=== PATIENT | male | born 1935 | race Caucasian/White ===

== ENCOUNTER → 2017-01-27 | Outpatient (CLI) | payer OTHER, MEDICARE ==
[~2017-01-27] MED LIST: ACYC1CAP8 PO; ASPEC81 PO; ATOR-54 PO; CYAN10004 PO; CYAN500T PO; FRS/40 PO; HYDR-3419 PO; INSDGI SC; INSULIN ASPART; METO25TA3 PO; MISCCAP80 PO; ONDA4TAB4 PO; POLY335019; SERT50TA PO
[2017-01-27 14:08] LABS: ALT/SGPT 29 U/L (12-78); AST/SGOT 14 U/L (15-37); BLOOD UREA NITROGEN 19 mg/dl (7-18); BUN/CREATININE RATIO 16.1 (10-20); CALCIUM 8.7 mg/dl (8.5-10.1); CARBON DIOXIDE 27 mmol/L (21-32); CHLORIDE 107 mmol/L (98-107); GLUCOSE 191 mg/dl (70-99); POTASSIUM 4.3 mmol/L (3.5-5.1); SODIUM 142 mmol/L (136-145)
[2017-01-27 14:11] LABS: ALB/GLOB RATIO 1.2 (0.9-2); ALKALINE PHOSPHATASE 123 U/L (45-117); CHOLESTEROL 169 mg/dl (0-200); CHOLESTEROL/HDL RATIO 3.9; HDL CHOLESTEROL 43 mg/dl; LDL CHOLESTEROL CALCULATED 97 mg/dl; TRIGLYCERIDES 147 mg/dl (0-150); VERY LOW DENSITY LIPOPROT CALC 29 mg/dl
[2017-01-27 14:37] LABS: ESTIMATED AVERAGE GLUCOSE 174 mg/dl; HA1C FLAG Normal (Normal)
== END | disposition home or self-care (01) ==
LOC: C.LABMFLN 10:07
PROVIDERS: ATTEND Family Medicine
DX: E78.5 Hyperlipidemia, unspecified (principal); N25.81 Secondary hyperparathyroidism of renal origin; E11.9 Type 2 diabetes mellitus without complications; E55.9 Vitamin D deficiency, unspecified; C81.90 Hodgkin lymphoma, unspecified, unspecified site

== ENCOUNTER → 2017-01-28 | Outpatient (CLI) | payer OTHER, MEDICARE ==
[~2017-01-28] MED LIST changes: +OPTIRAY 320 IV PRN
--- NOTE | 2017-01-28 12:51 | DIAGNOSTIC IMAGING REPORT ---
CT SCAN OF THE CHEST, ABDOMEN, AND PELVIS WITH IV CONTRAST CLINICAL HISTORY: Lymphoma. COMPARISON STUDY: CT scan of the chest, abdomen, and pelvis dated 10/19/2016. Chest CT dated 09/15/2011. TECHNIQUE: Following the IV administration of 93 of Optiray 320, CT scan of the chest, abdomen, and pelvis was performed from the thoracic inlet to the proximal femora. Images are reviewed in the axial, sagittal, and coronal planes. IV contrast was administered without complication. Automated dose control exposure was utilized. CT DOSE: 826.51 mGy.cm FINDINGS: CHEST: Thyroid: Imaged portions of the thyroid gland are normal in size and attenuation. Thoracic aorta: There is atherosclerotic calcification of the thoracic aorta, which is normal in caliber and demonstrates standard 3-vessel arch anatomy. No dissection is seen. Pulmonary vasculature: The pulmonary trunk is normal in caliber. There are no filling defects identified in the central pulmonary vessels to indicate pulmonary was. Note that this examination was not protocoled for evaluation of the pulmonary arteries. Heart: A cardiac pacemaker is again noted in the left chest wall. The heart is enlarged and without pericardial effusion. The coronary arteries are densely calcified. Lungs and pleural spaces: Emphysematous change is noted. No airspace consolidation or pleural effusion is seen. There is bibasilar scarring versus atelectasis. Peribronchial thickening is noted in the lower lobes. Fluid/secretions are present within the dependent lower lobe airways, right greater than left. There are numerous calcified granulomas. A 3 mm noncalcified pleural-based nodule in the right middle lobe on image #155 is unchanged from 2011 and of doubtful significance. The trachea is clear. Mediastinum: There are no pathologically enlarged mediastinal lymph nodes. Calcified nodes are identified. Lesley: Clear. Calcified hilar nodes are observed. Axillae: There is no axillary lymphadenopathy. Bony thorax: The skeletal structures are osteopenic. Degenerative change is noted throughout the thoracic spine. No lytic or blastic lesions are identified. ABDOMEN AND PELVIS: Liver: The contrast-enhanced liver is enlarged, measuring 21 cm in length. The liver is otherwise normal in contour and attenuation. There is no intrahepatic or ductal dilatation. The hepatic veins and portal veins are patent. Gallbladder: There are numerous calcified gallstones. Spleen: Normal in size and attenuation, measuring 10.0 cm in length. Pancreas: The pancreas is markedly atrophic. There are numerous glandular calcifications consistent with chronic pancreatitis. Mild prominence of the pancreatic duct is unchanged from previous and likely related to glandular atrophy. A 9 mm sidebranch IPMN is suspected in the uncinate process on image #166. Adrenal glands: Unremarkable. Kidneys: The kidneys are atrophic and without hydronephrosis. There is extensive bilateral perinephric stranding, similar to previous. Bibasilar subcentimeter cortical hypodensities likely reflect cysts but are too small for definitive characterization. Abdominal vasculature: There is ectasia and advanced atherosclerotic calcification of the abdominal aorta. There is likely segmental thrombosis of the right internal iliac artery. Stomach and bowel: There is a small hiatal hernia. The small bowel and colon are normal in course and caliber. There is mild to moderate colonic fecal retention. There is mild colonic diverticulosis without CT evidence of acute diverticulitis. The appendix is well-visualized and normal. Peritoneum: There is no intraperitoneal free air or abdominal ascites. There is a small fat-containing umbilical hernia. Foci of induration within the ventral abdominal pannus are likely related to subcutaneous injections. Lymphadenopathy: There has been no significant change in the appearance of retrocrural, retroperitoneal, and iliac chain lymphadenopathy as compared to 10/19/2016. A retrocrural lesion on image #163 measures 3.2 x 1.9 (previously measured 3.4 x 2.0 cm). Retroaortic lymphadenopathy on image #234 measures 2.0 x 4.7 cm (previously measured 2.0 x 4.4 cm). There is also bulky confluent external iliac chain lymphadenopathy. This measures up to 2.3 cm in thickness as seen on image #360 (previously measured up to 2.0 cm). There is no mesenteric or inguinal lymphadenopathy. Pelvic viscera: The bladder, prostate, and seminal vesicles are normal as visualized. Skeletal structures: The skeletal structures are osteopenic. Advanced degenerative change is seen at the sacroiliac joints bilateral. Insufficiency fracture may be present in the right medial ilium. Degenerative changes are also present involving the hips. There is moderate to advanced lumbosacral spondylosis. Vertebral body height is maintained throughout the lumbosacral spine. IMPRESSION: 1. No lymphadenopathy is identified in the thorax. 2. Cardiomegaly and emphysema. 3. There is no airspace consolidation or pleural effusion. 4. Hepatomegaly and cholelithiasis. 5. No significant change in the appearance of retrocrural, retroperitoneal, and iliac chain lymphadenopathy as compared to 10/19/2016. 6. The spleen is normal in size. 7. Unchanged extensive perinephric stranding/soft tissue. Lymphomatous involvement is not excluded. 8. There is evidence of chronic pancreatitis. 9. Colonic diverticulosis without CT evidence of acute diverticulitis. 10. Additional changes as above. Electronically signed by: Obed Wright M.D. 01/28/2017 12:50 PM Dictated Date/Time: 01/28/2017 12:32 PM
== END | disposition home or self-care (01) ==
LOC: C.CTS 11:20
PROVIDERS: ATTEND Nurse Practitioner Family
DX: C81.90 Hodgkin lymphoma, unspecified, unspecified site (principal); I51.7 Cardiomegaly; J43.9 Emphysema, unspecified; R16.0 Hepatomegaly, not elsewhere classified; K80.20 Calculus of gallbladder without cholecystitis without obstruction; K57.90 Diverticulosis of intestine, part unspecified, without perforation or abscess without bleeding

== ENCOUNTER → 2017-03-31 | Outpatient (CLI) | payer OTHER, MEDICARE ==
[~2017-03-31] MED LIST changes: +ACYC-57 PO; -ACYC1CAP8 PO; -OPTIRAY 320 IV PRN
[2017-03-31 17:53] LABS: BASO % 0.2 %; BASO ABS # 0.02 K/uL (0-0.2); COMPLETE YES; EOS % 0.2 %; HEMATOCRIT 39.8 % (42-52); IG% 0.6 %; LYMPH % 26.9 %; LYMPH ABS # 3.34 K/uL (1.2-3.4); MEAN CELL VOLUME 95.2 fL (80-100); MEAN CORPUSCULAR HEMOGLOBIN 31.3 pg (25-34); MEAN CORPUSCULAR HGB CONC 32.9 g/dl (32-36); MEAN PLATELET VOLUME 10.6 fL (7.4-10.4); MONO % 4.2 %; NEUT % 67.9 %; PLATELET COUNT 198 K/uL (130-400); RED BLOOD COUNT 4.18 M/uL (4.7-6.1); WHITE BLOOD COUNT 12.43 K/uL (4.8-10.8)
[2017-03-31 18:47] LABS: ALT/SGPT 37 U/L (12-78); AST/SGOT 16 U/L (15-37); BLOOD UREA NITROGEN 32 mg/dl (7-18); BUN/CREATININE RATIO 23.1 (10-20); CALCIUM 8.9 mg/dl (8.5-10.1); CARBON DIOXIDE 25 mmol/L (21-32); CHLORIDE 109 mmol/L (98-107); GLUCOSE 186 mg/dl (70-99); POTASSIUM 4.8 mmol/L (3.5-5.1); SODIUM 141 mmol/L (136-145)
[2017-03-31 18:50] LABS: ALB/GLOB RATIO 1.3 (0.9-2); ALKALINE PHOSPHATASE 94 U/L (45-117)
--- NOTE | 2017-04-21 08:51 | CODING QUERY NO DIAGNOSIS ---
TREATMENT RENDERED WITHOUT A DIAGNOSIS To promote full compliance with coding requirements relating to patient care, physician participation is requested in all cases of statistical technician uncertainty. Please assist us with providing a diagnosis/symptom for the test(s) below: A diagnosis/symptom was not documented on your Order. A valid diagnosis/symptom is required to bill all insurances. Please remember that we are unable to code a diagnosis of rule out, probable, possible, questionable, or suspected. Tests that require a diagnosis: * CBC W/ AUTO DIFF DIAGNOSIS: * CMP DIAGNOSIS: * LDH DIAGNOSIS: Provider Signature: Date: Thank you Car[employer] About Us Information Management Once completed, please kindly fax back to [phone] For questions please call [phone]
== END | disposition home or self-care (01) ==
LOC: C.LABMFLN 08:38
PROVIDERS: ATTEND Nurse Practitioner Family
DX: C81.90 Hodgkin lymphoma, unspecified, unspecified site (principal)

== ENCOUNTER → 2017-04-29 | Outpatient (CLI) | payer OTHER, MEDICARE ==
[~2017-04-29] MED LIST changes: +OPTIRAY 320 IV PRN
--- NOTE | 2017-04-29 12:45 | DIAGNOSTIC IMAGING REPORT ---
CHEST CT WITH CONTRAST CT DOSE: 1295.28 mGycm HISTORY: Lymphoma LYMPHOMA TECHNIQUE: Multiaxial CT images of the chest were performed following the intravenous administration of contrast. COMPARISON: 01/28/2017 FINDINGS: The lungs are clear. The mediastinal vascular structures are within normal limits. No mediastinal or hilar lymphadenopathy. No pleural effusion or pneumothorax. Limited views of the upper abdomen demonstrate a normal liver and spleen. No significant adenopathy. No focal infiltrative changes. Several small calcified granulomas stable from the prior study. IMPRESSION: No significant abnormality identified within the chest. No evidence for pathologic adenopathy. Electronically signed by: Paulino Carlton M.D. 04/29/2017 12:44 PM Dictated Date/Time: 04/29/2017 12:40 PM
--- NOTE | 2017-04-29 12:50 | DIAGNOSTIC IMAGING REPORT ---
CT ABD/PELVIS IV AND ORAL CONT CLINICAL HISTORY: LYMPHOMA COMPARISON STUDY: 01/28/2017 TECHNIQUE: Following the IV administration of 94 mL of Optiray-320, CT scan of the abdomen and pelvis was performed from the lung bases to the proximal femurs. Images are reviewed in the axial, sagittal, and coronal planes. IV contrast was administered without complication. CT DOSE: FINDINGS: Lower chest: There are tiny right middle lobe nodules, likely postinflammatory. There are atelectatic changes at the right medial posterior lung base. Liver: There is mild hepatic steatosis. No focal masses are visualized. Portal vein appears patent. Gallbladder: Cholelithiasis Spleen: Normal in size and attenuation. Pancreas: The pancreas is atrophic. There are multiple calcifications. There is ductal dilatation. The findings are likely secondary to chronic pancreatitis. There is a stable 9 mm cystic lesion in the uncinate process, likely representing a sidebranch IPMN Adrenal glands: Unremarkable. Kidneys: There is bilateral perinephric infiltration. There is a 1 cm right renal cyst. There is a 6 mm left renal cyst. No solid cortical masses are visualized.. Bowel: There are no transition zones indicate bowel obstruction. There is no acute diverticulitis. There is no evidence of acute appendicitis Peritoneum: There is no intraperitoneal free air or abdominal ascites. Vasculature: The abdominal aorta is normal in course and caliber. Adenopathy: There is no significant change in the retrocrural crural, aortocaval, and iliac chain adenopathy. Pelvic viscera: The bladder, and pelvic viscera are unremarkable. Skeletal structures: Squatting changes involve the SI joints bilaterally. There is an equivocal cold old healed insufficiency fracture right medial iliac bone IMPRESSION: 1. Cholelithiasis 2. No evidence of bowel obstruction. No evidence of free air 3. Stable "matted" retrocrural, retroperitoneal, and iliac chain lymphadenopathy 4. Stable bilateral perinephric infiltration 5. Evidence of chronic pancreatitis with pancreatic calcifications and ductal dilatation. 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 04/29/2017 12:49 PM Dictated Date/Time: 04/29/2017 12:40 PM
== END | disposition home or self-care (01) ==
LOC: C.CTS 11:18
PROVIDERS: ATTEND Internal Medicine Hematology & Oncology
DX: C81.90 Hodgkin lymphoma, unspecified, unspecified site (principal)

== ENCOUNTER → 2017-06-01 | Outpatient (CLI) | payer OTHER, MEDICARE ==
[~2017-06-01] MED LIST changes: -ACYC-57 PO; +ACYC1CAP8 PO; -OPTIRAY 320 IV PRN
[2017-06-01 13:13] LABS: BASO % 0.3 %; BASO ABS # 0.02 K/uL (0-0.2); COMPLETE YES; EOS % 3.8 %; HEMATOCRIT 39.4 % (42-52); IG% 0.1 %; LYMPH % 31.5 %; LYMPH ABS # 2.42 K/uL (1.2-3.4); MEAN CELL VOLUME 95.4 fL (80-100); MEAN CORPUSCULAR HEMOGLOBIN 32.9 pg (25-34); MEAN CORPUSCULAR HGB CONC 34.5 g/dl (32-36); MEAN PLATELET VOLUME 10.6 fL (7.4-10.4); NEUT % 57.3 %; PLATELET COUNT 164 K/uL (130-400); RED BLOOD COUNT 4.13 M/uL (4.7-6.1); WHITE BLOOD COUNT 7.69 K/uL (4.8-10.8)
[2017-06-01 13:36] LABS: ALB/GLOB RATIO 1.3 (0.9-2); ALKALINE PHOSPHATASE 108 U/L (45-117); ALT/SGPT 26 U/L (12-78); AST/SGOT 17 U/L (15-37); BLOOD UREA NITROGEN 16 mg/dl (7-18); CALCIUM 9.1 mg/dl (8.5-10.1); CARBON DIOXIDE 27 mmol/L (21-32); CHLORIDE 110 mmol/L (98-107); CHOLESTEROL 174 mg/dl (0-200); CHOLESTEROL/HDL RATIO 4.5; CREATININE 0.99 mg/dl (0.60-1.40); GLUCOSE 191 mg/dl (70-99); HDL CHOLESTEROL 39 mg/dl; LDL CHOLESTEROL CALCULATED 106 mg/dl; POTASSIUM 4.6 mmol/L (3.5-5.1); SODIUM 143 mmol/L (136-145); TRIGLYCERIDES 146 mg/dl (0-150); VERY LOW DENSITY LIPOPROT CALC 29 mg/dl
[2017-06-01 13:46] LABS: ESTIMATED AVERAGE GLUCOSE 180 mg/dl; HA1C FLAG Normal (Normal)
== END | disposition home or self-care (01) ==
LOC: C.LABMFLN 08:28
PROVIDERS: ATTEND Family Medicine
DX: E78.5 Hyperlipidemia, unspecified (principal); D64.9 Anemia, unspecified; E11.9 Type 2 diabetes mellitus without complications; E55.9 Vitamin D deficiency, unspecified

== ENCOUNTER → 2017-09-06 | Outpatient (CLI) | payer OTHER, MEDICARE ==
[2017-09-06 18:19] LABS: URINE APPEARANCE CLEAR (CLEAR); URINE BILIRUBIN NEG (NEG); URINE COLOR YELLOW; URINE NITRITE NEG (NEG); URINE SPECIFIC GRAVITY 1.009 (1.000-1.030); UROBILINOGEN NEG (NEG)
[2017-09-06 18:28] LABS: MANUAL MICROSCOPIC REQUIRED? NO; REVIEW REQ? NO
== END | disposition home or self-care (01) ==
LOC: C.LABMFLN 13:56
PROVIDERS: ATTEND Family Medicine
DX: R31.0 Gross hematuria (principal)

== ENCOUNTER → 2017-09-07 | Outpatient (CLI) | payer OTHER, MEDICARE ==
[2017-09-07 13:30] LABS: BLOOD UREA NITROGEN 14 mg/dl (7-18); CREATININE 1.04 mg/dl (0.60-1.40)
== END | disposition home or self-care (01) ==
LOC: C.LABMFLN 08:06
PROVIDERS: ATTEND Family Medicine
DX: R31.0 Gross hematuria (principal)

== ENCOUNTER → 2017-09-12 | Outpatient (CLI) | payer OTHER, MEDICARE ==
[~2017-09-12] MED LIST changes: +ACYC-57 PO; -ACYC1CAP8 PO; +OPTIRAY 320 IV PRN
--- NOTE | 2017-09-12 12:16 | DIAGNOSTIC IMAGING REPORT ---
CT ABD/PELVIS IV AND ORAL CONT CLINICAL HISTORY: R31.0 Gross [id number] LYMPHOMA COMPARISON STUDY: April 29, 2017 TECHNIQUE: Following the IV administration of 120 mL of Optiray-320, CT scan of the abdomen and pelvis was performed from the lung bases to the proximal femurs. Images are reviewed in the axial, sagittal, and coronal planes. IV contrast was administered without complication. A dose lowering technique was utilized adhering to the principles of ALARA. CT DOSE: 641.50 mGy.cm FINDINGS: Lower chest: The heart is normal in size and configuration, without pericardial effusion. The lung bases and pleural spaces are clear. Liver: The contrast-enhanced liver is normal in size, contour, and attenuation. There is no intrahepatic biliary ductal dilatation. The hepatic veins and portal veins are patent. Gallbladder: Cholelithiasis Spleen: Normal in size and attenuation. Pancreas: There is pancreatic ductal dilatation. There are multiple pancreatic calcifications. The findings remain similar to the prior study and are likely sequela of chronic pancreatitis. There is a stable 9 mm cystic lesion the uncinate process likely representing a sidebranch IPMN Adrenal glands: Unremarkable. Kidneys: There are too small to characterize bilateral renal hypodensities, the largest of which measures 11 mm and is located within the upper pole the right kidney. These remain stable, and likely represent renal cysts. There is bilateral perinephric infiltration right greater than left. There is infiltration of the right peripelvic soft tissues. This finding remains similar to the prior study. Bowel: There are no transition zones to indicate bowel obstruction. There is no acute diverticulitis. There are no findings to indicate acute appendicitis. Peritoneum: There is no intraperitoneal free air or abdominal ascites. Vasculature: The abdominal aorta is normal in course and caliber. Adenopathy: There is persistent increased soft tissue in the para-aortic, retroaortic, retrocrural, and iliac regions consistent with adenopathy. Pelvic viscera: The bladder, and pelvic viscera are unremarkable. Skeletal structures: Sclerotic changes involving the SI joints bilaterally. The bones are osteopenic. There are multilevel degenerative changes present. IMPRESSION: 1. Cholelithiasis 2. No evidence of bowel obstruction. No evidence of free air 3. Stable "matted" retrocrural, retroperitoneal and iliac chain lymphadenopathy 4. Stable bilateral perinephric infiltration, slightly more pronounced on the right. 5. Evidence of chronic pancreatitis with pancreatic calcifications and ductal dilatation. There is a suspected 9 mm side branch IPMN within the uncinate process which remain stable Electronically signed by: Zhao Barroso M.D. 09/12/2017 12:14 PM Dictated Date/Time: 09/12/2017 12:07 PM
== END | disposition home or self-care (01) ==
LOC: C.CTS 09:51
PROVIDERS: ATTEND Family Medicine
DX: R31.0 Gross hematuria (principal); K80.20 Calculus of gallbladder without cholecystitis without obstruction

== ENCOUNTER → 2017-10-10 | Outpatient (CLI) | payer OTHER, MEDICARE ==
[~2017-10-10] MED LIST changes: -OPTIRAY 320 IV PRN
[2017-10-10 12:58] LABS: BASO % 0.4 %; BASO ABS # 0.04 K/uL (0-0.2); COMPLETE YES; EOS % 2.5 %; HEMATOCRIT 40.5 % (42-52); IG% 0.3 %; LYMPH % 41.9 %; LYMPH ABS # 4.29 K/uL (1.2-3.4); MEAN CELL VOLUME 93.5 fL (80-100); MEAN CORPUSCULAR HEMOGLOBIN 31.2 pg (25-34); MEAN CORPUSCULAR HGB CONC 33.3 g/dl (32-36); MEAN PLATELET VOLUME 11.3 fL (7.4-10.4); MONO % 8.7 %; NEUT % 46.2 %; PLATELET COUNT 161 K/uL (130-400); RED BLOOD COUNT 4.33 M/uL (4.7-6.1); WHITE BLOOD COUNT 10.25 K/uL (4.8-10.8)
[2017-10-10 13:46] LABS: ALB/GLOB RATIO 1.2 (0.9-2); ALKALINE PHOSPHATASE 121 U/L (45-117); ALT/SGPT 22 U/L (12-78); AST/SGOT 16 U/L (15-37); BLOOD UREA NITROGEN 13 mg/dl (7-18); BUN/CREATININE RATIO 12.6 (10-20); CARBON DIOXIDE 28 mmol/L (21-32); CHLORIDE 106 mmol/L (98-107); CHOLESTEROL 149 mg/dl (0-200); CHOLESTEROL/HDL RATIO 3.5; CREATININE 1.04 mg/dl (0.60-1.40); GLUCOSE 150 mg/dl (70-99); HDL CHOLESTEROL 42 mg/dl; LDL CHOLESTEROL CALCULATED 77 mg/dl; POTASSIUM 4.3 mmol/L (3.5-5.1); SODIUM 139 mmol/L (136-145); TRIGLYCERIDES 148 mg/dl (0-150); VERY LOW DENSITY LIPOPROT CALC 30 mg/dl
[2017-10-10 13:55] LABS: ESTIMATED AVERAGE GLUCOSE 194 mg/dl; HA1C FLAG Normal (Normal)
== END | disposition home or self-care (01) ==
LOC: C.LABMFLN 07:34
PROVIDERS: ATTEND Family Medicine
DX: E78.5 Hyperlipidemia, unspecified (principal); D64.9 Anemia, unspecified; E11.9 Type 2 diabetes mellitus without complications; I50.9 Heart failure, unspecified; E55.9 Vitamin D deficiency, unspecified

== ENCOUNTER → 2017-10-24 | Outpatient (CLI) | payer OTHER, MEDICARE ==
[~2017-10-24] MED LIST changes: +OPTIRAY 320 IV PRN
--- NOTE | 2017-10-24 17:29 | DIAGNOSTIC IMAGING REPORT ---
CT OF THE CHEST WITH IV CONTRAST CLINICAL HISTORY: Lymphoma. COMPARISON STUDY: Chest CT April 29, 2017. TECHNIQUE: Following IV administration of 90 mL of Optiray-320, helical axial images of the chest were obtained. Sagittal and coronal reconstructions were viewed as well as maximal intensity projections on an independent 3-D workstation. A dose lowering technique was utilized adhering to the principles of ALARA. FINDINGS: No enlarged axillary, mediastinal or hilar lymph nodes are present. Cardiomegaly is unchanged. There is no pericardial effusion. A left subclavian pacemaker is in place. Extensive coronary artery calcification is noted. Central airways are patent. Several calcified and noncalcified pulmonary nodules are unchanged from study of February 12, 2014. These are benign given stability. There is mild mucus within several lower lobe segmental bronchi. No pneumothorax or pleural effusion is present. No suspicious osseous lesions are present. The abdomen and pelvis will be reported separately. IMPRESSION: No thoracic lymphadenopathy. No change in appearance of the chest. Electronically signed by: Camron Santos M.D. 10/24/2017 5:28 PM Dictated Date/Time: 10/24/2017 4:29 PM
--- NOTE | 2017-10-24 17:29 | DIAGNOSTIC IMAGING REPORT ---
CT OF THE ABDOMEN AND PELVIS WITH CONTRAST CLINICAL HISTORY: Lymphoma. COMPARISON STUDY: CT of the abdomen and pelvis September 12, 2017 and PET/CT March 22, 2016. TECHNIQUE: Following IV administration of 90 mL of Optiray-320, axial images of the abdomen and pelvis were obtained from the lung bases to the proximal femurs. Images were reviewed in the axial, sagittal, and coronal planes. IV contrast was administered without complication. A dose lowering technique was utilized adhering to the principles of ALARA. Oral contrast was administered. CT DOSE: 961.52 mGy.cm FINDINGS: The chest will be reported separately. The liver, spleen, adrenal glands are unremarkable. Gallstones are noted within the gallbladder. Pancreatic ductal dilatation is again noted. This is either unchanged or slightly improved since prior exam. Pancreatic parenchymal calcifications and glandular atrophy are noted. This is unchanged. This suggest chronic pancreatitis. Bilateral perinephric infiltration as well as infiltration within each renal sinus is unchanged. Ill-defined retrocrural/retroperitoneal and iliac chain soft tissue suggests lymphadenopathy which is unchanged since prior exam of September 12, 2017. Right external iliac lymphadenopathy measures 1.8 cm in short axis diameter. Left para-aortic lymphadenopathy located below the level of the left renal vein measures 1.9 cm in AP extent. No new sites of lymphadenopathy are identified on this examination. There is no evidence for a bowel obstruction. No suspicious osseous lesion is present. IMPRESSION: No change in ill-defined retrocrural, retroperitoneal and iliac chain lymphadenopathy since prior exam. This suggests lymphoma and may reflect treated lymphoma. No change in bilateral perinephric/renal sinus infiltration which suggests lymphomatous involvement which is stable. Electronically signed by: Camron Santos M.D. 10/24/2017 5:28 PM Dictated Date/Time: 10/24/2017 4:18 PM
== END | disposition home or self-care (01) ==
LOC: C.CTS 15:17
PROVIDERS: ATTEND Nurse Practitioner Family
DX: C81.90 Hodgkin lymphoma, unspecified, unspecified site (principal); C91.92 Lymphoid leukemia, unspecified, in relapse

== ENCOUNTER 2017-11-28 05:22 | Day surgery (SDC) | payer OTHER, MEDICARE ==
--- NOTE | 2017-11-18 10:47 | PAT Medication Instructions ---
Service Date Nov 18, 2017. Current Home Medication List Aspirin (Aspirin Ec), 81 MG PO QPM Atorvastatin (Lipitor), 40 MG PO QPM Cholecalciferol (Vitamin D3), 1 TAB PO QPM Cyanocobalamin (Vitamin B-12 1000 Mcg), 1 TAB PO QAM Furosemide (Lasix), 20 MG PO QAM Insulin Glargine (Lantus), 38 UNITS SC HS Metoprolol Succ (Toprol Xl) (Toprol-Xl), 12.5 MG PO QAM Nitroglycerin (Nitrostat), 0.4 MG UT PRN Sertraline (Zoloft), 1 TAB PO HS [Humalog], UNITS SC UD Medication Instructions For Your Scheduled Surgery - Hold the following medications the morning of surgery: Cyanocobalamin (Vitamin B-12 1000 Mcg), 1 TAB PO QAM Furosemide (Lasix), 20 MG PO QAM [Humalog], UNITS SC UD - Take the following medications the morning of surgery with a sip of water: Metoprolol Succ (Toprol Xl) (Toprol-Xl), 12.5 MG PO QAM Nitroglycerin (Nitrostat), 0.4 MG UT PRN (if needed) - Take the following medications as scheduled the night before surgery: Sertraline (Zoloft), 1 TAB PO HS Nitroglycerin (Nitrostat), 0.4 MG UT PRN (if needed) [Humalog], UNITS SC UD Atorvastatin (Lipitor), 40 MG PO QPM Cholecalciferol (Vitamin D3), 1 TAB PO QPM Aspirin (Aspirin Ec), 81 MG PO QPM (to continue per surgeon and supervisor contact lens) - For Insulin Dependent Diabetic patients: Test blood sugar A.M. of surgery. - If Blood sugar greater than 150, take half of your regular dose of: Insulin Glargine (Lantus), take 19 units - If Blood sugar less than 150, do not take any: Insulin Glargine (Lantus ) If you have any questions please call us at [phone] or [phone] or [phone]
[2017-11-18 11:57] LABS: BASO % 0.5 %; BASO ABS # 0.05 K/uL (0-0.2); EOS % 2.5 %; EOS ABS # 0.23 K/uL (0-0.5); HEMATOCRIT 39.2 % (42-52); HEMOGLOBIN 13.5 g/dL (14.0-18.0); IG# 0.02 K/uL (0.00-0.02); LYMPH % 42.1 %; LYMPH ABS # 3.93 K/uL (1.2-3.4); MEAN CELL VOLUME 92.7 fL (80-100); MEAN CORPUSCULAR HEMOGLOBIN 31.9 pg (25-34); MEAN CORPUSCULAR HGB CONC 34.4 g/dl (32-36); MEAN PLATELET VOLUME 11.5 fL (7.4-10.4); MONO % 8.9 %; MONO ABS # 0.83 K/uL (0.11-0.59); NEUT % 45.8 %; NEUT ABS # 4.27 K/uL (1.4-6.5); PLATELET COUNT 140 K/uL (130-400); RED CELL DISTRIBUTION WIDTH CV 14.4 % (11.5-14.5); RED CELL DISTRIBUTION WIDTH SD 48.6 fL (36.4-46.3); WHITE BLOOD COUNT 9.33 K/uL (4.8-10.8)
[2017-11-18 12:24] LABS: CALCIUM 9.2 mg/dl (8.5-10.1); CREATININE 1.09 mg/dl (0.60-1.40); POTASSIUM 4.5 mmol/L (3.5-5.1)
[~2017-11-28] VITALS: Ht 170.2 cm; Wt 87.7 kg
[~2017-11-28 05:22] MED LIST changes: -ACYC-57 PO; -ASPEC81 PO; +ASPI81TA28 PO; +CHOL20007 PO; -CYAN500T PO; +HUMALOG SC; -HYDR-3419 PO; -INSULIN ASPART; -MISCCAP80 PO; +NTRGSL/4 UT; -ONDA4TAB4 PO; -OPTIRAY 320 IV PRN; -POLY335019
[2017-11-28 05:50] VITALS: BP_SYST 57; PULSE 61; TEMP 36.8; O2SAT 95; Ht 170.2 cm; Wt 87.7 kg
[2017-11-28] MEDS ORDERED: LACTATED RINGER'S 1000ML 1,000 ML IV SCH (06:00)
[2017-11-28] MEDS ORDERED: CIPROFLOXACIN / D5W 400 MG IV SCH (06:00)
--- NOTE | 2017-11-28 06:55 | History & Physical Bridge Note ---
H&P Re-Evaluation Bridge Note: I have examined the patient, reviewed the History & Physical and in the interval since the performance of the History & Physical I have noted the following changes of clinical significance: No changes noted
[2017-11-28] MEDS ORDERED: PROPOFOL IV EMULSION 10 MG/ML 20 ML VIAL IV ONE (06:57)
[2017-11-28] MEDS ORDERED: LIDOCAINE HCL 2% 2 ML VIAL (20MG/ML) ONE (06:57)
[2017-11-28] MEDS ORDERED: DEXAMETHASONE SOD INJ 4 MG/ML VIAL ONE (06:57)
[2017-11-28] MEDS ORDERED: ONDANSETRON INJ 2 MG/ML 2 ML VIAL ONE (06:57)
[2017-11-28] MEDS ORDERED: FENTANYL CITRATE INJ 50 MCG/1 ML 2 ML VIAL ONE (06:58)
[2017-11-28] MEDS ORDERED: GENTAMICIN INJ 80 MG in DEXTROSE 5% 100ML 100 ML IV ONE (07:15)
[2017-11-28] MEDS ORDERED: PHENYLEPHRINE 100MCG/ML 5ML SYR ONE (07:45)
[2017-11-28] MEDS ORDERED: ETOMIDATE 2 MG/ML 20 ML VIAL IV ONE (07:45)
--- NOTE | 2017-11-28 07:50 | [facility] Post Operative Brief Note ---
Immediate Operative Summary Operative Date Nov 28, 2017. Pre-Operative Diagnosis Bladder Tumor Post-Operative Diagnosis Bladder Tumor Procedure(s) Performed Transurethral Resection Bladder Tumor Surgeon Dr. Dowell Instrument Specialist Surgeon(s) none Estimated Blood Loss 0mL Findings papillary bladder tumor Specimens A: Bladder Tumor Drains none Anesthesia feneral Complication(s) None Disposition Recovery Room / PACU
[2017-11-28] MEDS ORDERED: PHEN-876 PO (08:00)
[2017-11-28] MEDS ORDERED: OXYC-57 PO (08:00)
--- NOTE | 2017-11-28 08:03 | Discharge Instructions ---
Discharge Instructions Date of Service Nov 28, 2017. Visit Reason for Visit: Bladder Tumor Discharge Discharge Diagnosis / Problem: Bladder Tumor Discharge Goals Goal(s): Therapeutic intervention Activity Recommendations Activity Limitations: resume your previous activity (take it easy today) Exercise/Sports Limitations: gradually increase as tolerated May Resume Sexual Activity: when tolerated Shower/Bathe: no limitations Driving or Machine Use: resume 1 day after discharge Anesthesia . Post Anesthesia Instructions: If you have had General Anesthesia or IV Sedation: * Do not drive today. * Resume driving when surgeon permits. * Do not make important decisions or sign legal documents today. * Call surgeon for: 1. Temperature elevations greater than 101 degrees F. 2. Uncontrollable pain. 3. Excessive bleeding. 4. Persistent nausea and vomiting. 5. Medication intolerance (nausea, vomiting or rash). * For nausea and vomiting use only clear liquids such as: tea, soda, bouillon until nausea subsides, then gradually increase diet as tolerated. * If you have any concerns or questions, call your surgeon's office. If physician is unavailable and it is an emergency, call 911 or go to the nearest emergency room. . Diet Recommendations Recommended Home Diet: resume previous diet Procedures Procedures Performed: Transurethral Resection Bladder Tumor Pending Studies Studies pending at discharge: no Medical Emergencies . Who to Call and When: Medical Emergencies: If at any time you feel your situation is an emergency, please call 911 immediately. . Non-Emergent Contact Non-Emergency issues call your: Urologist Call Non-Emergent contact if: temperature is above 101.5, your pain is not controlled . . "Provider Documentation" section prepared by Yariel Dowell. . [place] Drug Monitoring Program Search Results: patient reviewed within database
[2017-11-28] MEDS ORDERED: OXYCODONE/ACETAMINOPHEN 5-325 TAB PO PRN (08:15)
[2017-11-28] MEDS ORDERED: PHENAZOPYRIDINE HCL 200 MG TAB PO PRN (08:15)
--- NOTE | 2017-11-28 08:25 | [facility] Operative Report ---
Operative Report Operative Date Nov 28, 2017. Pre-Operative Diagnosis Bladder Tumor Post-Operative Diagnosis Bladder Tumor Procedure(s) Performed Transurethral Resection Bladder Tumor Surgeon Dr. Dowell Director Product Safety Surgeon(s) none Estimated Blood Loss 0mL Findings Cystoscopy showed a normal anterior urethra. Prostatic fossa was moderately obstructing with kissing lateral lobes. Bladder showed one plus trabeculation. 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 Complication(s) None Disposition Recovery Room / PACU Indications Patient's immediate 8-year-old white male who on evaluation for gross hematuria was found to have several papillary bladder tumors being brought in for resection Description of Procedure After the induction of an adequate general anesthetic and appropriate timeout patient was placed in the dorsal lithotomy position. Lower abdomen and genitalia were prepped with Hibiclens and draped in sterile fashion. Next using a 22 Greek cystoscope routine cystoscopic exam was performed with the above-noted findings with the 30 and 70 lenses. Next using the bipolar cautery and resection loop the tumors were resected in their entirety. The area was then fulgurated for hemostasis. Care was taken to avoid any injury to either ureteral orifice. After resecting all of the visible tumor Parth syringe was used to evacuate tumor from the bladder which was handed off the table as a specimen. Bladder was reinspected there was no bleeding from the resection site. Patient's bladder was then drained resection scope and sheath removed. All needle sponges and instrument counts are correct at the end of the case. Pt tolerated the procedure well and was taken recovery room in stable condition I attest to the content of the Intraoperative Record and any orders documented therein. Any exceptions are noted below.
--- NOTE | 2017-11-28 08:37 | Anesthesiology Progress Note ---
Anesthesia Post Op Note Date & Time Nov 28, 2017 at 08:37 Vital Signs Pain Intensity: 1 Vital Signs Past 12 Hours Date Time Temp Pulse Resp B/P (MAP) Pulse Ox O2 Delivery O2 Flow Rate FiO2 11/28/17 08:32 36.5 60 14 11/28/17 08:32 60 14 98 11/28/17 08:31 113/54 11/28/17 08:27 67 19 96 11/28/17 08:27 60 19 11/28/17 08:25 116/58 11/28/17 08:22 61 14 11/28/17 08:22 66 14 98 11/28/17 08:21 112/64 11/28/17 08:17 60 24 11/28/17 08:17 60 24 100 11/28/17 08:15 128/61 11/28/17 08:12 61 20 100 11/28/17 08:12 61 20 11/28/17 08:11 116/64 11/28/17 08:07 60 17 100 11/28/17 08:07 60 17 11/28/17 08:06 128/64 11/28/17 08:03 120/62 11/28/17 08:02 60 19 11/28/17 08:02 63 19 100 11/28/17 07:57 36.7 60 12 126/61 100 Oxymask 7 11/28/17 05:50 36.8 61 18 57/ (19) 95 Room Air Notes Mental Status: alert / awake / arousable, participated in evaluation Pt Amnestic to Procedure: Yes Nausea / Vomiting: adequately controlled Pain: adequately controlled Airway Patency, RR, SpO2: stable & adequate BP & HR: stable & adequate Hydration State: stable & adequate Anesthetic Complications: no major complications apparent
[2017-11-28 08:40] VITALS: BP 106/62; PULSE 60; TEMP 36.9; O2SAT 95
[2017-11-28] MEDS ORDERED: EpHEDrine SULFATE INJ 50 MG/ML AMP IV PRN (08:45)
[2017-11-28] MEDS ORDERED: ATROPINE SULFATE 0.1 MG/ML 5ML SYR IV PRN (08:45)
[2017-11-28 09:15] VITALS: BP 129/58; PULSE 60; TEMP 36.6; O2SAT 97
[2017-11-28 09:32] VITALS: BP 138/64; PULSE 62; TEMP 36.5; O2SAT 96
== END 2017-11-28 09:36 | disposition home or self-care (01) ==
LOC: C.ACU 05:22
PROVIDERS: ATTEND Urology
DX: C67.9 Malignant neoplasm of bladder, unspecified (principal); E11.9 Type 2 diabetes mellitus without complications; I11.0 Hypertensive heart disease with heart failure; I25.2 Old myocardial infarction; I25.10 Atherosclerotic heart disease of native coronary artery without angina pectoris; N18.2 Chronic kidney disease, stage 2 (mild); E78.5 Hyperlipidemia, unspecified; I50.20 Unspecified systolic (congestive) heart failure; E66.9 Obesity, unspecified; Z68.30 Body mass index [BMI] 30.0-30.9, adult; Z79.82 Long term (current) use of aspirin; Z79.4 Long term (current) use of insulin; Z82.49 Family history of ischemic heart disease and other diseases of the circulatory system; Z83.3 Family history of diabetes mellitus; Z80.9 Family history of malignant neoplasm, unspecified

== ENCOUNTER → 2018-01-18 | Outpatient (CLI) | payer OTHER, MEDICARE ==
[~2018-01-18] MED LIST changes: +OXYC-57 PO; +PHEN-876 PO
[2018-01-18 12:22] LABS: HEMATOCRIT 39.3 % (42-52); HEMOGLOBIN 13.2 g/dL (14.0-18.0); MEAN CELL VOLUME 91.2 fL (80-100); MEAN CORPUSCULAR HEMOGLOBIN 30.6 pg (25-34); MEAN CORPUSCULAR HGB CONC 33.6 g/dl (32-36); MEAN PLATELET VOLUME 10.7 fL (7.4-10.4); PLATELET COUNT 137 K/uL (130-400); RED CELL DISTRIBUTION WIDTH CV 14.7 % (11.5-14.5); RED CELL DISTRIBUTION WIDTH SD 49.4 fL (36.4-46.3); WHITE BLOOD COUNT 8.95 K/uL (4.8-10.8)
[2018-01-18 13:07] LABS: ALBUMIN 3.3 gm/dl (3.4-5.0); ALT/SGPT 22 U/L (12-78); AST/SGOT 10 U/L (15-37); BLOOD UREA NITROGEN 17 mg/dl (7-18); CALCIUM 8.8 mg/dl (8.5-10.1); CARBON DIOXIDE 28 mmol/L (21-32); CREATININE 1.12 mg/dl (0.60-1.40); GLUCOSE 279 mg/dl (70-99); POTASSIUM 4.4 mmol/L (3.5-5.1); SODIUM 139 mmol/L (136-145)
[2018-01-18 13:09] LABS: ALKALINE PHOSPHATASE 112 U/L (45-117); TOTAL PROTEIN 6.3 gm/dl (6.4-8.2)
[2018-01-18 13:28] LABS: BASO % 0.3 %; BASO ABS # 0.03 K/uL (0-0.2); EOS ABS # 0.18 K/uL (0-0.5); IG# 0.02 K/uL (0.00-0.02); LYMPH % 40.9 %; LYMPH ABS # 3.66 K/uL (1.2-3.4); MONO % 7.6 %; MONO ABS # 0.68 K/uL (0.11-0.59); NEUT ABS # 4.38 K/uL (1.4-6.5)
== END | disposition home or self-care (01) ==
LOC: C.LABMFLN 09:31
PROVIDERS: ATTEND Internal Medicine Hematology & Oncology
DX: C81.90 Hodgkin lymphoma, unspecified, unspecified site (principal)

== ENCOUNTER → 2018-02-02 | Outpatient (CLI) | payer OTHER, MEDICARE ==
[2018-02-02 13:06] LABS: HEMATOCRIT 41.6 % (42-52); HEMOGLOBIN 13.7 g/dL (14.0-18.0); MEAN CELL VOLUME 91.8 fL (80-100); MEAN CORPUSCULAR HEMOGLOBIN 30.2 pg (25-34); MEAN CORPUSCULAR HGB CONC 32.9 g/dl (32-36); MEAN PLATELET VOLUME 11.6 fL (7.4-10.4); PLATELET COUNT 162 K/uL (130-400); RED CELL DISTRIBUTION WIDTH CV 14.6 % (11.5-14.5); RED CELL DISTRIBUTION WIDTH SD 49.5 fL (36.4-46.3); WHITE BLOOD COUNT 9.58 K/uL (4.8-10.8)
[2018-02-02 13:47] LABS: HEMOGLOBIN A1C 8.3 % (4.5-5.6)
[2018-02-02 14:20] LABS: ALBUMIN 3.5 gm/dl (3.4-5.0); ALT/SGPT 22 U/L (12-78); AST/SGOT 16 U/L (15-37); BLOOD UREA NITROGEN 17 mg/dl (7-18); CALCIUM 8.9 mg/dl (8.5-10.1); CARBON DIOXIDE 28 mmol/L (21-32); CREATININE 1.05 mg/dl (0.60-1.40); GLUCOSE 114 mg/dl (70-99); POTASSIUM 4.4 mmol/L (3.5-5.1); SODIUM 141 mmol/L (136-145)
[2018-02-02 14:23] LABS: ALKALINE PHOSPHATASE 118 U/L (45-117); CHOLESTEROL 153 mg/dl (0-200); LDL CHOLESTEROL CALCULATED 82 mg/dl; TOTAL PROTEIN 6.6 gm/dl (6.4-8.2)
[2018-02-02 14:39] LABS: BASO % 0.3 %; BASO ABS # 0.03 K/uL (0-0.2); EOS % 3.3 %; EOS ABS # 0.32 K/uL (0-0.5); IG# 0.02 K/uL (0.00-0.02); LYMPH % 50.5 %; LYMPH ABS # 4.84 K/uL (1.2-3.4); MONO % 4.3 %; MONO ABS # 0.41 K/uL (0.11-0.59); NEUT % 41.4 %; NEUT ABS # 3.96 K/uL (1.4-6.5)
== END | disposition home or self-care (01) ==
LOC: C.LABMFLN 07:41
PROVIDERS: ATTEND Family Medicine
DX: E78.5 Hyperlipidemia, unspecified (principal); I25.10 Atherosclerotic heart disease of native coronary artery without angina pectoris; E11.9 Type 2 diabetes mellitus without complications; E55.9 Vitamin D deficiency, unspecified; C81.90 Hodgkin lymphoma, unspecified, unspecified site

== ENCOUNTER → 2018-03-02 | Outpatient (CLI) | payer OTHER, MEDICARE | END | disposition home or self-care (01) | LOC: C.PATHSPEC 10:25 | PROVIDERS: ATTEND Urology | DX: D49.4 Neoplasm of unspecified behavior of bladder (principal) ==

== ENCOUNTER → 2018-06-01 | Outpatient (CLI) | payer OTHER, MEDICARE ==
[~2018-06-01] MED LIST changes: -OXYC-57 PO; -PHEN-876 PO
== END | disposition home or self-care (01) ==
LOC: C.LABSPEC 17:00
PROVIDERS: ATTEND Urology
DX: D49.4 Neoplasm of unspecified behavior of bladder (principal)

== ENCOUNTER → 2018-06-06 | Outpatient (CLI) | payer OTHER, MEDICARE ==
[2018-06-06 13:15] LABS: HEMATOCRIT 41.1 % (42-52); HEMOGLOBIN 13.5 g/dL (14.0-18.0); MEAN CELL VOLUME 92.8 fL (80-100); MEAN CORPUSCULAR HEMOGLOBIN 30.5 pg (25-34); MEAN CORPUSCULAR HGB CONC 32.8 g/dl (32-36); MEAN PLATELET VOLUME 11.7 fL (7.4-10.4); PLATELET COUNT 144 K/uL (130-400); RED CELL DISTRIBUTION WIDTH CV 15.4 % (11.5-14.5); RED CELL DISTRIBUTION WIDTH SD 52.3 fL (36.4-46.3); WHITE BLOOD COUNT 8.86 K/uL (4.8-10.8)
[2018-06-06 13:35] LABS: ALBUMIN 3.3 gm/dl (3.4-5.0); ALKALINE PHOSPHATASE 120 U/L (45-117); ALT/SGPT 27 U/L (12-78); AST/SGOT 17 U/L (15-37); BLOOD UREA NITROGEN 15 mg/dl (7-18); CALCIUM 8.5 mg/dl (8.5-10.1); CARBON DIOXIDE 28 mmol/L (21-32); CHOLESTEROL 148 mg/dl (0-200); CREATININE 1.02 mg/dl (0.60-1.40); GLUCOSE 118 mg/dl (70-99); LDL CHOLESTEROL CALCULATED 80 mg/dl; POTASSIUM 4.3 mmol/L (3.5-5.1); SODIUM 143 mmol/L (136-145); TOTAL PROTEIN 6.3 gm/dl (6.4-8.2)
[2018-06-06 14:22] LABS: HEMOGLOBIN A1C 8.3 % (4.5-5.6)
[2018-06-06 15:07] LABS: BASO % 0.2 %; BASO ABS # 0.02 K/uL (0-0.2); EOS % 1.9 %; EOS ABS # 0.17 K/uL (0-0.5); IG# 0.01 K/uL (0.00-0.02); LYMPH % 51.7 %; LYMPH ABS # 4.58 K/uL (1.2-3.4); MONO ABS # 0.44 K/uL (0.11-0.59); NEUT % 41.1 %; NEUT ABS # 3.64 K/uL (1.4-6.5)
== END | disposition home or self-care (01) ==
LOC: C.LABMFLN 08:01
PROVIDERS: ATTEND Family Medicine
DX: E78.5 Hyperlipidemia, unspecified (principal); I25.10 Atherosclerotic heart disease of native coronary artery without angina pectoris; E11.9 Type 2 diabetes mellitus without complications; E55.9 Vitamin D deficiency, unspecified

== ENCOUNTER 2021-02-23 21:08 | Inpatient (IN) ==
[2021-02-23] MEDS ORDERED: AZITHROMYCIN 500 MG in DEXTROSE 5% 250 ML IV ONE (22:22)
[2021-02-23] MEDS ORDERED: cefTRIAXone SODIUM 1,000 MG/50 ML BAG IV STA (22:22)
[2021-02-23] MEDS ORDERED: ALBUT/IPRATROP 3MG/0.5MG NEB 3 ML VIAL NEB STA (22:23)
--- NOTE | 2021-02-23 22:27 | Emergency Department Note ---
History of Present Illness General Chief complaint: Illness Stated complaint: SOB, WEAKNESS Time Seen by Provider: 02/23/21 22:07 Source: patient Mode of arrival: ambulatory Limitations: no limitations History of Present Illness Provider complaint: Shortness of breath and weakness This is a 85-year-old male who presents to the ED with a chief complaint of shortness of breath and weakness. The patient states that he was admitted to [facility] last week for several days and signed out AGAINST MEDICAL ADVICE on Tuesday. He was therefore right-sided pneumonia and elevated troponin as well as some abnormal kidney function. The patient reports that he was not happy with care and he was a little confused based on some meds that they were giving him and he signed out AGAINST MEDICAL ADVICE and appropriately. He is not feeling any better and is getting worse since he has been discharge from the hospital. He was sent here by Dr. Gómez, his PCP for admission. Home Medications Medication Instructions Recorded Confirmed Type nitroglycerin 0.4 mg sublingual 0.4 mg SL .COMPLEX 06/12/19 02/23/21 History tablet cholecalciferol (vitamin D3) 50 2,000 units PO DAILY #90 cap 06/27/19 02/23/21 Rx mcg (2,000 unit) capsule cyanocobalamin (vitamin B-12) 1,000 mcg PO DAILY #90 tab 06/27/19 02/23/21 Rx 1,000 mcg tablet metoprolol succinate 25 mg 12.5 mg PO BID #90 tab 06/27/19 02/23/21 Rx tablet,extended release 24 hr ranolazine 500 mg tablet,extended 500 mg PO BID #180 tab 06/27/19 02/23/21 Rx release,12 hr fluticasone furoate 100 1 puffs INH DAILY 08/21/19 02/23/21 History mcg/actuation blister powder for inhalation levothyroxine 50 mcg capsule 50 mcg PO DAILY #30 cap 02/26/20 02/23/21 Rx insulin glargine 100 unit/mL (3 44 unit SQ HS #15 ml 07/16/20 02/23/21 Rx mL) subcutaneous pen ketoconazole 2 % shampoo 1 applic TOPICAL .2 x weekly #120 09/25/20 02/23/21 Rx ml furosemide 20 mg tablet 20 mg PO DAILY #90 tab 12/18/20 02/23/21 Rx albuterol sulfate 90 mcg/actuation 2 puff INH Q4H PRN #8 g 12/25/20 02/23/21 Rx aerosol inhaler atorvastatin 40 mg tablet 40 mg PO DAILY #90 tab 02/17/21 02/23/21 Rx Portable Oxygen See Rx Instructions .ROUTE 02/23/21 02/23/21 Rx .COMPLEX #1 ea aspirin [Aspirin Low Dose] 81 mg PO DAILY 02/23/21 02/23/21 History azithromycin 250 mg tablet 250 mg PO .COMPLEX 5 Days #6 tab 02/23/21 02/23/21 Rx MDD 2 cefuroxime axetil 500 mg tablet 500 mg PO BID 10 Days #20 tab 02/23/21 02/23/21 Rx gabapentin 600 mg tablet 600 mg PO .QHS #90 tab 02/23/21 02/23/21 Rx insulin lispro 100 unit/mL See Rx Instructions SQ TID #15 ml 02/23/21 02/23/21 Rx subcutaneous pen levofloxacin 750 mg PO UD 02/23/21 02/23/21 History prednisone 10 mg tablet 10 mg PO .COMPLEX 10 Days #30 tab 02/23/21 02/23/21 Rx sacubitril 24 mg-valsartan 26 mg 1 tab PO BID #60 tab 02/23/21 02/23/21 Rx tablet Allergies Allergy/AdvReac Type Severity Reaction Status Date / Time levofloxacin Allergy Unknown UNKNOWN Verified 02/23/21 23:02 REACTION Past Med/Surg History Medical History Acute renal failure CLL (chronic lymphocytic leukemia) Dyspnea on exertion Elevated troponin Hodgkin lymphoma Ischemic cardiomyopathy Lumbar spinal stenosis severe at L4-5 Lymphoma Memory loss Myocardial infarction Neuropathy Pacemaker Postherpetic neuralgia Surgical History History of carpal tunnel surgery of left wrist History of cataract surgery History of colonoscopy Hx of detached retina repair Status post placement of cardiac pacemaker Family History Sister Colon cancer Cancer Unknown No problems noted. Brother Cardiac disorder Cancer Father Cancer Mother Cardiac disorder Diabetes Hypertension Social History Smoking Status: Never smoker Hx Alcohol Use: No Hx Substance Use: No Preferred Language: [place] Communication Ability: Effective Visual Impairment: Limited Hearing Ability: Normal Beliefs That Will Affect Care: None marital status: Current Living Situation: Spouse current occupational status: retired Feels Safe at Home: Yes Childhood Exposure to Second-Hand Smoke: No Dental Care, Regularly: Yes Physical Activity Frequency: Daily Seatbelt Use: always Sunscreen Use: No Review of Systems A total of 10 systems reviewed and were otherwise negative Physical Exam Vital Signs Vital Signs - 24 hr 02/23/21 21:13 02/23/21 23:28 Temperature 36.0 C L Temperature Source Temporal Artery Scan Pulse Rate 65 Pulse Rate [Right Finger] 63 Respiratory Rate 22 18 Respiratory Effort / Characteristics Short of Breath Non-Labored Spontaneous Respiratory Depth Normal Respiratory Pattern Regular Blood Pressure 98/59 L Blood Pressure Mean 72 Blood Pressure Position Sitting Pulse Oximetry 93 96 Oxygen Delivery Method Room Air Nasal Cannula Oxygen Flow Rate 2 Sepsis Recent Fever Within 48 Hours No Sepsis New/Unexplained Change in Mental Status No Sepsis Action Taken by Nursing Physician Notified CONSTITUTIONAL/VITAL SIGNS: Reviewed / noted above. GENERAL: Non-toxic in appearance. INTEGUMENTARY: Warm, dry, and [place]. HEAD: Normocephalic. EYES: without scleral icterus or trauma. ENT/OROPHARYNX: clear and moist. LYMPHADENOPATHY/NECK: Is supple without lymphadenopathy or meningismus. RESPIRATORY: Lungs clear and equal. CARDIOVASCULAR: Regular rate and rhythm. GI/ABDOMEN: Soft and nontender. No organomegaly or pulsatile mass. No rebound or guarding. Normal bowel sounds. EXTREMITIES: Warm and well perfused. BACK: No CVA tenderness. NEUROLOGICAL: Intact without focal deficits. PSYCHIATRIC: normal affect. MUSCULOSKELETAL: Normally developed with good muscle tone. TRIAGE NURSING DOCUMENTATION REVIEWED. Course Administered Medications Discontinued Medications Albuterol (Albut/Ipratrop 3mg/0.5mg Neb 3 Ml Vial) 3 ml NEB NOW STA Stop: 02/23/21 22:24 Last Admin: 02/23/21 23:28 Dose: 3 ml Documented by: [id number] Azithromycin 500 mg/ Dextrose 255 mls @ 125 mls/hr IV ONE ONE Stop: 02/24/21 00:24 Last Infusion: 02/24/21 00:30 Dose: 0 mls/hr Documented by: [id number] Admin: 02/23/21 23:16 Dose: 125 mls/hr Documented by: [id number] Ceftriaxone Sodium (Rocephin) 1,000 mg in 50 mls @ 100 mls/hr IV NOW STA Stop: 02/23/21 22:51 Last Infusion: 02/24/21 00:11 Dose: 0 mls/hr Documented by: [id number] Admin: 02/23/21 23:17 Dose: 100 mls/hr Documented by: [id number] Medical Decision Making Differential Diagnosis Differential includes acute coronary syndrome, myocardial infarction, CVA, TIA, anemia, infection, pneumonia, UTI, pyelonephritis, poor nutrition, dehydration, electrolyte disturbance,hypoglycemia. Medical Records Attestation: I reviewed the patient's medical records. Home Medications Current Medication List: was personally reviewed by me Laboratory Data Attestation: I reviewed the patient's lab results. Result diagrams: 02/23/21 23:07 02/23/21 23:07 Lab Results 02/23/21 02/23/21 02/23/21 Range/Units 23:07 23:07 23:07 WBC 25.52 H (4.8-10.8) K/uL RBC 3.99 L (4.7-6.1) M/uL Hgb 12.4 L (14.0-18.0) g/dL Hct 34.7 L (42-52) % MCV 87.0 (80-100) fL MCH 31.1 (25-34) pg MCHC 35.7 (32-36) g/dL RDW Std Deviation 54.3 H (36.4-46.3) fL RDW Coeff of Real 17.0 H (11.5-14.5) % Plt Count 225 (130-400) K/uL MPV 11.0 H (7.4-10.4) fL Immature Gran % (Auto) 0.4 % Neut % (Auto) 36.6 % Lymph % (Auto) 61.5 % [place] % (Auto) 1.4 % Eos % (Auto) 0.1 % Baso % (Auto) 0.0 % Neut # (Auto) 9.32 H (1.4-6.5) K/uL Lymph # (Auto) 15.70 H (1.2-3.4) K/uL [place] # (Auto) 0.37 (0.11-0.59) K/uL Eos # (Auto) 0.02 (0-0.5) K/uL Baso # (Auto) 0.01 (0-0.2) K/uL Immature Gran # (Auto) 0.10 H (0.00-0.02) K/uL Smudge Cells Present Toxic Granulation 1+ Toxic Vacuolation 1+ Ovalocytes 1+ Echinocytes 1+ PT Cancelled INR Cancelled APTT Cancelled PTT Ratio Cancelled Sodium 143 (136-145) mmol/L Chloride 110 H (98-107) mmol/L Carbon Dioxide 27 (21-32) mmol/L Anion Gap 6.0 (3-11) BUN 56 H (7-18) mg/dl Creatinine 1.26 (0.6-1.4) mg/dl Est Cr Clr Drug Dosing Not Reportable Est GFR ( Amer) 59.9 Est GFR (Non-Af Amer) 51.7 BUN/Creatinine Ratio 44.4 H (10-20) Glucose 48 L* (70-99) mg/dl POC Glucose (70-99) mg/dl Calcium 8.9 (8.5-10.1) mg/dl Magnesium 2.7 H (1.8-2.4) mg/dl Total Bilirubin 0.7 (0.2-1) mg/dl AST 42 H (15-37) U/L ALT 47 (12-78) U/L Alkaline Phosphatase 88 (45-117) U/L Troponin I 0.147 H* (0-0.045) ng/ml NT-Pro-B Natriuret Pep 7739 H (0-1800) pg/ml Total Protein 6.1 L (6.4-8.2) gm/dl Albumin 2.2 L (3.4-5.0) gm/dl Globulin 3.9 (2.5-4.0) gm/dl Albumin/Globulin Ratio 0.6 L (0.9-2) Specimen Hemolysis COVID-19 Eval Order SARS-CoV-2 (PCR) (Negative) Influenza Type A (PCR) (Neg) Influenza Type B (PCR) (Neg) RSV (RT-PCR) (Neg) 02/23/21 02/23/21 02/24/21 Range/Units 23:10 23:10 00:16 WBC (4.8-10.8) K/uL RBC (4.7-6.1) M/uL Hgb (14.0-18.0) g/dL Hct (42-52) % MCV (80-100) fL MCH (25-34) pg MCHC (32-36) g/dL RDW Std Deviation (36.4-46.3) fL RDW Coeff of Real (11.5-14.5) % Plt Count (130-400) K/uL MPV (7.4-10.4) fL Immature Gran % (Auto) % Neut % (Auto) % Lymph % (Auto) % [place] % (Auto) % Eos % (Auto) % Baso % (Auto) % Neut # (Auto) (1.4-6.5) K/uL Lymph # (Auto) (1.2-3.4) K/uL [place] # (Auto) (0.11-0.59) K/uL Eos # (Auto) (0-0.5) K/uL Baso # (Auto) (0-0.2) K/uL Immature Gran # (Auto) (0.00-0.02) K/uL Smudge Cells Toxic Granulation Toxic Vacuolation Ovalocytes Echinocytes PT 10.8 INR 1.1 APTT 22.4 PTT Ratio 0.9 Sodium (136-145) mmol/L Chloride (98-107) mmol/L Carbon Dioxide (21-32) mmol/L Anion Gap (3-11) BUN (7-18) mg/dl Creatinine (0.6-1.4) mg/dl Est Cr Clr Drug Dosing Est GFR ( Amer) Est GFR (Non-Af Amer) BUN/Creatinine Ratio (10-20) Glucose (70-99) mg/dl POC Glucose (70-99) mg/dl Calcium (8.5-10.1) mg/dl Magnesium (1.8-2.4) mg/dl Total Bilirubin (0.2-1) mg/dl AST (15-37) U/L ALT (12-78) U/L Alkaline Phosphatase (45-117) U/L Troponin I (0-0.045) ng/ml NT-Pro-B Natriuret Pep (0-1800) pg/ml Total Protein (6.4-8.2) gm/dl Albumin (3.4-5.0) gm/dl Globulin (2.5-4.0) gm/dl Albumin/Globulin Ratio (0.9-2) Specimen Hemolysis COVID-19 Eval Order CovFluRsv at [facility] SARS-CoV-2 (PCR) NEGATIVE (Negative) Influenza Type A (PCR) Negative (Neg) Influenza Type B (PCR) Negative (Neg) RSV (RT-PCR) Negative (Neg) 02/24/21 Range/Units 00:33 WBC (4.8-10.8) K/uL RBC (4.7-6.1) M/uL Hgb (14.0-18.0) g/dL Hct (42-52) % MCV (80-100) fL MCH (25-34) pg MCHC (32-36) g/dL RDW Std Deviation (36.4-46.3) fL RDW Coeff of Real (11.5-14.5) % Plt Count (130-400) K/uL MPV (7.4-10.4) fL Immature Gran % (Auto) % Neut % (Auto) % Lymph % (Auto) % [place] % (Auto) % Eos % (Auto) % Baso % (Auto) % Neut # (Auto) (1.4-6.5) K/uL Lymph # (Auto) (1.2-3.4) K/uL [place] # (Auto) (0.11-0.59) K/uL Eos # (Auto) (0-0.5) K/uL Baso # (Auto) (0-0.2) K/uL Immature Gran # (Auto) (0.00-0.02) K/uL Smudge Cells Toxic Granulation Toxic Vacuolation Ovalocytes Echinocytes PT INR APTT PTT Ratio Sodium (136-145) mmol/L Chloride (98-107) mmol/L Carbon Dioxide (21-32) mmol/L Anion Gap (3-11) BUN (7-18) mg/dl Creatinine (0.6-1.4) mg/dl Est Cr Clr Drug Dosing Est GFR ( Amer) Est GFR (Non-Af Amer) BUN/Creatinine Ratio (10-20) Glucose (70-99) mg/dl POC Glucose 69 L* (70-99) mg/dl Calcium (8.5-10.1) mg/dl Magnesium (1.8-2.4) mg/dl Total Bilirubin (0.2-1) mg/dl AST (15-37) U/L ALT (12-78) U/L Alkaline Phosphatase (45-117) U/L Troponin I (0-0.045) ng/ml NT-Pro-B Natriuret Pep (0-1800) pg/ml Total Protein (6.4-8.2) gm/dl Albumin (3.4-5.0) gm/dl Globulin (2.5-4.0) gm/dl Albumin/Globulin Ratio (0.9-2) Specimen Hemolysis COVID-19 Eval Order SARS-CoV-2 (PCR) (Negative) Influenza Type A (PCR) (Neg) Influenza Type B (PCR) (Neg) RSV (RT-PCR) (Neg) Imaging Data Attestation: I personally reviewed and interpreted this imaging study as follows: My Impression: Right middle lobe pneumonia on chest x-ray per my interpretation ECG Data Attestation: I personally reviewed and interpreted this ECG as follows: MDM Narrative Patient presents with shortness of breath and weakness and light of being recently admitted to [facility] and then signing out AGAINST MEDICAL ADVICE on Tuesday for pneumonia, elevated troponin and abnormal kidney function test. He was advised to come here by his PCP for admission. His exam reveals that he is in no distress. Lung sounds reveal crackles on the right. Chest x- ray shows a wedge-shaped pneumonia in the right middle lobe. The patient's blood pressures a little on the low side on admission. His saturations are 93% on room air. He is currently afebrile. The patient's white blood cell count is 25,000. Hemoglobin is 12.4. BUN is 56. Glucose was 48. He was given some orange juice as well as a meal and his blood sugar improved. Troponin is 0.147. Twelve-lead EKG shows a ventricular paced rhythm at a rate of 68. The patient will require further inpatient evaluation and admission. He was treated with an albuterol treatment as well as IV Zithromax and Rocephin. Covid and flu are negative. Impression & Plan Community acquired pneumonia of right middle lobe of lung, Elevated troponin, Hypoglycemia Discharge Plan Visit Data Chief Complaint: Illness Stated Complaint: SOB, WEAKNESS ED Provider: Ward Downs Discharge Problem: Community acquired pneumonia of right middle lobe of lung, Elevated troponin, Hypoglycemia Patient Disposition: Being Evaluated by Hospitalist Forms Stand Alone Forms: My [facility] Prescriptions Prescriptions: No Action Lantus Solostar U-100 Insulin 100 unit/mL (3 mL) insulin pen 44 unit SQ HS Qty: 15 RF: 11 furosemide 20 mg tablet 20 mg PO DAILY Qty: 90 RF: 3 atorvastatin 40 mg tablet 40 mg PO DAILY Qty: 90 RF: 3 nitroglycerin 0.4 mg tablet, sublingual 0.4 mg SL .COMPLEX RF: 0 cholecalciferol (vitamin D3) 2,000 unit capsule 2,000 units PO DAILY Qty: 90 RF: 0 cyanocobalamin (vitamin B-12) 1,000 mcg tablet 1,000 mcg PO DAILY Qty: 90 RF: 0 metoprolol succinate 25 mg tablet extended release 24 hr 12.5 mg PO BID Qty: 90 RF: 0 ranolazine 500 mg tablet extended release 12 hr 500 mg PO BID Qty: 180 RF: 0 Arnuity Ellipta 100 mcg/actuation blister with device 1 puffs INH DAILY RF: 0 gabapentin 600 mg tablet 600 mg PO .QHS Qty: 90 RF: 3 Entresto 24-26 mg tablet 1 tab PO BID Qty: 60 RF: 2 insulin lispro [Humalog KwikPen Insulin] 100 unit/mL insulin pen See Rx Instructions SQ TID Qty: 15 RF: 11 azithromycin 250 mg tablet 250 mg PO .COMPLEX MDD 2 5 Days Qty: 6 RF: 0 cefuroxime axetil 500 mg tablet 500 mg PO BID 10 Days Qty: 20 RF: 0 prednisone 10 mg tablet 10 mg PO .COMPLEX 10 Days Qty: 30 RF: 0 Portable Oxygen Misc See Rx Instructions .ROUTE .COMPLEX Qty: 1 RF: 0 levothyroxine 50 mcg capsule 50 mcg PO DAILY Qty: 30 RF: 11 ketoconazole 2 % shampoo 1 applic topical .2 x weekly Qty: 120 RF: 2 albuterol sulfate [ProAir HFA] 90 mcg/actuation HFA aerosol inhaler 2 puff INH Q4H PRN (Reason: shortness of breath or wheezing) Qty: 8 RF: 5 levofloxacin 750 mg tablet 750 mg PO UD RF: 0 aspirin [Aspirin Low Dose] 81 mg Tablet,Delayed Release (Dr/Ec) 81 mg PO DAILY RF: 0 Referrals Referrals: Obed Gómez MD [Primary Care Provider] -
[2021-02-23 23:33] LABS: Hematocrit (blood only) 34.7 % (42-52); Hemoglobin 12.4 g/dL (14.0-18.0); Mean Corpuscular Hemoglobin 31.1 pg (25-34); Mean Corpuscular Hgb Conc 35.7 g/dL (32-36); Platelet Count 225 K/uL (130-400); RDW Standard Deviation 54.3 fL (36.4-46.3); Red Blood Count 3.99 M/uL (4.7-6.1); White Blood Count 25.52 K/uL (4.8-10.8)
[2021-02-24 00:13] LABS: Alanine Aminotransferase 47 U/L (12-78); Albumin Globulin Ratio 0.6 (0.9-2); Albumin Level 2.2 gm/dl (3.4-5.0); Alkaline Phosphatase 88 U/L (45-117); Aspartate Aminotransferase 42 U/L (15-37); BUN Creatinine Ratio 44.4 (10-20); Bilirubin,Total 0.7 mg/dl (0.2-1); Blood Urea Nitrogen 56 mg/dl (7-18); Calcium 8.9 mg/dl (8.5-10.1); Carbon Dioxide 27 mmol/L (21-32); Chloride 110 mmol/L (98-107); Est GFR (African American) 59.9; Est GFR (Non-African American) 51.7; Globulin 3.9 gm/dl (2.5-4.0); Glucose 48 mg/dl (70-99); Magnesium 2.7 mg/dl (1.8-2.4); NT Pro B Type Natriuretic Pept 7739 pg/ml (0-1800); Sodium 143 mmol/L (136-145); Total Protein 6.1 gm/dl (6.4-8.2); Troponin I 0.147 ng/ml (0-0.045)
[2021-02-24 00:13] LABS: Influenza A virus by PCR Negative (Neg); Influenza B virus by PCR Negative (Neg); RSV by PCR Negative (Neg); SARS CoV2 RNA(COVID-19) InHosp NEGATIVE (Negative)
[2021-02-24 00:29] LABS: Basophils # (auto) 0.01 K/uL (0-0.2); Echinocytes 1+; Eosinophils # (auto) 0.02 K/uL (0-0.5); Eosinophils % (auto) 0.1 %; Immature Granulocytes % (auto) 0.4 %; Lymphocytes % (auto) 61.5 %; Monocytes # (auto) 0.37 K/uL (0.11-0.59); Monocytes % (auto) 1.4 %; Neutrophils # (auto) 9.32 K/uL (1.4-6.5); Neutrophils % (auto) 36.6 %; Ovalocytes 1+; Smudge Cells Present; Toxic Granulation 1+; Toxic Vacuolation 1+
[2021-02-24 00:45] LABS: INR 1.1 (0.9-1.1); Partial Thromboplastin Ratio 0.9; Partial Thromboplastin Time 22.4 Seconds (21.0-31.0); Prothrombin Time 10.8 Seconds (9.0-12.0)
[2021-02-24 00:59] LABS: Appearance Urine Clear (Clear); Bilirubin Urine Negative (Negative); Blood Urine Negative (Negative); Color Urine Yellow; Glucose Urine UA Negative (Negative); Ketones Urine Negative (Negative); Leukocyte Esterase Urine Negative (Negative); Nitrite Urine Negative (Negative); Protein Urine Negative (Negative); Specific Gravity Urine 1.011 (1.000-1.030); Urobilinogen Urine Negative (Negative)
[2021-02-24 01:06] LABS: Potassium 4.3 mmol/L (3.5-5.1)
[2021-02-24] MEDS ORDERED: ONDANSETRON INJ 2 MG/ML 2 ML VIAL IV PRN (04:21)
[2021-02-24] MEDS ORDERED: NITROGLYCERIN SL 0.4 MG/TAB TAB SL PRN (04:21)
[2021-02-24] MEDS ORDERED: ACETAMINOPHEN 325 MG TAB PO PRN (04:21)
[2021-02-24] MEDS ORDERED: PIPERACILL/TAZOBAC CONSULT ACTIVE PRN (04:21)
[2021-02-24] MEDS ORDERED: PATIENT'S HEIGHT AND/OR WEIGHT NEEDED SCH (04:45)
[2021-02-24] MEDS ORDERED: CARBOHYDRATES FOR HYPOGLYCEMIA PO PRN (05:30)
[2021-02-24] MEDS ORDERED: GLUCOSE 40% GEL 15 GM TUBE PO PRN (05:30)
[2021-02-24] MEDS ORDERED: GLUCAGON FOR INJ 1 MG VIAL SQ PRN (05:30)
[2021-02-24] MEDS ORDERED: DEXTROSE 50% 50 ML SYRINGE IV PRN (05:30)
[2021-02-24] MEDS ORDERED: GLUCOSE 10 TABS/TUBE PO PRN (05:30)
[2021-02-24] MEDS: methylPREDNISolone 40 MG in SYRINGE 0 ML IV SCH ×3 (05:48→20:58)
[2021-02-24] MEDS: LEVOTHYROXINE SODIUM 50 MCG TABLET PO SCH (05:50)
[2021-02-24] MEDS ORDERED: PIPERACILLIN/TAZOBACTAM 3.375 GM in DEXTROSE 5% 100 ML IV ONE (06:00)
--- NOTE | 2021-02-24 06:05 | History & Physical Report ---
Date of Service February 24, 2021 Assessment & Plan (1) Community acquired pneumonia of right middle lobe of lung: Multifocal pneumonia/prominent right upper lobe pneumonia/hypoxia- Recent hospitalization at [facility]. Treated hospital associated nail Zosyn 3.375 mg IV every 8 hours Azithromycin 5 mg IV daily Methylprednisolone 40 mg IV every 8 hours Hold oral azithromycin, cefuroxime axitil and levofloxacin. Duonebs every 4 hours while awake and every 2 hours when necessary. Present on Admission?: Yes (2) Multifocal pneumonia: See above Present on Admission?: Yes (3) Elevated troponin: Elevated troponin/ischemic cardiomyopathy/CAD/hypertension- Continue aspirin, furosemide, metoprolol succinate, ranolazine and Entresto. Present on Admission?: Yes (4) Ischemic cardiomyopathy: See above Present on Admission?: Yes (5) Atherosclerosis of coronary artery: See above Present on Admission?: Yes (6) Diabetic peripheral neuropathy associated with type 2 diabetes mellitus: Continue insulin glargine Placed in Accu-Cheks before meals and at bedtime with NovoLog coverage per scale Present on Admission?: Yes (7) Hyperlipidemia: Continue atorvastatin Present on Admission?: Yes (8) Chronic lymphocytic leukemia: Admission and Anticipated Discharge Date Admission Date: February 24, 2021 History of Present Illness Chief Complaint: The patient presents to the emergency department with worsening shortness of breath, dyspnea on exertion and generalized weakness. Primary Care Provider: Obed Gómez MD The patient is a 85-year-old male with a past medical history including Hodgkin lymphoma, postherpetic neuralgia, memory loss, hypertension, diabetes mellitus with long-term insulin use, CKD, myocardial infarction, lumbar spinal stenosis, CLL, cardiac pacemaker presents, CAD, cardiomyopathy, CHF, diabetic peripheral neuropathy, restless leg syndrome and secondary hyperparathyroidism. He will reportedly was admitted to [facility] last week for several days, but left AGAINST MEDICAL ADVICE 2 days ago. Patient presents to the emergency department at [facility] today with complaint of worsening shortness of breath, dyspnea exertion and weakness, with audible wheezing and rattling with his breathing. He was referred to the emergency department today by Dr. Gómez his PCP. Allergies Allergy/AdvReac Type Severity Reaction Status Date / Time levofloxacin Allergy Unknown UNKNOWN Verified 02/23/21 23:02 REACTION Home Medications Medication Instructions Recorded Confirmed Type nitroglycerin 0.4 mg sublingual 0.4 mg SL .COMPLEX 06/12/19 02/23/21 History tablet cholecalciferol (vitamin D3) 50 2,000 units PO DAILY #90 cap 06/27/19 02/23/21 Rx mcg (2,000 unit) capsule cyanocobalamin (vitamin B-12) 1,000 mcg PO DAILY #90 tab 06/27/19 02/23/21 Rx 1,000 mcg tablet metoprolol succinate 25 mg 12.5 mg PO BID #90 tab 06/27/19 02/23/21 Rx tablet,extended release 24 hr ranolazine 500 mg tablet,extended 500 mg PO BID #180 tab 06/27/19 02/23/21 Rx release,12 hr fluticasone furoate 100 1 puffs INH DAILY 08/21/19 02/23/21 History mcg/actuation blister powder for inhalation levothyroxine 50 mcg capsule 50 mcg PO DAILY #30 cap 02/26/20 02/23/21 Rx insulin glargine 100 unit/mL (3 44 unit SQ HS #15 ml 07/16/20 02/23/21 Rx mL) subcutaneous pen ketoconazole 2 % shampoo 1 applic TOPICAL .2 x weekly #120 09/25/20 02/23/21 Rx ml furosemide 20 mg tablet 20 mg PO DAILY #90 tab 12/18/20 02/23/21 Rx albuterol sulfate 90 mcg/actuation 2 puff INH Q4H PRN #8 g 12/25/20 02/23/21 Rx aerosol inhaler atorvastatin 40 mg tablet 40 mg PO DAILY #90 tab 02/17/21 02/23/21 Rx Portable Oxygen See Rx Instructions .ROUTE 02/23/21 02/23/21 Rx .COMPLEX #1 ea aspirin [Aspirin Low Dose] 81 mg PO DAILY 02/23/21 02/23/21 History azithromycin 250 mg tablet 250 mg PO .COMPLEX 5 Days #6 tab 02/23/21 02/23/21 Rx MDD 2 cefuroxime axetil 500 mg tablet 500 mg PO BID 10 Days #20 tab 02/23/21 02/23/21 Rx gabapentin 600 mg tablet 600 mg PO .QHS #90 tab 02/23/21 02/23/21 Rx insulin lispro 100 unit/mL See Rx Instructions SQ TID #15 ml 02/23/21 02/23/21 Rx subcutaneous pen levofloxacin 750 mg PO UD 02/23/21 02/23/21 History prednisone 10 mg tablet 10 mg PO .COMPLEX 10 Days #30 tab 02/23/21 02/23/21 Rx sacubitril 24 mg-valsartan 26 mg 1 tab PO BID #60 tab 02/23/21 02/23/21 Rx tablet Past Med/Surg History Medical History Acute renal failure CLL (chronic lymphocytic leukemia) Dyspnea on exertion Elevated troponin Hodgkin lymphoma Ischemic cardiomyopathy Lumbar spinal stenosis severe at L4-5 Lymphoma Memory loss Myocardial infarction Neuropathy Pacemaker Postherpetic neuralgia Surgical History History of carpal tunnel surgery of left wrist History of cataract surgery History of colonoscopy Hx of detached retina repair Status post placement of cardiac pacemaker Family History Sister Colon cancer Cancer Unknown No problems noted. Brother Cardiac disorder Cancer Father Cancer Mother Cardiac disorder Diabetes Hypertension Social History Smoking Status: Never smoker Hx Alcohol Use: No Hx Substance Use: No Preferred Language: Maltese Communication Ability: Effective Visual Impairment: Limited Hearing Ability: Normal Core Maker Helper Required: No Beliefs That Will Affect Care: None marital status: Current Living Situation: Spouse current occupational status: retired Other Information That Helps Us Care for You: No Feels Safe at Home: Yes Safety Concerns: Feels Safe At This Time Childhood Exposure to Second-Hand Smoke: No Dental Care, Regularly: Yes Physical Activity Frequency: Daily Seatbelt Use: always Sunscreen Use: No Assistive Devices: Cane and Glasses Review of Systems Review of Systems: The patient denies chest pain, palpitations, lower extremity swelling, sore throat, fevers, chills, sweats, nausea, vomiting, diarrhea , constipation, abdominal pain, pelvic pain, blood in urine or stool, dysuria, urinary frequency or urgency, loss of consciousness, rash, abnormal bruising or bleeding, focal weakness, numbness or tingling in arms or legs, generalized arthralgias or myalgias, back or neck pain, or night sweats. The review of systems is otherwise negative other than for that already noted above, and at least 10 systems have been reviewed. Physical Exam Physical Exam: The patient is awake, alert and oriented 3, normocephalic and atraumatic, lying in bed and in no acute distress. HEENT--PERRL, EOMI, mucous membranes and oropharynx dry. Neck--supple. No JVD. No bruits. Thyroid normal, trachea midline, no adenopathy. Heart--normal S1 and S2. No murmurs, rubs or gallops. Lungs--coarse breath sounds and wheezes throughout. Mild respiratory distress, no accessory muscle use. Abdomen--normal bowel sounds and soft. Nontender. Nondistended. Extremities--no cyanosis or clubbing. No edema. There are good distal pulses b/l. Dermatologic--normal skin turgor, normal color, no abnormal lymph nodes, no ra sh. Neurologic--cranial nerves II through XII grossly intact. Rheumatologic--limited exam due to breathing state Psychiatric--normal affect. Results & Data Results & Data ([facility]) Vital Signs (Past 12 Hours) Vital Signs Temp Pulse Pulse Resp BP BP Pulse Ox 02/24/21 04:21 97.7 F 67 18 136/74 98 02/24/21 04:20 68 02/24/21 04:17 97.7 F 67 18 136/74 98 02/23/21 23:28 63 18 96 02/23/21 21:13 96.8 F L 65 22 98/59 L 93 Laboratory Results Laboratory Results WBC 25.52 K/uL (4.8-10.8) H 02/23/21 23:07 RBC 3.99 M/uL (4.7-6.1) L 02/23/21 23:07 Hgb 12.4 g/dL (14.0-18.0) L 02/23/21 23:07 Hct 34.7 % (42-52) L 02/23/21 23:07 MCV 87.0 fL (80-100) 02/23/21 23:07 MCH 31.1 pg (25-34) 02/23/21 23:07 MCHC 35.7 g/dL (32-36) 02/23/21 23:07 RDW Std Deviation 54.3 fL (36.4-46.3) H 02/23/21 23:07 RDW Coeff of Real 17.0 % (11.5-14.5) H 02/23/21 23:07 Plt Count 225 K/uL (130-400) 02/23/21 23:07 MPV 11.0 fL (7.4-10.4) H 02/23/21 23:07 Immature Gran % (Auto) 0.4 % 02/23/21 23:07 Neut % (Auto) 36.6 % 02/23/21 23:07 Lymph % (Auto) 61.5 % 02/23/21 23:07 [place] % (Auto) 1.4 % 02/23/21 23:07 Eos % (Auto) 0.1 % 02/23/21 23:07 Baso % (Auto) 0.0 % 02/23/21 23:07 Neut # (Auto) 9.32 K/uL (1.4-6.5) H 02/23/21 23:07 Lymph # (Auto) 15.70 K/uL (1.2-3.4) H 02/23/21 23:07 [place] # (Auto) 0.37 K/uL (0.11-0.59) 02/23/21 23:07 Eos # (Auto) 0.02 K/uL (0-0.5) 02/23/21 23:07 Baso # (Auto) 0.01 K/uL (0-0.2) 02/23/21 23:07 Immature Gran # (Auto) 0.10 K/uL (0.00-0.02) H 02/23/21 23:07 Smudge Cells Present 02/23/21 23:07 Toxic Granulation 1+ 02/23/21 23:07 Toxic Vacuolation 1+ 02/23/21 23:07 Ovalocytes 1+ 02/23/21 23:07 Echinocytes 1+ 02/23/21 23:07 PT 10.8 Seconds (9.0-12.0) 02/24/21 00:16 INR 1.1 (0.9-1.1) 02/24/21 00:16 APTT 22.4 Seconds (21.0-31.0) 02/24/21 00:16 PTT Ratio 0.9 02/24/21 00:16 Sodium 143 mmol/L (136-145) 02/23/21 23:07 Potassium 4.3 mmol/L (3.5-5.1) D 02/23/21 23:07 Chloride 110 mmol/L (98-107) H 02/23/21 23:07 Carbon Dioxide 27 mmol/L (21-32) 02/23/21 23:07 Anion Gap 6.0 (3-11) 02/23/21 23:07 BUN 56 mg/dl (7-18) H 02/23/21 23:07 Creatinine 1.26 mg/dl (0.6-1.4) 02/23/21 23:07 Est Cr Clr Drug Dosing Not Reportable 02/23/21 23:07 Est GFR ( Amer) 59.9 02/23/21 23:07 Est GFR (Non-Af Amer) 51.7 02/23/21 23:07 BUN/Creatinine Ratio 44.4 (10-20) H 02/23/21 23:07 Glucose 48 mg/dl (70-99) L* 02/23/21 23:07 POC Glucose 158 mg/dl (70-99) H 02/24/21 04:18 Lactate 2.0 mmol/L (0.4-2.0) 02/24/21 01:07 Calcium 8.9 mg/dl (8.5-10.1) 02/23/21 23:07 Magnesium 2.7 mg/dl (1.8-2.4) H 02/23/21 23:07 Total Bilirubin 0.7 mg/dl (0.2-1) 02/23/21 23:07 AST 42 U/L (15-37) H 02/23/21 23:07 ALT 47 U/L (12-78) 02/23/21 23:07 Alkaline Phosphatase 88 U/L (45-117) 02/23/21 23:07 Troponin I 0.147 ng/ml (0-0.045) H* 02/23/21 23:07 NT-Pro-B Natriuret Pep 7739 pg/ml (0-1800) H 02/23/21 23:07 Total Protein 6.1 gm/dl (6.4-8.2) L 02/23/21 23:07 Albumin 2.2 gm/dl (3.4-5.0) L 02/23/21 23:07 Globulin 3.9 gm/dl (2.5-4.0) 02/23/21 23:07 Albumin/Globulin Ratio 0.6 (0.9-2) L 02/23/21 23:07 Specimen Hemolysis 02/23/21 23:07 Urine Color Yellow 02/23/21 23:00 Urine Appearance Clear (Clear) 02/23/21 23:00 Urine pH 6.0 (4.5-7.5) 02/23/21 23:00 Ur Specific [place] 1.011 (1.000-1.030) 02/23/21 23:00 Urine Protein Negative (Negative) 02/23/21 23:00 Urine Glucose (UA) Negative (Negative) 02/23/21 23:00 Urine Ketones Negative (Negative) 02/23/21 23:00 Urine Blood Negative (Negative) 02/23/21 23:00 Urine Nitrite Negative (Negative) 02/23/21 23:00 Urine Bilirubin Negative (Negative) 02/23/21 23:00 Urine Urobilinogen Negative (Negative) 02/23/21 23:00 Ur Leukocyte Esterase Negative (Negative) 02/23/21 23:00 COVID-19 Eval Order [facility]FluRsv at [facility] 02/23/21 23:10 SARS-CoV-2 (PCR) NEGATIVE (Negative) 02/23/21 23:10 Influenza Type A (PCR) Negative (Neg) 02/23/21 23:10 Influenza Type B (PCR) Negative (Neg) 02/23/21 23:10 RSV (RT-PCR) Negative (Neg) 02/23/21 23:10 Diagnostic Findings [facility] Patient: AMIRA SANCHEZ (Male) : 35 Status: Date: 02/24/21 04:11 Room #: 240 History: RUL INFILTRATE Slices: 530 Priors: Tech: Lavon Anderson @ [phone] Exams: CT CHEST Without Contrast Contrast: Accession Numbers: [id number] Preliminary Findings Only See Final Report For Complete Findings CT CHEST Without Contrast: Comparison 08/29/2019. Moderate patchy right upper lobe consolidation which may be pneumonia. Mild right pleural effusion with underlying basilar consolidation which may be compressive atelectasis. Mild left basilar atelectasis or infiltrate. Small scattered bilateral pulmonary nodules. Pacemaker electrodes and extensive coronary artery atherosclerosis, as before. Mild mediastinal lymphadenopathy which may be reactive. Calcified mediastinal and hilar lymph nodes indicating remote granulomatous infection. Cholelithiasis. Chronic pancreatitis. No acute osseous abnormality. Radiologist: Ronnie Ramirez M.D. Study ready at 04:21 and initial results transmitted at 04:33 Results also transmitted to [address] [place] [address] ([id number]) @ [phone] (Fax) *This report constitutes a preliminary interpretation only. Non-acute findings felt to be unrelated to the clinical presentation may not be discussed in this report. The study will be interpreted and a final report will be generated by the local Radiologist the following shift. To reach the hospital radiology department call [phone]. If a discrepancy is found between the preliminary and final interpretations of this study, please notify us via our Client Portal at [email or web address].You can also fax this report with a description of the discrepancy, or include the final report, to our daytime fax number [phone].If faxing, please indicate the severity of discrepancy using one of the following categories: [ ] 1 - Agree/Informational [ ] 2 - Unlikely to Affect Management [ ] 3 - Possible Eventual Change of Management [ ] 4 - Probable Immediate Change of Management For all other patient related information, please fax us at [phone]. [id number] Code Status & VTE Plan Code Status Full code VTE Prophylaxis Plan VTE Prophylaxis will be ordered: Yes PG Care Time/CCT Total # of Minutes Spent Total Time Spent with Patient: Total time spent is greater than 50% in coordination of care (as documented) at patient's floor/unit and/or counseling patient: Coding Level of Care Code 32460 Initial Inpt Care Lvl 3 Diagnoses Community acquired pneumonia of right middle lobe of lung J18.9 Multifocal pneumonia J18.9 Elevated troponin R77.8 Ischemic cardiomyopathy I25.5 Atherosclerosis of coronary artery I25.10 Diabetic peripheral neuropathy associated with type 2 diabetes mellitus E11.42 Hyperlipidemia E78.5 Chronic lymphocytic leukemia C91.90
[2021-02-24 06:15] LABS: INR 1.1 (0.9-1.1)
[2021-02-24] MEDS: ALBUT/IPRATROP 3MG/0.5MG NEB 3 ML VIAL NEB SCH ×4 (07:11→19:31)
--- NOTE | 2021-02-24 07:54 | XRay Report ---
XR chest 1V portable CLINICAL HISTORY: Dyspnea COMPARISON STUDY: Chest CT August 29, 2019. FINDINGS: A left subclavian ventricular pacer/AICD is in place. Cardiomegaly is unchanged. There is n o pneumothorax. Small right pleural effusion is noted. Moderate right upper lobe consolidation is pre sent. IMPRESSION: 1. Moderate upper lobe consolidation suggestive of pneumonia. Radiographic follow up to ensure resolu tion is recommended. 2. Small right pleural effusion. 3. Cardiomegaly without evidence for pulmonary edema. ACT 112: Negative or not required by law. Electronically signed by: Camron Santos M.D. 02/24/2021 7:53 AM
[2021-02-24] MEDS: METOPROLOL SUCC 25MG EXT REL TAB PO SCH ×2 (08:01→20:58)
[2021-02-24] MEDS: SACUBITRIL-VALSARTAN 24-26 MG TAB PO SCH ×2 (08:02→20:59)
[2021-02-24] MEDS: RANOLAZINE 500 MG ER TAB PO SCH ×2 (08:02→20:58)
[2021-02-24] MEDS: ASPIRIN 81 MG ECTAB PO SCH (08:02)
[2021-02-24] MEDS: CHOLECALCIFEROL 1,000 UNITS 25 MCG TAB PO SCH (08:03)
[2021-02-24] MEDS: FUROSEMIDE 20 MG TAB PO SCH (08:03)
[2021-02-24] MEDS: CYANOCOBALAMIN 500 MCG TABLET (VITAMIN B-12) PO SCH (08:03)
[2021-02-24] MEDS: ATORVASTATIN 40 MG TAB PO SCH (08:04)
--- NOTE | 2021-02-24 08:06 | CT Scan Report ---
CT chest diagnostic wo con CT DOSE: 414.75 mGy.cm CLINICAL HISTORY: 85 years-old Male with RUL infiltrate. Acute shortness of breath with right upper lobe consolidation TECHNIQUE: Multiaxial CT images of the chest were performed without contrast. A dose lowering techni que was utilized adhering to the principles of ALARA. COMPARISON: Chest radiograph 02/23/2021, chest CT 08/29/2019 FINDINGS: Unremarkable thyroid. Left subclavian pacer with battery pack of the left chest. Extensive coronary a rtery calcifications. Mural fibrofatty changes and calcifications of the left ventricular apex and se ptal wall compatible with prior infarct. Heart is upper limits of normal in size. No pericardial effu mirian or thoracic aortic aneurysm. Enlarged mediastinal lymph nodes include paratracheal lymph nodes m easuring up to 1.4 cm and subcarinal lymph nodes measuring up to 1.2 cm. The paratracheal adenopathy has mildly increased in size from comparison where it measured up to 11 mm. Calcified subcarinal and hilar lymph nodes compatible with prior granulomatous disease. Small layering right pleural effusion. Scattered calcified pulmonary granulomata. No pneumothorax. Marsh btle patchy groundglass opacities are noted throughout the left upper lobe and lingula. Groundglass a nd consolidative opacities of the right upper lobe, probably within the posterior segment. Bibasilar atelectasis with mucous plugging. Mild bronchial dilation of the basal lower lobes. Layering secretio ns within the trachea. No pneumoperitoneum. Cholelithiasis. Calcifications of the pancreas compatible with chronic pancreati tis. Unremarkable soft tissues. No acute fracture. IMPRESSION: 1. Groundglass and consolidative right upper lobe opacities with subtle left upper lobe and lingular groundglass densities compatible with multifocal pneumonia. 2. Tracheobronchial secretions with bibasilar mucous plugging and atelectasis. 3. Small right pleural effusion. 4. Likely reactive mediastinal adenopathy. 5. Prior granulomatous disease. 6. Additional findings as above. ACT 112: Negative or not required by law. Electronically signed by: Juan Recinos M.D. 02/24/2021 8:05 AM
[2021-02-24] MEDS ORDERED: AZITHROMYCIN 500 MG in DEXTROSE 5% 250 ML IV SCH (09:00)
[2021-02-24] MEDS: PIPERACILLIN/TAZOBACTAM 3.375 GM in DEXTROSE 5% 100 ML IV SCH ×2 (09:48→17:15)
[2021-02-24] MEDS: INSULIN ASPART 100 UNITS/ML 3 ML PEN SC SCH ×3 (12:04→21:01)
--- NOTE | 2021-02-24 16:18 | Hospitalist Progress Note ---
Date of Service February 24, 2021 Assessment & Plan (1) Community acquired pneumonia of right middle lobe of lung: Patient previously at [facility] for similar complaints Left AMA as he did not feel that the care was adequate for him Patient then presented to PCP (Dr. Gómez) and it was mutually decided that he should be readmitted. Patient chose to present to [facility] Currently patient is on Zosyn 3.375 mg IV every 8 hours and azithromycin 5 mg IV daily Patient was also started on methylprednisolone 40 mg IV every 8 hours Anticipating rapid taper of Solu-Medrol Continue IV antibiotics and obtain procalcitonin with a.m. 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 and has been exposed to agricultural pesticides, dust, agricultural pathogens Continue to monitor on telemetry Repeat chest x-ray in the morning Out of bed to chair as tolerated (2) Elevated troponin: No chest pain or tightness or ST changes on EKG Patient with known CAD with prior PA and PCI with stenting Continue beta-juana, aspirin, and atorvastatin, furosemide Follow on telemetry (3) Hodgkin lymphoma: Patient with CLL in 2001 Patient then developed Hodgkin's lymphoma in 2016 No urgent needs at this time Will review [facility] records and update chart as appropriate (4) Ischemic cardiomyopathy: History of acute PA with stenting in the past No chest pain or tightness Slight elevation of troponin which is probably ischemic demand from pneumonia Continue to monitor on telemetry (5) Dyspnea on exertion: No prior supplemental oxygen use No prior tobacco abuse No prior diagnosed pulmonary disease Most likely secondary to multifocal pneumonia Continue to treat for community-acquired pneumonia Incentive spirometer Out of bed to chair Increase ambulation as tolerated (6) Diabetes mellitus with insulin therapy: Hemoglobin A1c 7.8% on 12/23/2020 Home medications include Lantus 44 units SQ HS, insulin lispro 100 units 3 times daily Continue Lantus and sliding scale insulin at this time Diabetic diet with carb count each meal (7) Chronic kidney disease: BUN 56, creatinine 1.26 Continue gentle hydration orally and follow serial labs Patient reports good urinary output No indication for Villareal catheter at this time (8) Atherosclerosis of coronary artery: Prior history of PA with PCI and stenting Slight elevation in troponin at this time No chest pain or tightness Patient does have hypoxia but this is most likely secondary to multifocal community-acquired pneumonia Continue on telemetry (9) Status post placement of cardiac pacemaker: We will investigate model and serial number in the event the patient needs MRI in the future No indication for interrogation at this time We will review [employer] system (10) Congestive heart failure (CHF): No clinical appreciation of severe CHF at this time Continue with furosemide for diuretics Follow serial labs for electrolyte management Daily standing weights Supportive care (11) Hyperlipidemia: Continue atorvastatin Outpatient management (12) Lumbar spinal stenosis: Stenosis at L4-L5 Chronic prednisone use at home No complaints of back pain at this time Patient able to sit up in bed without difficulty for physical examination (13) CAD (coronary artery disease), [place] coronary artery: History of prior PA with stent placement Continue metoprolol, aspirin, atorvastatin Monitor on telemetry (14) DVT prophylaxis: We will start heparin 5000 units SQ Q12h Ambulate as tolerated No asymmetrical lower extremity edema noted Please refer to history and physical earlier today by Dr. Celeste Admission and Anticipated Discharge Date Admission Date: February 24, 2021 Subjective Attending: Dr. White Patient admitted earlier today. Please refer to Dr. 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 He has no significant cough or sputum production. He has no headache. He denies any chest pain or tightness at this time. He is doing well with the oxygen. He denies any current fever, chills, sweats, rigors. Review of Systems Review of Systems: All systems reviewed & are unremarkable except as noted in Subjective Physical Exam Physical Exam: GENERAL : No acute distress EYES: No icterus, gaze conjugate NOSE: No evidence of epistaxis MOUTH: No lesions or candidiasis NECK: Supple LUNGS: Bibasilar crackles. Diminished breath sounds globally. No appreciation of bronchospasm or rhonchi HEART: Regular, rate controlled ABDOMEN: Soft, NT, ND, BS Present EXTREMITIES: No LE edema, pedal pulses intact NEURO: A&OX3 Results & Data Results & Data ([facility]) Vital Signs (Past 12 Hours) Vital Signs Temp Pulse Pulse Resp BP Pulse Ox 02/24/21 14:54 65 18 96 02/24/21 12:08 37.1 C 88 20 134/70 96 02/24/21 11:16 69 16 97 02/24/21 08:00 36.8 C 69 72 16 133/65 95 02/24/21 07:11 64 18 97 02/24/21 04:21 36.5 C 67 18 136/74 98 02/24/21 04:20 68 Laboratory Results 02/23/21 23:07 02/23/21 23:[address] chest diagnostic wo con CT DOSE: 414.75 mGy.cm CLINICAL HISTORY: 85 years-old Male with RUL infiltrate. Acute shortness of breath with right upper lobe consolidation TECHNIQUE: Multiaxial CT images of the chest were performed without contrast. A dose lowering technique was utilized adhering to the principles of ALARA. COMPARISON: Chest radiograph 02/23/2021, chest CT 08/29/2019 FINDINGS: Unremarkable thyroid. Left subclavian pacer with battery pack of the left chest. Extensive coronary artery calcifications. Mural fibrofatty changes and calcifications of the left ventricular apex and septal wall compatible with prior infarct. Heart is upper limits of normal in size. No pericardial effusion or thoracic aortic aneurysm. Enlarged mediastinal lymph nodes include paratracheal lymph nodes measuring up to 1.4 cm and subcarinal lymph nodes measuring up to 1.2 cm. The paratracheal adenopathy has mildly increased in size from comparison where it measured up to 11 mm. Calcified subcarinal and hilar lymph nodes compatible with prior granulomatous disease. Small layering right pleural effusion. Scattered calcified pulmonary granulomata. No pneumothorax. Subtle patchy groundglass opacities are noted throughout the left upper lobe and lingula. Groundglass and consolidative opacities of the right upper lobe, probably within the posterior segment. Biba silar atelectasis with mucous plugging. Mild bronchial dilation of the basal lower lobes. Layering secretions within the trachea. No pneumoperitoneum. Cholelithiasis. Calcifications of the pancreas compatible with chronic pancreatitis. Unremarkable soft tissues. No acute fracture. IMPRESSION: 1. Groundglass and consolidative right upper lobe opacities with subtle left upper lobe and lingular groundglass densities compatible with multifocal pneumonia. 2. Tracheobronchial secretions with bibasilar mucous plugging and atelectasis. 3. Small right pleural effusion. 4. Likely reactive mediastinal adenopathy. 5. Prior granulomatous disease. 6. Additional findings as above. ACT 112: Negative or not required by law. Electronically signed by: Juan Recinos M.D. 02/24/2021 8:05 AM PG Care Time/CCT Total # of Minutes Spent Total Time Spent with Patient: Total time spent is greater than 50% in coordination of care (as documented) at patient's floor/unit and/or counseling patient: Coding Level of Care Code None Diagnoses Community acquired pneumonia of right middle lobe of lung J18.9 Elevated troponin R77.8 Hodgkin lymphoma C81.90 Ischemic cardiomyopathy I25.5 Dyspnea on exertion R06.00 Diabetes mellitus with insulin therapy E11.9; Z79.4 Chronic kidney disease N18.9 Atherosclerosis of coronary artery I25.10 Status post placement of cardiac pacemaker Z95.0 Congestive heart failure (CHF) I50.9 Hyperlipidemia E78.5 Lumbar spinal stenosis M48.061 CAD (coronary artery disease), [place] coronary artery I25.10 DVT prophylaxis Z29.9 Time Spent (min) 30 Comment Including discussion with [id number] for update
[2021-02-24] MEDS ORDERED: PHARMACY GLYCEMIC MGMT CONSULT PRN (17:04)
[2021-02-24] MEDS ORDERED: INSULIN GLARGINE SOLOSTAR 100 UNITS/ML 3 ML PEN SQ STA (17:06)
[2021-02-24] MEDS ORDERED: INSULIN HUMAN REGULAR PER UNIT 10 UNITS in SYRINGE 9.9 ML IV STA (17:08)
--- NOTE | 2021-02-24 17:24 | Pharmacy Report ---
Pharmacy Glycemic Short Note 2 - Date of Service February 24, 2021 - Glycemic Short BSG Results (Last 24 hours): 02/23/21 02/24/21 02/24/21 23:07 00:33 01:53 Glucose 48 L* POC Glucose 69 L* 148 H 02/24/21 02/24/21 02/24/21 04:18 07:23 11:14 Glucose POC Glucose 158 H 201 H 332 H* 02/24/21 02/24/21 02/24/21 11:15 11:18 16:19 Glucose POC Glucose 397 H* 346 H* 435 H* 02/24/21 16:20 Glucose POC Glucose 398 H* OUTPATIENT ANTIDIABETIC REGIMEN: * Lantus 44 units SC HS * Humalog SC 13 units with breakfast, 11 units with lunch, 21 units with dinner * HbA1c = 7.8% (12/23/2020) ASSESSMENT: * 85 yo M admitted last evening secondary to community acquired pneumonia. Pharmacy was consulted for assistance with inpatient glycemic management. * Patient did not receive basal insulin yesterday prior to admission. * BSGs was low upon admission last evening at 69 mg/dL. * Fasting BSG was elevated at 201 mg/dL this morning. Then, patient was started on SoluMedrol 40 mg IV every 8 hours. * Postprandial hyperglycemia was noted at lunch today secondary to steroids (BSG 346 mg/dL). * He was started on Novolog based on weight/stress of 2 by provider. He received 12 units with lunch. * Pharmacy was consulted this evening when patient's dinner BSG returned at 435 mg/dL with a recheck of 398 mg/dL. * Will tighten Novolog parameters to reflect a weight/stress of 3. Goal range was also tightened to 110-140 mg/dL. * Will give Lantus 50 units x 1 dose now. This is stressed from patient's home dose secondary to steroids. * Will give a IV insulin bolus of 10 units (~0.1 units/kg) for severe hyperglycemia. * Insulin dosing is aggressive at this time and may need reduced in the coming days once basal deficiency is made up for and if steroids would be decreased/discontinued. PLAN FOR INPATIENT GLYCEMIC CONTROL: * Basal insulin * Lantus 50 units SC x 1 * Bolus insulin * NovoLog per scale ACHS or Q6hrs while NPO * Goal Range: Low 110 mg/dL - High 140 mg/dL * Correction Factor: 15 mg/dL/unit * Nutritional / Prandial insulin per carb ratio of 1 unit per 6 grams CHO consumed PLAN FOR DISCHARGE: * To be determined
[2021-02-24] MEDS: GABAPENTIN 600 MG TAB PO SCH (20:59)
[2021-02-24] MEDS ORDERED: INSULIN GLARGINE SOLOSTAR 100 UNITS/ML 3 ML PEN SQ SCH (21:00)
[2021-02-24] MEDS: AZITHROMYCIN 500 MG in DEXTROSE 5% 250 ML IV SCH (21:39)
[2021-02-25] MEDS: PIPERACILLIN/TAZOBACTAM 3.375 GM in DEXTROSE 5% 100 ML IV SCH ×3 (01:58→17:13)
[2021-02-25] MEDS: methylPREDNISolone 40 MG in SYRINGE 0 ML IV SCH ×3 (06:04→20:11)
[2021-02-25] MEDS: LEVOTHYROXINE SODIUM 50 MCG TABLET PO SCH (06:05)
--- NOTE | 2021-02-25 06:17 | Electrocardiogram Report ---
Test Reason : Blood Pressure : / mmHG Vent. Rate : 068 BPM Atrial Rate : 066 BPM P-R Int : 000 ms QRS Dur : 158 ms QT Int : 490 ms P-R-T Axes : 015 206 -08 degrees QTc Int : 521 ms Ventricular-paced rhythm Biventricular pacemaker detected Abnormal ECG When compared with ECG of 13-SEP-2011 18:32, Ventricular pacing is now present Confirmed by Tom Gleason ([id number]) on 02/25/2021 6:17:29 AM Referred By: REFERRED SELF Confirmed By:Tom Gleason
--- NOTE | 2021-02-25 06:23 | Electrocardiogram Report ---
Test Reason : Blood Pressure : / mmHG Vent. Rate : 063 BPM Atrial Rate : 063 BPM P-R Int : 164 ms QRS Dur : 162 ms QT Int : 498 ms P-R-T Axes : 015 201 -05 degrees QTc Int : 509 ms Atrial-sensed ventricular-paced rhythm Biventricular pacemaker detected Abnormal ECG When compared with ECG of 24-FEB-2021 00:52, Vent. rate has decreased BY 5 BPM Confirmed by Tom Gleason ([id number]) on 02/25/2021 6:23:00 AM Referred By: REFERRED SELF Confirmed By:Tom Gleason
[2021-02-25] MEDS: ALBUT/IPRATROP 3MG/0.5MG NEB 3 ML VIAL NEB SCH (07:03)
[2021-02-25 07:10] LABS: Hematocrit (blood only) 31.9 % (42-52); Mean Corpuscular Hemoglobin 30.4 pg (25-34); Mean Corpuscular Hgb Conc 34.5 g/dL (32-36); Mean Corpuscular Volume 88.1 fL (80-100); Mean Platelet Volume 10.7 fL (7.4-10.4); Platelet Count 227 K/uL (130-400); RDW Coefficient of Variation 17.1 % (11.5-14.5); RDW Standard Deviation 55.6 fL (36.4-46.3); Red Blood Count 3.62 M/uL (4.7-6.1); White Blood Count 29.42 K/uL (4.8-10.8)
[2021-02-25] MEDS ORDERED: ALBUT/IPRATROP 3MG/0.5MG NEB 3 ML VIAL NEB PRN (07:13)
[2021-02-25 07:28] LABS: INR 1.1 (0.9-1.1); Partial Thromboplastin Ratio 0.9; Partial Thromboplastin Time 23.1 Seconds (21.0-31.0)
[2021-02-25 07:45] LABS: Albumin Level 1.9 gm/dl (3.4-5.0); Calcium 8.5 mg/dl (8.5-10.1); Creatinine Clr Calc Pharmacy 47.6 ml/min; Est GFR (African American) 61.1; Est GFR (Non-African American) 52.7; Magnesium 2.3 mg/dl (1.8-2.4); Potassium 4.5 mmol/L (3.5-5.1)
[2021-02-25 07:48] LABS: Albumin Globulin Ratio 0.5 (0.9-2); Bilirubin,Total 0.7 mg/dl (0.2-1); Globulin 3.5 gm/dl (2.5-4.0); Total Protein 5.4 gm/dl (6.4-8.2)
[2021-02-25] MEDS: INSULIN ASPART 100 UNITS/ML 3 ML PEN SC SCH ×4 (08:15→20:12)
[2021-02-25] MEDS: ASPIRIN 81 MG ECTAB PO SCH (08:16)
[2021-02-25 08:17] LABS: Basophils # (auto) 0.02 K/uL (0-0.2); Basophils % (auto) 0.1 %; Immature Granulocytes # (auto) 0.13 K/uL (0.00-0.02); Immature Granulocytes % (auto) 0.4 %; Lymphocytes # (auto) 15.42 K/uL (1.2-3.4); Lymphocytes % (auto) 52.4 %; Monocytes # (auto) 0.44 K/uL (0.11-0.59); Monocytes % (auto) 1.5 %; Neutrophils # (auto) 13.41 K/uL (1.4-6.5); Neutrophils % (auto) 45.6 %; Smudge Cells Present; Toxic Granulation 1+
[2021-02-25] MEDS: METOPROLOL SUCC 25MG EXT REL TAB PO SCH ×2 (08:17→20:13)
[2021-02-25] MEDS: FUROSEMIDE 20 MG TAB PO SCH (08:17)
[2021-02-25] MEDS: ATORVASTATIN 40 MG TAB PO SCH (08:17)
[2021-02-25] MEDS: SACUBITRIL-VALSARTAN 24-26 MG TAB PO SCH ×2 (08:17→20:12)
[2021-02-25] MEDS: CYANOCOBALAMIN 500 MCG TABLET (VITAMIN B-12) PO SCH (08:18)
[2021-02-25] MEDS: RANOLAZINE 500 MG ER TAB PO SCH ×2 (08:18→20:13)
[2021-02-25] MEDS: CHOLECALCIFEROL 1,000 UNITS 25 MCG TAB PO SCH (08:19)
--- NOTE | 2021-02-25 08:22 | XRay Report ---
XR chest 1V portable HISTORY: 85 years-old Male Pneumonia acute shortness of breath with pneumonia COMPARISON: Chest CT 02/24/2021, chest radiograph 02/23/2021 TECHNIQUE: Portable AP view of the chest FINDINGS: Cardiac silhouette is enlarged. Left subclavian pacer/AICD. No pneumothorax or overt pulmonary edema. Small right pleural effusion. Airspace opacities of the right upper lobe are unchanged. Degenerative changes of the shoulders and spine. IMPRESSION: 1. Unchanged right upper lobe airspace opacities suggestive of pneumonia. 2. Small right pleural effusion. ACT 112: Negative or not required by law. The above report was generated using voice recognition software. It may contain grammatical, syntax o r spelling errors. Electronically signed by: Juan Recinos M.D. 02/25/2021 8:20 AM
--- NOTE | 2021-02-25 08:42 | XCELERA ---
[id number]
[2021-02-25] MEDS ORDERED: INSULIN GLARGINE SOLOSTAR 100 UNITS/ML 3 ML PEN SQ SCH ×2 (09:00→18:00)
[2021-02-25] MEDS: GABAPENTIN 600 MG TAB PO SCH (20:13)
[2021-02-25] MEDS: AZITHROMYCIN 500 MG in DEXTROSE 5% 250 ML IV SCH (21:25)
[2021-02-25] MEDS ORDERED: MELATONIN 3 MG TAB PO PRN (21:42)
--- NOTE | 2021-02-25 22:32 | Hospitalist Progress Note ---
Date of Service February 25, 2021 Assessment & Plan (1) Community acquired pneumonia of right middle lobe of lung: Patient previously at [facility] for similar complaints Left AMA as he did not feel that the care was adequate for him Patient then presented to PCP (Dr. Gómez) and it was mutually decided that he should be readmitted. Patient chose to present to [facility] Currently patient is on day #2 Zosyn 3.375 mg IV every 8 hours and azithromycin 5 mg IV daily Patient was also started on methylprednisolone 40 mg IV every 8 hours Change Solu-Medrol to prednisone Procalcitonin elevated Continue supplemental oxygen to maintain SaO2 greater than 90%. 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, agricultural pathogens Continue to monitor on telemetry Out of bed to chair as tolerated Ambulate in hallways as tolerated (2) Elevated troponin: No chest pain or tightness or ST changes on EKG Patient with known CAD with prior PR and PCI with stenting Continue beta-juana, aspirin, and atorvastatin, furosemide Follow on telemetry (3) Hodgkin lymphoma: Patient with CLL in 2001 Patient then developed Hodgkin's lymphoma in 2016 No urgent needs at this time Will review [facility] records and update chart as appropriate (4) Ischemic cardiomyopathy: History of acute PR with stenting in the past No chest pain or tightness Slight elevation of troponin which is probably ischemic demand from pneumonia Continue to monitor on telemetry (5) Dyspnea on exertion: No prior supplemental oxygen use No prior tobacco abuse No prior diagnosed pulmonary disease Most likely secondary to multifocal pneumonia Continue to treat for community-acquired pneumonia Incentive spirometer Out of bed to chair Increase ambulation as tolerated (6) Diabetes mellitus with insulin therapy: Hemoglobin A1c 7.8% on 12/23/2020 Home medications include Lantus 44 units SQ HS, insulin lispro 100 units 3 times daily Continue Lantus and sliding scale insulin at this time Diabetic diet with carb count each meal (7) Chronic kidney disease: BUN 56, creatinine 1.26 on admission and virtually unchanged today Continue gentle hydration orally and follow serial labs Patient reports good urinary output No indication for Villareal catheter at this time (8) Atherosclerosis of coronary artery: Prior history of PR with PCI and stenting Slight elevation in troponin at this time No chest pain or tightness Hypoxia is improving. This is most likely secondary to multifocal community- acquired pneumonia Continue on telemetry (9) Status post placement of cardiac pacemaker: We will investigate model and serial number in the event the patient needs MRI in the future No indication for interrogation at this time We will review [employer] system (10) Congestive heart failure (CHF): No clinical appreciation of severe CHF at this time Continue with furosemide for diuretics Follow serial labs for electrolyte management Daily standing weights Supportive care (11) Hyperlipidemia: Continue atorvastatin Outpatient management (12) Lumbar spinal stenosis: Stenosis at L4-L5 Chronic prednisone use at home No complaints of back pain at this time Patient able to sit up in bed without difficulty for physical examination (13) CAD (coronary artery disease), [place] coronary artery: History of prior PR with stent placement Continue metoprolol, aspirin, atorvastatin Monitor on telemetry (14) DVT prophylaxis: We will start heparin 5000 units SQ Q12h Ambulate as tolerated No asymmetrical lower extremity edema noted Please refer to history and physical earlier today by Dr. Celeste Admission and Anticipated Discharge Date Admission Date: February 24, 2021 Subjective Attending: Dr. White Patient states that he is feeling better today. He is doing well without any oxygen. He has no fever or chills. His cough is improved. He has no chest pain or tightness. He denies nausea or vomiting. Review of Systems Review of Systems: All systems reviewed & are unremarkable except as noted in Subjective Physical Exam Physical Exam: GENERAL : No acute distress EYES: No icterus, gaze conjugate NOSE: No evidence of epistaxis MOUTH: No lesions or candidiasis NECK: Supple LUNGS: Bibasilar crackles. There are a few scattered wheezes in the anterior upper heredia. No rhonchi. No cough with deep inspiration. HEART: Regular, rate controlled ABDOMEN: Soft, NT, ND, BS Present EXTREMITIES: No LE edema, pedal pulses intact NEURO: A&OX3 Results & Data Results & Data ([facility]) Vital Signs (Past 12 Hours) Vital Signs Temp Pulse Pulse Resp BP Pulse Ox 02/25/21 19:25 36.5 C 64 18 112/69 94 02/25/21 15:56 66 02/25/21 15:33 36.4 C L 68 20 111/65 94 02/25/21 11:35 36.4 C L 64 17 98/63 L 93 Laboratory Results 02/25/21 06:28 02/25/21 06:28 Diagnostic Findings XR chest 1V portable HISTORY: 85 years-old Male Pneumonia acute shortness of breath with pneumonia COMPARISON: Chest CT 02/24/2021, chest radiograph 02/23/2021 TECHNIQUE: Portable AP view of the chest FINDINGS: Cardiac silhouette is enlarged. Left subclavian pacer/AICD. No pneumothorax or overt pulmonary edema. Small right pleural effusion. Airspace opacities of the right upper lobe are unchanged. Degenerative changes of the shoulders and spine. IMPRESSION: 1. Unchanged right upper lobe airspace opacities suggestive of pneumonia. 2. Small right pleural effusion. ACT 112: Negative or not required by law. The above report was generated using voice recognition software. It may contain grammatical, syntax or spelling errors. Electronically signed by: Juan Recinos M.D. 02/25/2021 8:20 AM PG Care Time/CCT Total # of Minutes Spent Total Time Spent with Patient: Total time spent is greater than 50% in coordination of care (as documented) at patient's floor/unit and/or counseling patient: Coding Level of Care Code 72537 Subseq Hosp Care Lvl 2 Diagnoses Community acquired pneumonia of right middle lobe of lung J18.9 Elevated troponin R77.8 Hodgkin lymphoma C81.90 Ischemic cardiomyopathy I25.5 Dyspnea on exertion R06.00 Diabetes mellitus with insulin therapy E11.9; Z79.4 Chronic kidney disease N18.9 Atherosclerosis of coronary artery I25.10 Status post placement of cardiac pacemaker Z95.0 Congestive heart failure (CHF) I50.9 Hyperlipidemia E78.5 Lumbar spinal stenosis M48.061 CAD (coronary artery disease), [place] coronary artery I25.10 DVT prophylaxis Z29.9
[2021-02-26] MEDS: PIPERACILLIN/TAZOBACTAM 3.375 GM in DEXTROSE 5% 100 ML IV SCH ×2 (02:15→10:47)
[2021-02-26] MEDS: LEVOTHYROXINE SODIUM 50 MCG TABLET PO SCH (05:25)
[2021-02-26] MEDS: methylPREDNISolone 40 MG in SYRINGE 0 ML IV SCH (05:26)
--- NOTE | 2021-02-26 05:59 | Electrocardiogram Report ---
Test Reason : Blood Pressure : / mmHG Vent. Rate : 064 BPM Atrial Rate : 064 BPM P-R Int : 184 ms QRS Dur : 164 ms QT Int : 512 ms P-R-T Axes : 008 215 -15 degrees QTc Int : 528 ms AV dual-paced rhythm Biventricular pacemaker detected Abnormal ECG When compared with ECG of 24-FEB-2021 05:10, No significant change was found Confirmed by Tom Gleason ([id number]) on 02/26/2021 5:59:10 AM Referred By: REFERRED SELF Confirmed By:Tom Gleason
[2021-02-26 06:53] LABS: Hematocrit (blood only) 32.1 % (42-52); Hemoglobin 11.1 g/dL (14.0-18.0); Mean Corpuscular Hemoglobin 30.6 pg (25-34); Mean Corpuscular Hgb Conc 34.6 g/dL (32-36); Mean Corpuscular Volume 88.4 fL (80-100); Mean Platelet Volume 10.9 fL (7.4-10.4); Platelet Count 238 K/uL (130-400); RDW Standard Deviation 54.7 fL (36.4-46.3); Red Blood Count 3.63 M/uL (4.7-6.1); White Blood Count 32.85 K/uL (4.8-10.8)
[2021-02-26 07:08] LABS: Albumin Level 1.9 gm/dl (3.4-5.0); BUN Creatinine Ratio 36.7 (10-20); Calcium 8.2 mg/dl (8.5-10.1); Est GFR (African American) 56.6; Est GFR (Non-African American) 48.8; Magnesium 2.3 mg/dl (1.8-2.4); Potassium 4.1 mmol/L (3.5-5.1)
[2021-02-26 07:11] LABS: Albumin Globulin Ratio 0.6 (0.9-2); Bilirubin,Total 0.7 mg/dl (0.2-1); Globulin 2.9 gm/dl (2.5-4.0); Total Protein 4.8 gm/dl (6.4-8.2)
[2021-02-26 07:22] LABS: INR 1.1 (0.9-1.1); Partial Thromboplastin Ratio 0.9; Prothrombin Time 11.5 Seconds (9.0-12.0)
[2021-02-26] MEDS: INSULIN ASPART 100 UNITS/ML 3 ML PEN SC SCH ×3 (08:24→17:19)
[2021-02-26] MEDS: CHOLECALCIFEROL 1,000 UNITS 25 MCG TAB PO SCH (08:26)
[2021-02-26] MEDS: RANOLAZINE 500 MG ER TAB PO SCH (08:26)
[2021-02-26] MEDS: ATORVASTATIN 40 MG TAB PO SCH (08:26)
[2021-02-26] MEDS: CYANOCOBALAMIN 500 MCG TABLET (VITAMIN B-12) PO SCH (08:26)
[2021-02-26] MEDS: SACUBITRIL-VALSARTAN 24-26 MG TAB PO SCH (08:27)
[2021-02-26] MEDS: METOPROLOL SUCC 25MG EXT REL TAB PO SCH (08:27)
[2021-02-26] MEDS: ASPIRIN 81 MG ECTAB PO SCH (08:27)
[2021-02-26] MEDS: FUROSEMIDE 20 MG TAB PO SCH (08:27)
[2021-02-26 09:00] LABS: ALC (manual) 19.71 K/uL (1.2-3.4); ANC (manual) 11.17 K/uL (1.4-6.5); Lymphocytes # (manual) 19.71 K/uL (1.2-3.4); Monocytes # (manual) 1.97 K/uL (0.11-0.59); Neutrophils # (manual) 11.17 K/uL (1.4-6.5); Smudge Cells Present
--- NOTE | 2021-02-26 15:11 | Pharmacy Report ---
Pharmacy Glycemic Short Note 2 - Date of Service February 26, 2021 - Glycemic Short BSG Results (Last 24 hours): 02/25/21 02/25/21 02/26/21 16:15 20:06 06:14 Glucose 94 POC Glucose 125 H 120 H 02/26/21 02/26/21 07:09 11:08 Glucose POC Glucose 91 128 H OUTPATIENT ANTIDIABETIC REGIMEN: * Lantus 44 units SC HS * Humalog SC 13 units with breakfast, 11 units with lunch, 21 units with dinner * HbA1c = 7.8% (12/23/2020) ASSESSMENT: 02/26: * Patient received total of 104 units of insulin yesterday, of which 60 units were basal insulin * Fasting BSG 91 mg/dL - received one dose of solm and then dc'ed, changed to prednisone to start tomorrow * Plan to resume home Lantus dose for tonight, may loosen CF/CR PLAN FOR INPATIENT GLYCEMIC CONTROL: * Basal insulin * Lantus 45 units HS * Bolus insulin * NovoLog per scale ACHS or Q6hrs while NPO * Goal Range: Low 110 mg/dL - High 140 mg/dL * Correction Factor: 15 mg/dL/unit * Nutritional / Prandial insulin per carb ratio of 1 unit per 5 grams CHO consumed PLAN FOR DISCHARGE: * To be determined
--- NOTE | 2021-02-26 17:07 | Discharge Summary ---
Date of Service February 26, 2021 Admission HPI Per Admitting Provider The patient is a 85-year-old male with a past medical history including Hodgkin lymphoma, postherpetic neuralgia, memory loss, hypertension, diabetes mellitus with long-term insulin use, CKD, myocardial infarction, lumbar spinal stenosis, CLL, cardiac pacemaker presents, CAD, cardiomyopathy, CHF, diabetic peripheral neuropathy, restless leg syndrome and secondary hyperparathyroidism. He will reportedly was admitted to [facility] last week for several days, but left AGAINST MEDICAL ADVICE 2 days ago. Patient presents to the emergency department at [facility] today with complaint of worsening shortness of breath, dyspnea exertion and weakness, with audible wheezing and rattling with his breathing. He was referred to the emergency department today by Dr. Gómez his PCP. Admission Exam Per Admitting Provider The patient is awake, alert and oriented 3, normocephalic and atraumatic, lying in bed and in no acute distress. HEENT--PERRL, EOMI, mucous membranes and oropharynx dry. Neck--supple. No JVD. No bruits. Thyroid normal, trachea midline, no adenopathy. Heart--normal S1 and S2. No murmurs, rubs or gallops. Lungs--coarse breath sounds and wheezes throughout. Mild respiratory distress, no accessory muscle use. Abdomen--normal bowel sounds and soft. Nontender. Nondistended. Extremities--no cyanosis or clubbing. No edema. There are good distal pulses b/l. Dermatologic--normal skin turgor, normal color, no abnormal lymph nodes, no rash. Neurologic--cranial nerves II through XII grossly intact. Rheumatologic--limited exam due to breathing state Psychiatric--normal affect. Principal Diagnosis Community-acquired pneumonia Discharge Exam GENERAL : No acute distress EYES: No icterus, gaze conjugate NOSE: No evidence of epistaxis MOUTH: No lesions or candidiasis NECK: Supple LUNGS: CTA B/L, no wheezes, rales or rhonchi HEART: Regular, rate controlled ABDOMEN: Soft, NT, ND, BS Present EXTREMITIES: No LE edema, pedal pulses intact NEURO: A&OX3 Discharge Data Allergies Allergy/AdvReac Type Severity Reaction Status Date / Time levofloxacin Allergy Unknown UNKNOWN Verified 03/02/21 09:41 REACTION Consultations 02/24/21 00:57 ED Decision to Admit Stat Ordered Studies 02/24/21 01:47 CT chest diagnostic wo con Urgent Hospital Course (1) Community acquired pneumonia of right middle lobe of lung: Patient previously at [facility] for similar complaints Left AMA as he did not feel that the care was adequate for him Patient then presented to PCP (Dr. Gómez) and it was mutually decided that he should be readmitted. Patient chose to present to [facility] Currently patient is on day #3 Zosyn 3.375 mg IV every 8 hours and azithromycin 5 mg IV daily Patient was also started on methylprednisolone 40 mg IV every 8 hours Change Solu-Medrol to prednisone and titrate on discharge Procalcitonin elevated at 1.31 ng/mL Patient successfully titrated to room air Discharge home. Drug of choice for discharge will be levofloxacin. However, patient had adverse reaction in the past Patient was just prescribed cefuroxime and azithromycin by Dr. Gómez prior to admission. Advised patient to take this as directed until completed If any further shortness of breath or recurrent symptoms, advised patient to see Dr. Gómez or go to the nearest emergency department (2) Elevated troponin: No chest pain or tightness or ST changes on EKG Patient with known CAD with prior MN and PCI with stenting Continue beta-junaa, aspirin, and atorvastatin, furosemide Followed on telemetry while inpatient with no arrhythmias noted (3) Hodgkin lymphoma: Patient with CLL in 2000 Patient then developed Hodgkin's lymphoma in 2016 No urgent needs at this time Outpatient management (4) Ischemic cardiomyopathy: History of acute MN with stenting in the past No chest pain or tightness Slight elevation of troponin which is probably ischemic demand from pneumonia (5) Dyspnea on exertion: No prior supplemental oxygen use No prior tobacco abuse No prior diagnosed pulmonary disease Most likely secondary to multifocal pneumonia Continue to treat for community-acquired pneumonia Incentive spirometer on discharge Increase ambulation as tolerated at home (6) Diabetes mellitus with insulin therapy: Hemoglobin A1c 7.8% on 12/23/2020 Home medications include Lantus 44 units SQ HS, insulin lispro 100 units 3 times daily Continue Lantus and sliding scale insulin on discharge Diabetic diet with carb count each meal (7) Chronic kidney disease: Continue gentle hydration orally and follow serial labs as an outpatient Patient reports good urinary output (8) Atherosclerosis of coronary artery: Prior history of MN with PCI and stenting Slight elevation in troponin at this time No chest pain or tightness Hypoxia is resolved. This is most likely secondary to multifocal community- acquired pneumonia (9) Status post placement of cardiac pacemaker: We will investigate model and serial number in the event the patient needs MRI in the future No indication for interrogation at this time We will review [employer] system (10) Congestive heart failure (CHF): No clinical appreciation of severe CHF at this time Continue with furosemide for diuretics Follow serial labs for electrolyte management Daily standing weights Supportive care (11) Hyperlipidemia: Continue atorvastatin Outpatient management (12) Lumbar spinal stenosis: Stenosis at L4-L5 Chronic prednisone use at home No complaints of back pain at this time Patient able to sit up in bed without difficulty for physical examination (13) CAD (coronary artery disease), [place] coronary artery: History of prior MN with stent placement Continue metoprolol, aspirin, atorvastatin Monitor on telemetry Total Time Total Time Spent Total Time Spent (In Minutes): 35 Total Time Includes: Examination of the Patient, Discharge Planning, Medication Reconciliation, Communication With Other Providers and Other (Updated family) Discharge Plan Discharge Items Patient Disposition: Home - Self-Care Reason For Visit: PNEUMONIA, ELEVATED TROPONIN Discharge Diagnosis: Community Acquired Bacterial Pneumonia Activity: Resume your previous activity Lifting: Gradually increase as tolerated Bathing: No limitations Sexual Activity: When tolerated Exercise/Sports: Gradually increase as tolerated Driving/Machine Use: Resume 3 days after discharge Non-emergency contact: Primary Care Provider Call non-emergency contact if: you have any medication questions, your symptoms worsen and you have a fever Follow-up/Referrals: Obed Gómez MD [Primary Care Provider] - Diet: Heart Healthy and Low Sodium (2gm) Addtl Attending Provider Instructions: You were admitted with shortness of breath and found to have pneumonia by x-ray and clinical examination. You also had an elevated procalcitonin which is an indicator that bacteria was present. You received 3 days of IV Zosyn as well as IV steroids. You are being discharged on another 7 days of Levofloxacin (antibiotic), and a steroid taper. If you have further shortness of breath, you should go to Dr. Gómez's office or go to the nearest emergency department. You have not had fever for 48 hours. You do have a high white cell count but this could be from the high dose of steroids that you have been given. For pneumonia continue cefuroxime 500 mg 2 times daily for 10 days plus azithromycin 250 mg, 2 pills today and 1 pill daily for 4 more days as prescribed by Dr. Gómez. Take these medications with food. For the prednisone take 5 pills tomorrow, 4 pills the next day, 3 pills the next day, 2 pills the next day, 1 pill the next day then stop. You should take this in the morning with food as well. Pending Studies at Discharge: No Stand-Alone Forms: My [facility] Medications and DC Order Prescriptions: Continued Lantus Solostar U-100 Insulin 100 unit/mL (3 mL) insulin pen 44 unit SQ HS Qty: 15 RF: 11 furosemide 20 mg tablet 20 mg PO DAILY Qty: 90 RF: 3 atorvastatin 40 mg tablet 40 mg PO DAILY Qty: 90 RF: 3 nitroglycerin 0.4 mg tablet, sublingual 0.4 mg SL .COMPLEX RF: 0 cholecalciferol (vitamin D3) 2,000 unit capsule 2,000 units PO DAILY Qty: 90 RF: 0 cyanocobalamin (vitamin B-12) 1,000 mcg tablet 1,000 mcg PO DAILY Qty: 90 RF: 0 metoprolol succinate 25 mg tablet extended release 24 hr 12.5 mg PO BID Qty: 90 RF: 0 ranolazine 500 mg tablet extended release 12 hr 500 mg PO BID Qty: 180 RF: 0 Arnuity Ellipta 100 mcg/actuation blister with device 1 puffs INH DAILY RF: 0 gabapentin 600 mg tablet 600 mg PO .QHS Qty: 90 RF: 3 Entresto 24-26 mg tablet 1 tab PO BID Qty: 60 RF: 2 insulin lispro [Humalog KwikPen Insulin] 100 unit/mL insulin pen See Rx Instructions SQ TID Qty: 15 RF: 11 azithromycin 250 mg tablet 250 mg PO .COMPLEX MDD 2 5 Days Qty: 6 RF: 0 cefuroxime axetil 500 mg tablet 500 mg PO BID 10 Days Qty: 20 RF: 0 prednisone 10 mg tablet 10 mg PO .COMPLEX 10 Days Qty: 30 RF: 0 Portable Oxygen Misc See Rx Instructions .ROUTE .COMPLEX Qty: 1 RF: 0 levothyroxine 50 mcg capsule 50 mcg PO DAILY Qty: 30 RF: 11 ketoconazole 2 % shampoo 1 applic topical .2 x weekly Qty: 120 RF: 2 albuterol sulfate [ProAir HFA] 90 mcg/actuation HFA aerosol inhaler 2 puff INH Q4H PRN (Reason: shortness of breath or wheezing) Qty: 8 RF: 5 aspirin [Aspirin Low Dose] 81 mg Tablet,Delayed Release (Dr/Ec) 81 mg PO DAILY RF: 0 Discontinued levofloxacin 750 mg tablet 750 mg PO UD RF: 0 Discharge Orders: Discharge Order (Routine); Ordered 02/26/21 Ordered By: Obed Toure Admission Data Admit Date/Time: 02/24/21 01:46 Attending Provider: Nish White Admit Provider: Genaro Hernandez Primary Care Provider: Obed Gómez Other Providers: Genaro Hernandez Other Interventions: Discharge Summary Assessment (RN) Last Done: 02/26/21 17:24 Supervising Physician Co-Signing Physician Notes Patient seen and examined on the day of discharge. I agree with the discharge summary by Obed VU. I have reviewed the chart including labs, imaging and plans for discharge. patient breathing much better, coughing up far less sputum than initially, no fever, vitals stable, eating and drinking well he feels ready for discharge to home - Community acquired pneumonia: responded well to three days of Zosyn and Zithromax WBC normal, no fever, breathing well on room air discharge home on Cefuroxime and Zithromax follow up closely with Dr. Gómez Coding Level of Care Code D/C Day Management >30 mins Diagnoses Community acquired pneumonia of right middle lobe of lung J18.9 Elevated troponin R77.8 Hodgkin lymphoma C81.90 Ischemic cardiomyopathy I25.5 Dyspnea on exertion R06.00 Diabetes mellitus with insulin therapy E11.9; Z79.4 Chronic kidney disease N18.9 Atherosclerosis of coronary artery I25.10 Status post placement of cardiac pacemaker Z95.0 Congestive heart failure (CHF) I50.9 Hyperlipidemia E78.5 Lumbar spinal stenosis M48.061 CAD (coronary artery disease), [place] coronary artery I25.10 Time Spent (min) 35
[2021-02-26] MEDS ORDERED: INSULIN GLARGINE SOLOSTAR 100 UNITS/ML 3 ML PEN SQ SCH (21:00)
--- NOTE | 2021-02-27 06:20 | Electrocardiogram Report ---
Test Reason : Blood Pressure : / mmHG Vent. Rate : 064 BPM Atrial Rate : 064 BPM P-R Int : 184 ms QRS Dur : 156 ms QT Int : 514 ms P-R-T Axes : 017 212 -08 degrees QTc Int : 530 ms AV dual-paced rhythm Biventricular pacemaker detected Abnormal ECG When compared with ECG of 25-FEB-2021 03:43, No significant change was found Confirmed by Tom Gleason ([id number]) on 02/27/2021 6:19:44 AM Referred By: REFERRED SELF Confirmed By:Tom Gleason
[2021-02-27] MEDS ORDERED: predniSONE 10 MG TABLET PO SCH (09:00)
== END 2021-02-26 17:41 | disposition home or self-care (01) | DRG 194 ==
LOC: ED 21:08 → SUATTDRO 02-24 01:46 → 2S 02-24 01:46

== ENCOUNTER 2022-06-13 09:10 | Observation (INO) ==
[2022-06-13] MEDS ORDERED: CEFEPIME 2,000 MG/20 ML VIAL IV STA (09:38)
[2022-06-13] MEDS ORDERED: ALBUT/IPRATROP 3MG/0.5MG NEB 3 ML VIAL NEB STA (09:40)
--- NOTE | 2022-06-13 09:42 | Emergency Department Note ---
History of Present Illness General Chief complaint: Shortness of Breath/Dyspnea Stated complaint: SOB Time Seen by Provider: 06/13/22 09:27 History of Present Illness 87-year-old male presents to the ED with a chief complaint of shortness of breath and a cough that is productive for yellow sputum. The patient states that he also has generalized weakness. His symptoms are worse with exertion. He had a COVID test last Tuesday that was negative. The patient states that he was started on Zithromax and steroids and finished them yesterday. His symptoms progressively worsened since that time. Home Medications Medication Instructions Recorded Confirmed Type cholecalciferol (vitamin D3) 50 2,000 units PO DAILY #90 caps 06/27/19 06/07/22 Rx mcg (2,000 unit) capsule cyanocobalamin (vitamin B-12) 1,000 mcg PO DAILY #90 tabs 06/27/19 06/07/22 Rx 1,000 mcg tablet ranolazine 500 mg tablet,extended 500 mg PO BID #180 tabs 06/27/19 06/07/22 Rx release,12 hr aspirin 81 mg tablet,delayed 81 mg PO DAILY 02/23/21 06/07/22 History release (Juan Low Dose Aspirin) albuterol sulfate 90 mcg/actuation 2 puff inhalation Q4H PRN 03/19/21 06/07/22 Rx aerosol inhaler shortness of breath or wheezing #6.7 grams nitroglycerin 0.4 mg sublingual 0.4 mg sublingual .COMPLEX #25 tabs 03/23/21 06/07/22 Rx tablet ascorbic acid (vitamin C) 1,000 mg 1 g PO DAILY 04/30/21 06/07/22 History tablet metoprolol succinate 25 mg 25 mg PO DAILY 06/17/21 06/07/22 History tablet,extended release 24 hr pen needle, diabetic 31 gauge x #200 ea 09/25/21 06/07/22 Rx 1/4" (1st Tier Unifine Pentips) levothyroxine 75 mcg capsule 75 mcg PO DAILY #90 caps 11/11/21 06/07/22 Rx insulin lispro 100 unit/mL See Rx Instructions subcut TID #15 12/14/21 06/07/22 Rx subcutaneous pen (Humalog KwikPen mL (U-100) Insulin) magnesium oxide 300 mg PO DAILY #30 tabs 12/14/21 06/07/22 Rx mometasone-formoterol HFA 200 2 puff inhalation BID #13 grams 12/14/21 06/07/22 Rx mcg-5 mcg/actuation aerosol inhaler (Dulera) sacubitril 24 mg-valsartan 26 mg 1 tab PO DAILY #30 tabs 12/14/21 06/07/22 Rx tablet (Entresto) furosemide 20 mg tablet 20 mg PO DAILY #90 tabs 12/22/21 06/07/22 Rx insulin glargine 100 unit/mL (3 28 unit (0.28 mL) subcut HS #15 mL 01/11/22 06/07/22 Rx mL) subcutaneous pen (Lantus Solostar U-100 Insulin) atorvastatin 40 mg tablet 40 mg PO DAILY #90 tabs 03/10/22 06/07/22 Rx gabapentin 300 mg capsule 300 mg PO DAILY #30 caps 03/15/22 06/07/22 Rx azithromycin 250 mg tablet 250 mg PO .COMPLEX cough 5 days #6 06/07/22 06/07/22 Rx tabs prednisone 10 mg tablet 10 mg PO .COMPLEX 8 days #20 tabs 06/07/22 06/07/22 Rx Allergies Allergy/AdvReac Type Severity Reaction Status Date / Time levofloxacin Allergy Unknown UNKNOWN Verified 03/10/22 09:19 REACTION Past Med/Surg History Medical History Acute renal failure KAYLI (acute kidney injury) CAD (coronary artery disease), wiyot coronary artery CLL (chronic lymphocytic leukemia) Close exposure to 2018- 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 Brother Cardiac disorder Cancer Father Cancer Mother Cardiac disorder Diabetes Hypertension Social History Smoking Status: Never smoker Hx Alcohol Use: No Hx Substance Use: No Preferred Language: Japanese Communication Ability: Effective Visual Impairment: Limited Hearing Ability: Normal Tax Advisor Required: No Beliefs That Will Affect Care: None marital status: Current Living Situation: Spouse current occupational status: retired Feels Safe at Home: Yes Childhood Exposure to Second-Hand Smoke: No Dental Care, Regularly: Yes Physical Activity Frequency: Daily Seatbelt Use: always Sunscreen Use: No Assistive Devices: Cane and Glasses Review of Systems A total of 10 systems reviewed and were otherwise negative Physical Exam Vital Signs Vital Signs - 24 hr 06/13/22 09:17 06/13/22 09:35 06/13/22 09:35 Temperature 36.8 C Temperature Source Skin Pulse Rate 62 Pulse Rate [Left] Pulse Rate from SpO2 Sensor Pulse Rhythm [Left] Pulse Strength [Left] Respiratory Rate 24 Respiratory Effort / Characteristics Non-Labored Spontaneous Respiratory Depth Normal Normal Respiratory Pattern Regular Regular Blood Pressure 110/64 Blood Pressure [Left Arm] Blood Pressure Mean 79 Blood Pressure Mean [Left Arm] Pulse Oximetry 98 95 Oxygen Delivery Method Room Air Room Air Sepsis Recent Fever Within 48 Hours No Sepsis New/Unexplained Change in Mental Status N/A Sepsis Action Taken by Nursing No Action Required 06/13/22 09:37 06/13/22 09:46 06/13/22 09:46 Temperature Temperature Source Pulse Rate Pulse Rate [Left] 66 Pulse Rate from SpO2 Sensor Pulse Rhythm [Left] Regular Pulse Strength [Left] Normal Respiratory Rate 24 Respiratory Effort / Characteristics Non-Labored Non-Labored Respiratory Depth Normal Respiratory Pattern Regular Blood Pressure Blood Pressure [Left Arm] 118/65 Blood Pressure Mean Blood Pressure Mean [Left Arm] 82 Pulse Oximetry 95 96 96 Oxygen Delivery Method Room Air Room Air Room Air Sepsis Recent Fever Within 48 Hours Sepsis New/Unexplained Change in Mental Status Sepsis Action Taken by Nursing 06/13/22 09:26 06/13/22 09:30 06/13/22 09:36 Temperature Temperature Source Pulse Rate 60 60 67 Pulse Rate [Left] Pulse Rate from SpO2 Sensor 62 Pulse Rhythm [Left] Pulse Strength [Left] Respiratory Rate 24 20 Respiratory Effort / Characteristics Respiratory Depth Respiratory Pattern Blood Pressure 118/65 Blood Pressure [Left Arm] Blood Pressure Mean 82 Blood Pressure Mean [Left Arm] Pulse Oximetry 95 Oxygen Delivery Method Room Air Sepsis Recent Fever Within 48 Hours Sepsis New/Unexplained Change in Mental Status Sepsis Action Taken by Nursing 06/13/22 10:00 06/13/22 10:30 06/13/22 11:00 Temperature Temperature Source Pulse Rate 60 68 60 Pulse Rate [Left] Pulse Rate from SpO2 Sensor 60 68 60 Pulse Rhythm [Left] Pulse Strength [Left] Respiratory Rate 27 H 26 H 28 H Respiratory Effort / Characteristics Respiratory Depth Respiratory Pattern Blood Pressure 110/58 L 110/58 L 104/62 Blood Pressure [Left Arm] Blood Pressure Mean 75 75 76 Blood Pressure Mean [Left Arm] Pulse Oximetry 98 93 94 Oxygen Delivery Method Room Air Room Air Sepsis Recent Fever Within 48 Hours Sepsis New/Unexplained Change in Mental Status Sepsis Action Taken by Nursing 06/13/22 11:23 06/13/22 11:30 06/13/22 12:00 Temperature Temperature Source Pulse Rate 61 60 68 Pulse Rate [Left] Pulse Rate from SpO2 Sensor 62 60 68 Pulse Rhythm [Left] Pulse Strength [Left] Respiratory Rate 22 26 H 27 H Respiratory Effort / Characteristics Respiratory Depth Respiratory Pattern Blood Pressure 106/58 L 115/62 115/65 Blood Pressure [Left Arm] Blood Pressure Mean 74 79 81 Blood Pressure Mean [Left Arm] Pulse Oximetry 96 93 95 Oxygen Delivery Method Room Air Room Air Room Air Sepsis Recent Fever Within 48 Hours Sepsis New/Unexplained Change in Mental Status Sepsis Action Taken by Nursing CONSTITUTIONAL/VITAL SIGNS: Reviewed / noted above. GENERAL: Non-toxic in appearance. INTEGUMENTARY: Warm, dry, and [place]. HEAD: Normocephalic. EYES: without scleral icterus or trauma. ENT/OROPHARYNX: clear and moist. LYMPHADENOPATHY/NECK: Is supple without lymphadenopathy or meningismus. RESPIRATORY: Coarse breath sounds bilaterally with wheezing. Mild increased work of breathing. CARDIOVASCULAR: Regular rate and rhythm. GI/ABDOMEN: Soft and nontender. No organomegaly or pulsatile mass. EXTREMITIES: Warm and well perfused. BACK: No CVA tenderness. NEUROLOGICAL: Intact without focal deficits. PSYCHIATRIC: normal affect. MUSCULOSKELETAL: Normally developed with good muscle tone. TRIAGE NURSING DOCUMENTATION REVIEWED. Course Administered Medications Discontinued Medications Albuterol (Albut/Ipratrop 3mg/0.5mg Neb 3 Ml Vial) 3 ml NEB NOW STA; Protocol Stop: 06/13/22 09:41 Last Admin: 06/13/22 10:11 Dose: 3 ml Documented By: BARBI Cefepime HCl (Maxipime) 2,000 mg in 20 mls @ 5 mls/min IV NOW STA; Protocol Stop: 06/13/22 09:41 Last Admin: 06/13/22 10:07 Dose: 5 mls/min Documented By: BARBI Medical Decision Making Differential Diagnosis The differential was considered includes acute myocardial infarction, acute coronary syndrome, myocarditis, pericarditis, pericardial effusions /tamponad, esophageal perforation, pulmonary embolism, pneumonia, pneumothorax, cardiomyo zaheer, congestive heart, anemia , COPD/asthma exacerbation. Medical Records Attestation: I reviewed the patient's medical records. Home Medications Current Medication List: was personally reviewed by me Laboratory Data Attestation: I reviewed the patient's lab results. Result diagrams: 06/13/22 09:33 06/13/22 09:33 Lab Results 06/13/22 06/13/22 06/13/22 Range/Units 09:33 09:33 09:33 WBC 23.54 H (4.8-10.8) K/ul RBC 3.57 L (4.63-6.08) M/uL Hgb 11.2 L (14.0-18.0) g/dl Hct 35.1 L (40.1-51.0) % MCV 98.3 (80.0-100.0) fL MCH 31.4 (25.0-34.0) pg MCHC 31.9 L (32.0-36.0) g/dL RDW Std Deviation 54.9 H (36.4-46.3) fL RDW Coeff of Real 15.2 H (11.5-14.5) % Plt Count 147 (130-400) K/uL MPV 11.0 (9.4-12.4) fL Immature Gran % (Auto) 0.3 % Neut % (Auto) 42.2 % Lymph % (Auto) 49.7 % [place] % (Auto) 7.1 % Eos % (Auto) 0.4 % Baso % (Auto) 0.3 % Neut # (Auto) 9.95 H (1.4-6.5) K/uL Lymph # (Auto) 11.71 H (1.2-3.4) K/uL [place] # (Auto) 1.66 H (0.24-0.82) K/uL Eos # (Auto) 0.09 (0-0.50) K/uL Baso # (Auto) 0.06 (0-0.2) K/uL Immature Gran # (Auto) 0.07 H (0.00-0.02) K/uL Smudge Cells Present Ovalocytes 1+ PT 10.9 (9.0-12.0) Seconds INR 1.0 (0.9-1.1) APTT 23.3 (21.0-31.0) Seconds PTT Ratio 0.8 Sodium 145 (136-145) mmol/L Potassium 3.7 (3.5-5.1) mmol/L Chloride 109 H (98-107) mmol/L Carbon Dioxide 28 (21-32) mmol/L Anion Gap 8 (3-11) BUN 24 H (6-23) mg/dl Creatinine 1.40 (0.6-1.4) mg/dl Est Cr Clr Drug Dosing 36.0 ml/min Est GFR ( Amer) 52.0 ml/min Est GFR (Non-Af Amer) 44.9 ml/min BUN/Creatinine Ratio 17.1 (10-20) Glucose 182 H (70-99(Fasting)) mg/dl Lactate (0.4-2.0) mmol/L Calcium 8.4 L (8.5-10.1) mg/dl Magnesium 2.1 (1.7-2.4) mg/dl Total Bilirubin 0.5 (0.2-1.0) mg/dl AST 26 (13-39) U/L ALT 47 (7-52) U/L Alkaline Phosphatase 84 (34-104) U/L Troponin I High Sens 41.8 H (0-20) pg/ml Total Protein 5.6 L (6.0-8.3) gm/dl Albumin 3.5 (3.4-5.0) gm/dl Globulin 2.1 L (2.5-4.0) gm/dl Albumin/Globulin Ratio 1.7 (0.9-2) Procalcitonin (0-0.5) ng/ml Adenovirus (PCR) (NotDetected) B. pertussis DNA (PCR) (NotDetected) B.parapertussis DNA PCR (NotDetected) C. pneumoniae DNA (PCR) (NotDetected) Coronavirus OC43 (PCR) (NotDetected) Coronavirus HKU1 (PCR) (NotDetected) Coronavirus 229E (PCR) (NotDetected) SARS-CoV-2 (PCR) (NotDetected) Coronavirus NL63 (PCR) (NotDetected) Human Metapneumovir PCR (NotDetected) Influenza Type A (PCR) (NotDetected) Influenza Type B (PCR) (NotDetected) M. pneumoniae (PCR) (NotDetected) Parainfluenza 1 (PCR) (NotDetected) Parainfluenza 2 (PCR) (NotDetected) Parainfluenza 3 (PCR) (NotDetected) Parainfluenza 4 (PCR) (NotDetected) RSV (PCR) (NotDetected) Entero/Rhino (PCR) (NotDetected) 06/13/22 06/13/22 06/13/22 Range/Units 09:33 09:55 09:55 WBC (4.8-10.8) K/ul RBC (4.63-6.08) M/uL Hgb (14.0-18.0) g/dl Hct (40.1-51.0) % MCV (80.0-100.0) fL MCH (25.0-34.0) pg MCHC (32.0-36.0) g/dL RDW Std Deviation (36.4-46.3) fL RDW Coeff of Real (11.5-14.5) % Plt Count (130-400) K/uL MPV (9.4-12.4) fL Immature Gran % (Auto) % Neut % (Auto) % Lymph % (Auto) % [place] % (Auto) % Eos % (Auto) % Baso % (Auto) % Neut # (Auto) (1.4-6.5) K/uL Lymph # (Auto) (1.2-3.4) K/uL [place] # (Auto) (0.24-0.82) K/uL Eos # (Auto) (0-0.50) K/uL Baso # (Auto) (0-0.2) K/uL Immature Gran # (Auto) (0.00-0.02) K/uL Smudge Cells Ovalocytes PT (9.0-12.0) Seconds INR (0.9-1.1) APTT (21.0-31.0) Seconds PTT Ratio Sodium (136-145) mmol/L Potassium (3.5-5.1) mmol/L Chloride (98-107) mmol/L Carbon Dioxide (21-32) mmol/L Anion Gap (3-11) BUN (6-23) mg/dl Creatinine (0.6-1.4) mg/dl Est Cr Clr Drug Dosing ml/min Est GFR ( Amer) ml/min Est GFR (Non-Af Amer) ml/min BUN/Creatinine Ratio (10-20) Glucose (70-99(Fasting)) mg/dl Lactate 1.5 (0.4-2.0) mmol/L Calcium (8.5-10.1) mg/dl Magnesium (1.7-2.4) mg/dl Total Bilirubin (0.2-1.0) mg/dl AST (13-39) U/L ALT (7-52) U/L Alkaline Phosphatase (34-104) U/L Troponin I High Sens (0-20) pg/ml Total Protein (6.0-8.3) gm/dl Albumin (3.4-5.0) gm/dl Globulin (2.5-4.0) gm/dl Albumin/Globulin Ratio (0.9-2) Procalcitonin < 0.05 (0-0.5) ng/ml Adenovirus (PCR) Not Detected (NotDetected) B. pertussis DNA (PCR) Not Detected (NotDetected) B.parapertussis DNA PCR Not Detected (NotDetected) C. pneumoniae DNA (PCR) Not Detected (NotDetected) Coronavirus OC43 (PCR) Not Detected (NotDetected) Coronavirus HKU1 (PCR) Not Detected (NotDetected) Coronavirus 229E (PCR) Not Detected (NotDetected) SARS-CoV-2 (PCR) Not Detected (NotDetected) Coronavirus NL63 (PCR) Not Detected (NotDetected) Human Metapneumovir PCR Not Detected (NotDetected) Influenza Type A (PCR) Not Detected (NotDetected) Influenza Type B (PCR) Not Detected (NotDetected) M. pneumoniae (PCR) Not Detected (NotDetected) Parainfluenza 1 (PCR) Not Detected (NotDetected) Parainfluenza 2 (PCR) Not Detected (NotDetected) Parainfluenza 3 (PCR) Not Detected (NotDetected) Parainfluenza 4 (PCR) Not Detected (NotDetected) RSV (PCR) Not Detected (NotDetected) Entero/Rhino (PCR) DETECTED A* (NotDetected) Imaging Data Radiologist's Impression: Chest X-Ray 06/13/22 09:38 XR chest 1V portable CLINICAL HISTORY: SEPSIS COMPARISON STUDY: Chest CT February 24, 2021. Chest radiograph February 25, 2021 FINDINGS: Left subclavian biventricular pacer/AICD is in place. Cardiomegaly is unchanged. No evidence for pulmonary edema. No consolidation to suggest pneumonia. Right upper lobe airspace opacity on prior chest radiograph has resolved. No pneumothorax or pleural effusion. IMPRESSION: No acute cardiopulmonary findings. ACT 112: Negative or not required by law. Electronically signed by: Camron Santos M.D. 06/13/2022 9:[address] 06/13/22 09:53 CT OF THE CHEST WITHOUT IV CONTRAST CLINICAL HISTORY: Shortness of breath. Cough. COMPARISON STUDY: Chest CT February 24, 2021. Chest radiograph performed earlier today. CT DOSE: 350.57 mGy.cm TECHNIQUE: Axial images of the chest were obtained without IV contrast. Images were reviewed in the axial, sagittal, and coronal planes. IV contrast was not administered for this examination. Automated exposure control was utilized for the study. A dose lowering technique was utilized adhering to the principles of ALARA. FINDINGS: Left subclavian biventricular pacer/AICD is in place. Extensive coronary calcification is present. 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 Mild cardiomegaly is noted. No pericardial effusion. No pneumothorax or pleural effusion. Bilateral l ower lobe nodular thickening with mild mucus plugging is noted. Bilateral lower lobe airspace opacities are noted, including tree-in-bud nodules. No lobar consolidation is present. No central obstructing mass is present. No pneumothorax or pleural effusion. Calcified granulomas are incidentally noted. Mediastinal lymphadenopathy is similar to CT of February 24, 2021. Index right paratracheal lymph node measures 1.3 cm. Calcified mediastinal and right hilar lymph nodes are present. Gallstones within the gallbladder noted. Pancreatic calcifications are present. Pancreatic ductal dilatation is unchanged or minimally increased since abdominal CT of August 29, 2019. No acute fracture or suspicious lesion within visualized skeletal structures. IMPRESSION: 1. Bilateral lower lobe bronchial wall thickening, mucus plugging and airspace opacities with tree-in-bud nodules. The findings favor an infectious process such as bronchiolitis or developing bronchopneumonia. Although less likely, sequela of aspiration is also within the differential. 2. No significant change in mild thoracic lymphadenopathy. 3. Cholelithiasis. 4. Evidence for chronic pancreatitis. Stable to slight increase in pancreatic ductal dilatation. ACT 112: Negative or not required by law. Electronically signed by: Camron Santos M.D. 06/13/2022 11:31 AM ECG Data Attestation: I personally reviewed and interpreted this ECG as follows: Additional Comments: Twelve-lead EKG: Per my interpretation shows a paced ventricular rhythm at a rate of 62. No ST elevation. No PVCs. Normal QTC. MDM Narrative 87-year-old male presents to the ED with a chief complaint of shortness of breath for the past week or more. Finished a 5-day course of Zithromax and steroids and has progressively worsened since that time. He is reporting a productive cough for yellow sputum as well as increased weakness and shortness of breath that is worse with exertion. His vital signs are stable. Afebrile. Oxygen saturations are in the mid 90s on room air. Lung sounds are coarse wheezing bilaterally. The scan of the chest shows bilateral lower lobe airspace disease concerning for pneumonia. Blood cell count was 23,000. Did patient does have a history of CLL. Chemistry panel was unremarkable. BUN was 24. Bio fire testing was positive for the rhinovirus. EKG shows a paced ventricular rhythm. The patient was treated with IV cefepime empirically as well as given a DuoNeb treatment. He will be seen by the hospitalist for further evaluation and care. Impression & Plan Bilateral pneumonia, Generalized weakness Discharge Plan Visit Data Chief Complaint: Shortness of Breath/Dyspnea Stated Complaint: SOB ED Provider: Ward Downs Discharge Problem: Bilateral pneumonia, Generalized weakness Patient Disposition: Being Evaluated by Hospitalist Forms Stand Alone Forms: My [facility] Prescriptions Prescriptions: No Action nitroglycerin 0.4 mg tablet, sublingual 0.4 mg SL .COMPLEX Qty: 25 3RF Rx Instructions: 0.4 mg SL EVERY 5 MINUTES FOR UP TO 2 DOSES PRN FOR CHEST PAIN. CALL 911 IF PAIN PERSISTS; (DME) pen needle, diabetic [1st Tier Unifine Pentips] 31 gauge x 1/4" needle See Rx Instructions .Route Qty: 200 5RF Rx Instructions: qid As directed furosemide 20 mg tablet 20 mg PO DAILY Qty: 90 3RF gabapentin 300 mg capsule 300 mg PO DAILY Qty: 30 2RF cholecalciferol (vitamin D3) 2,000 unit capsule 2,000 units PO DAILY Qty: 90 0RF cyanocobalamin (vitamin B-12) 1,000 mcg tablet 1,000 mcg PO DAILY Qty: 90 0RF ranolazine 500 mg tablet extended release 12 hr 500 mg PO BID Qty: 180 0RF ascorbic acid (vitamin C) 1,000 mg tablet 1 g PO DAILY albuterol sulfate 90 mcg/actuation HFA aerosol inhaler 2 puff INH Q4H PRN (Reason: shortness of breath or wheezing) Qty: 6.7 5RF Lantus Solostar U-100 Insulin 100 unit/mL (3 mL) insulin pen 28 unit SQ HS Qty: 15 11RF azithromycin 250 mg tablet 250 mg PO .COMPLEX MDD 2 5 Days Qty: 6 0RF Rx Instructions: 250 mg PO Two pills today pill daily for 4 more days.; prednisone 10 mg tablet 10 mg PO .COMPLEX 8 Days Qty: 20 0RF Rx Instructions: 4 for 2 days, 3 for 2 days, 2 for 2 days, 1 for 2 days then off.; metoprolol succinate 25 mg tablet extended release 24 hr 25 mg PO DAILY levothyroxine 75 mcg capsule 75 mcg PO DAILY Qty: 90 3RF atorvastatin 40 mg tablet 40 mg PO DAILY Qty: 90 3RF Dulera 200-5 mcg/actuation HFA aerosol inhaler 2 puff inhalation BID Qty: 13 2RF magnesium oxide 400 mg magnesium tablet 300 mg PO DAILY Qty: 30 0RF Entresto 24-26 mg tablet 1 tab PO DAILY Qty: 30 2RF insulin lispro [Humalog KwikPen Insulin] 100 unit/mL insulin pen See Rx Instructions SQ TID Qty: 15 11RF Rx Instructions: 13U AM, 11U lunch, 20 U supper plus SS, max 50 units daily subcut three times a day; aspirin [Juan Low Dose Aspirin] 81 mg Tablet,Delayed Release (Dr/Ec) 81 mg PO DAILY Referrals Referrals: Obed Gómez MD [Primary Care Provider] -
--- NOTE | 2022-06-13 10:00 | XRay Report ---
XR chest 1V portable CLINICAL HISTORY: SEPSIS COMPARISON STUDY: Chest CT February 24, 2021. Chest radiograph February 25, 2021 FINDINGS: Left subclavian biventricular pacer/AICD is in place. Cardiomegaly is unchanged. No evidenc e for pulmonary edema. No consolidation to suggest pneumonia. Right upper lobe airspace opacity on pr ior chest radiograph has resolved. No pneumothorax or pleural effusion. IMPRESSION: No acute cardiopulmonary findings. ACT 112: Negative or not required by law. Electronically signed by: Camron Santos M.D. 06/13/2022 9:59 AM
[2022-06-13 10:09] LABS: Partial Thromboplastin Ratio 0.8; Partial Thromboplastin Time 23.3 Seconds (21.0-31.0); Prothrombin Time 10.9 Seconds (9.0-12.0)
[2022-06-13 10:22] LABS: Troponin I High Sensitivity 41.8 pg/ml (0-20)
[2022-06-13 10:24] LABS: Hematocrit (blood only) 35.1 % (40.1-51.0); Hemoglobin 11.2 g/dl (14.0-18.0); Mean Corpuscular Hemoglobin 31.4 pg (25.0-34.0); Mean Corpuscular Hgb Conc 31.9 g/dL (32.0-36.0); Mean Corpuscular Volume 98.3 fL (80.0-100.0); Platelet Count 147 K/uL (130-400); RDW Coefficient of Variation 15.2 % (11.5-14.5); RDW Standard Deviation 54.9 fL (36.4-46.3); Red Blood Count 3.57 M/uL (4.63-6.08); White Blood Count 23.54 K/ul (4.8-10.8)
[2022-06-13 10:44] LABS: BUN Creatinine Ratio 17.1 (10-20); Calcium 8.4 mg/dl (8.5-10.1); Est GFR (Non-African American) 44.9 ml/min; Potassium 3.7 mmol/L (3.5-5.1)
[2022-06-13 10:46] LABS: Albumin Globulin Ratio 1.7 (0.9-2); Albumin Level 3.5 gm/dl (3.4-5.0); Bilirubin,Total 0.5 mg/dl (0.2-1.0); Globulin 2.1 gm/dl (2.5-4.0); Magnesium 2.1 mg/dl (1.7-2.4); Total Protein 5.6 gm/dl (6.0-8.3)
[2022-06-13 10:49] LABS: Basophils # (auto) 0.06 K/uL (0-0.2); Basophils % (auto) 0.3 %; Eosinophils # (auto) 0.09 K/uL (0-0.50); Eosinophils % (auto) 0.4 %; Immature Granulocytes # (auto) 0.07 K/uL (0.00-0.02); Immature Granulocytes % (auto) 0.3 %; Lymphocytes # (auto) 11.71 K/uL (1.2-3.4); Lymphocytes % (auto) 49.7 %; Monocytes # (auto) 1.66 K/uL (0.24-0.82); Monocytes % (auto) 7.1 %; Neutrophils # (auto) 9.95 K/uL (1.4-6.5); Neutrophils % (auto) 42.2 %; Ovalocytes 1+; Smudge Cells Present
--- NOTE | 2022-06-13 11:33 | CT Scan Report ---
CT OF THE CHEST WITHOUT IV CONTRAST CLINICAL HISTORY: Shortness of breath. Cough. COMPARISON STUDY: Chest CT February 24, 2021. Chest radiograph performed earlier today. CT DOSE: 350.57 mGy.cm TECHNIQUE: Axial images of the chest were obtained without IV contrast. Images were reviewed in the axial, sagittal, and coronal planes. IV contrast was not administered for this examination. Automat ed exposure control was utilized for the study. A dose lowering technique was utilized adhering to t he principles of ALARA. FINDINGS: Left subclavian biventricular pacer/AICD is in place. Extensive coronary calcification is present. Evidence for old infarct involving the interventricular septum and apex of the left ventricl e. Mild cardiomegaly is noted. No pericardial effusion. No pneumothorax or pleural effusion. Bilatera l lower lobe nodular thickening with mild mucus plugging is noted. Bilateral lower lobe airspace opac ities are noted, including tree-in-bud nodules. No lobar consolidation is present. No central obstruc ting mass is present. No pneumothorax or pleural effusion. Calcified granulomas are incidentally note d. Mediastinal lymphadenopathy is similar to CT of February 24, 2021. Index right paratracheal lymph no de measures 1.3 cm. Calcified mediastinal and right hilar lymph nodes are present. Gallstones within the gallbladder noted. Pancreatic calcifications are present. Pancreatic ductal dilatation i s unchanged or minimally increased since abdominal CT of August 29, 2019. No acute fracture or suspi cious lesion within visualized skeletal structures. IMPRESSION: 1. Bilateral lower lobe bronchial wall thickening, mucus plugging and airspace opacities with tree-in -bud nodules. The findings favor an infectious process such as bronchiolitis or developing bronchopne umonia. Although less likely, sequela of aspiration is also within the differential. 2. No significant change in mild thoracic lymphadenopathy. 3. Cholelithiasis. 4. Evidence for chronic pancreatitis. Stable to slight increase in pancreatic ductal dilatation. ACT 112: Negative or not required by law. Electronically signed by: Camron Santos M.D. 06/13/2022 11:31 AM
[2022-06-13 12:08] LABS: Adenovirus PCR Not Detected (NotDetected); Bordetella parapertussis PCR Not Detected (NotDetected); Bordetella pertussis PCR Not Detected (NotDetected); Chlamydia pneumoniae PCR Not Detected (NotDetected); Coronavirus 229E PCR Not Detected (NotDetected); Coronavirus CoV-2 (COVID19)PCR Not Detected (NotDetected); Coronavirus HKU1 PCR Not Detected (NotDetected); Coronavirus NL63 PCR Not Detected (NotDetected); Coronavirus OC43PCR Not Detected (NotDetected); Human Metapneumovirus PCR Not Detected (NotDetected); Influenza A PCR Not Detected (NotDetected); Influenza B PCR Not Detected (NotDetected); Mycoplasma pneumoniae PCR Not Detected (NotDetected); Parainfluenza Virus 1 PCR Not Detected (NotDetected); Parainfluenza Virus 2 PCR Not Detected (NotDetected); Parainfluenza Virus 3 PCR Not Detected (NotDetected); Parainfluenza Virus 4 PCR Not Detected (NotDetected); Respiratory Syncytial VirusPCR Not Detected (NotDetected)
[2022-06-13 12:22] LABS: Rhinovirus/Enterovirus PCR DETECTED (NotDetected)
[2022-06-13] MEDS ORDERED: ACETAMINOPHEN 325 MG TAB PO PRN (12:43)
[2022-06-13] MEDS ORDERED: POLYETHYLENE (MIRALAX) 17 GM PACK PO PRN (12:43)
--- NOTE | 2022-06-13 12:56 | History & Physical Report ---
Date of Service June 13, 2022 Assessment & Plan (1) Bronchitis: Plan: Patient presents with 10-14 day history of increased dyspnea at rest and with exertion with sputum production following "cold". - Bronchitis/bronchiolitis in the setting of entero virus - PCT negative- no further abx warranted at this time - No opacity on CXR, no fevers, and no oxygen requirement - CT scan above consistent with acute on chronic bronchiolitis- he is on albuterol and Dulera at home but he reports only being on these in [facility] - Supportive care at this time- Albuterol nebulizers scheduled, budesonide nebs BID, Hypertonic saline BID, Flutter Valve QID - If improvement in AM can transition back to Inh with PRN nebulizers - Leukocytosis consistent with CLL and steroid demanganization - follow - Recommend dischargeing with a MYA/ICS/LABA CT scan 03/04 with bronchial dilation and secretion layering (2) Type 2 diabetes mellitus with microalbuminuria: Plan: Controlled HGB a1c 6.7 - continue basal bolus insulin with Lantus 20units and aspart sliding scale CF 20 with ratio 1: 10 (3) Hypothyroidism: Plan: Continue with Synthroid (4) Elevated troponin: Plan: Troponin elevated on admission, without chest pain or acute EKG changes. Likely demand ischemia. - Trend troponin, second pending now - Consider echo if significant change. (5) CAD (coronary artery disease), [place] coronary artery: Plan: CAD with Anterior CA history with resulting ICM with HfrEF 30-35% in 06/03- - Cath 05.04 with 80% distal left main into proxiaml LAD - 90% D1 - Total occlusion of proximal with collaterals - Total occlusion of RCA with collaterals - Continue Entresto - Continue Statin - Continue ASA - Continue Lasix (6) Lumbar spinal stenosis: Plan: Chronic with RLS and nueropathy to feet - combination of above and DM - Continue with Gabapentin - Continue with Tylenol (7) Neuropathy: Plan: As above (8) Pacemaker: Plan: AICD - [employer] - BIv 2014 - DDD on the monitor with AV sense and AV paced - Unsure of any other settings as not in our system (9) CLL (chronic lymphocytic leukemia): Plan: CLL in 2000 with development of hodkins lymphoma in 2014 - underwent 5 cycles of chemotherapy ending in 2010 (R-CVP chemo) followed by radiation - Trial on ibrutinib but discontinued secondary to fatigue-- 201 progression of disease in 2014 revealed Hodgkin lymphoma - Hodgkin lymphoma treated with brentuximab (10) Congestive heart failure (CHF): Plan: Chronic from ICM HFrEF as above - this is not an acute exacerbation at this time - last ECHO 06/03- (11) Lymphadenopathy: Plan: Mediastinal Lymphadenopathy - reported as stable when compared to 2020 - calcified mediastinal and hilar lymph nodes as well History of Present Illness Primary Care Provider: Obed Gómez MD 87 YOM with medical history of: CA, ICM, HFrEF, AICD, CAD, DM, CA, HLD, pneumonia, CLLL. Patient comes to the EMD today for complaints of dyspnea over the past 2 weeks that has been getting progressively worse. He completed a course of Azithromycin and Prednisone by his PCP. He finished his steroids to day. He states that about a week or so ago he had a "cold" that started with sinus congestion and then progressed into a cough. He is coughing up thick light yellow secretions. He denies any fever. He states that he also had some increase in leg swelling during that time so he has been taking double his Lasix oral dose at home - which would be 40mg that he was taking. This did not impact his breathing. In the EMD the patient had routine labs performed to include a HScTNI, CXR, CT non con of the ches, and respiratory BIOfire. He was given a dose of Cefepime and 1 albuterol nebulizer. Hospitalist was consulted for admission. Patient CT scan consistent with bronchitis/bronchiolitis and his biofire returned with entero virus. Paitient will be observed overnight with MYA nebulizers, Pulmicort, and flutter valve. Patient used to work in the [employer] and [employer] for 20 years. He did not wear respirator during that time Allergies Allergy/AdvReac Type Severity Reaction Status Date / Time levofloxacin Allergy Unknown UNKNOWN Verified 03/10/22 09:19 REACTION Home Medications Medication Instructions Recorded Confirmed Type cholecalciferol (vitamin D3) 50 2,000 units PO DAILY #90 caps 06/27/19 06/07/22 Rx mcg (2,000 unit) capsule cyanocobalamin (vitamin B-12) 1,000 mcg PO DAILY #90 tabs 06/27/19 06/07/22 Rx 1,000 mcg tablet ranolazine 500 mg tablet,extended 500 mg PO BID #180 tabs 06/27/19 06/07/22 Rx release,12 hr aspirin 81 mg tablet,delayed 81 mg PO DAILY 02/23/21 06/07/22 History release (Juan Low Dose Aspirin) albuterol sulfate 90 mcg/actuation 2 puff inhalation Q4H PRN 03/19/21 06/07/22 Rx aerosol inhaler shortness of breath or wheezing #6.7 grams nitroglycerin 0.4 mg sublingual 0.4 mg sublingual .COMPLEX #25 tabs 03/23/21 06/07/22 Rx tablet ascorbic acid (vitamin C) 1,000 mg 1 g PO DAILY 04/30/21 06/07/22 History tablet metoprolol succinate 25 mg 25 mg PO DAILY 06/17/21 06/07/22 History tablet,extended release 24 hr pen needle, diabetic 31 gauge x #200 ea 09/25/21 06/07/22 Rx 1/4" (1st Tier Unifine Pentips) levothyroxine 75 mcg capsule 75 mcg PO DAILY #90 caps 11/11/21 06/07/22 Rx insulin lispro 100 unit/mL See Rx Instructions subcut TID #15 12/14/21 06/07/22 Rx subcutaneous pen (Humalog KwikPen mL (U-100) Insulin) magnesium oxide 300 mg PO DAILY #30 tabs 12/14/21 06/07/22 Rx mometasone-formoterol HFA 200 2 puff inhalation BID #13 grams 12/14/21 06/07/22 Rx mcg-5 mcg/actuation aerosol inhaler (Dulera) sacubitril 24 mg-valsartan 26 mg 1 tab PO DAILY #30 tabs 12/14/21 06/07/22 Rx tablet (Entresto) furosemide 20 mg tablet 20 mg PO DAILY #90 tabs 12/22/21 06/07/22 Rx insulin glargine 100 unit/mL (3 28 unit (0.28 mL) subcut HS #15 mL 01/11/22 06/07/22 Rx mL) subcutaneous pen (Lantus Solostar U-100 Insulin) atorvastatin 40 mg tablet 40 mg PO DAILY #90 tabs 03/10/22 06/07/22 Rx gabapentin 300 mg capsule 300 mg PO DAILY #30 caps 03/15/22 06/07/22 Rx azithromycin 250 mg tablet 250 mg PO .COMPLEX cough 5 days #6 06/07/22 06/07/22 Rx tabs prednisone 10 mg tablet 10 mg PO .COMPLEX 8 days #20 tabs 06/07/22 06/07/22 Rx Past Med/Surg History Medical History Acute renal failure KAYLI (acute kidney injury) CAD (coronary artery disease), [place] coronary artery CLL (chronic lymphocytic leukemia) Close exposure to 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 Brother Cardiac disorder Cancer Father Cancer Mother Cardiac disorder Diabetes Hypertension Social History Smoking Status: Never smoker Second Hand Exposure: No; Do You Dip or Chew Tobacco: No; Hx Alcohol Use: No Hx Substance Use: No Preferred Language: Turkmen Communication Ability: Effective Visual Impairment: Limited Hearing Ability: Normal Steel Erecting Pusher Required: No Beliefs That Will Affect Care: None marital status: Current Living Situation: Spouse current occupational status: retired Other Information That Helps Us Care for You: No Feels Safe at Home: Yes Safety Concerns: Feels Safe At This Time Childhood Exposure to Second-Hand Smoke: No Dental Care, Regularly: Yes Physical Activity Frequency: Daily Seatbelt Use: always Sunscreen Use: No Assistive Devices: None Review of Systems Review of Systems: REVIEW OF SYSTEMS: Constitutional: No fever, sweats or chills Eyes: No diplopia, no worsening or blurred vision ENT: normal hearing, no trouble swallowing Respiratory: (+) dyspnea, cough, sputum, Cardiovascular: No chest pain, tightness or palpitations Abdomen: No pain, nausea, vomiting, diarrhea or constipation Musculoskeletal: (+) chronic low back pain, calf pain, swelling Neurologic: No weakness, numbness/tingling, or balance problems Psychiatric: No anxiety or depression Skin: (+) hx of skin cancer Physical Exam Physical Exam: PHYSICAL EXAM: General: awake, alert, no apparent distress Head: Normocephalic, atraumatic ENT: PERRL, EOMI, no pharyngeal exudate, mucous membranes moist Neuro: AAO x 3, speech clear and appropriate, strength intact bilaterally 5/5, sensation intact and equal all extremities and dermatomes, no pronator drift Chest: equal rise and fall of the chest, no accessory muscle use, inspiratory and expiratory wheezing, with scattered rhonchi, deep rasping cough Cardiac: Regular rate and rhythm, telemetry reviewed- AV paced, skin warm dry, cap refill <3 seconds, peripheral pulses +2 no JVD, no murmur, trace bilateral lower extremity edema GI: NABS x 4 quadrants, soft, nontender to palpation, no rebound, guarding or tenderness : Spontaneously voiding, no pain, no CVA tenderness, Extremities: Normal inspection, no peripheral edema or erythema, calfs nontender to palpation Psych: Normal mood and affect Skin: no rash or erythema Results & Data Results & Data ([facility]) Vital Signs (Past 12 Hours) Vital Signs Temp Pulse Pulse Resp BP BP Pulse Ox 06/13/22 12:00 68 27 H 115/65 95 06/13/22 11:30 60 26 H 115/62 93 06/13/22 11:23 61 22 106/58 L 96 06/13/22 11:00 60 28 H 104/62 94 06/13/22 10:30 68 26 H 110/58 L 93 06/13/22 10:00 60 27 H 110/58 L 98 06/13/22 09:36 67 20 118/65 95 06/13/22 09:30 60 24 06/13/22 09:26 60 06/13/22 09:46 96 06/13/22 09:46 96 06/13/22 09:37 66 24 118/65 95 06/13/22 09:35 95 06/13/22 09:17 36.8 C 62 24 110/64 98 O2 Del Method 06/13/22 12:00 Room Air 06/13/22 11:30 Room Air 06/13/22 11:23 Room Air 06/13/22 11:00 Room Air 06/13/22 10:30 Room Air 06/13/22 10:00 06/13/22 09:36 Room Air 06/13/22 09:30 06/13/22 09:26 06/13/22 09:46 Room Air 06/13/22 09:46 Room Air 06/13/22 09:37 Room Air 06/13/22 09:35 Room Air 06/13/22 09:17 Room Air Laboratory Results Abnormal lab results 06/13/22 06/13/22 06/13/22 Range/Units 09:33 09:33 09:55 WBC 23.54 H (4.8-10.8) K/ul RBC 3.57 L (4.63-6.08) M/uL Hgb 11.2 L (14.0-18.0) g/dl Hct 35.1 L (40.1-51.0) % MCHC 31.9 L (32.0-36.0) g/dL RDW Std Deviation 54.9 H (36.4-46.3) fL RDW Coeff of Real 15.2 H (11.5-14.5) % Neut # (Auto) 9.95 H (1.4-6.5) K/uL Lymph # (Auto) 11.71 H (1.2-3.4) K/uL [place] # (Auto) 1.66 H (0.24-0.82) K/uL Immature Gran # (Auto) 0.07 H (0.00-0.02) K/uL Chloride 109 H (98-107) mmol/L BUN 24 H (6-23) mg/dl Glucose 182 H (70-99(Fasting)) mg/dl Calcium 8.4 L (8.5-10.1) mg/dl Troponin I High Sens 41.8 H (0-20) pg/ml Total Protein 5.6 L (6.0-8.3) gm/dl Globulin 2.1 L (2.5-4.0) gm/dl Entero/Rhino (PCR) DETECTED A* (NotDetected) Diagnostic Findings Chest X-Ray 06/13/22 09:38 XR chest 1V portable CLINICAL HISTORY: SEPSIS COMPARISON STUDY: Chest CT February 24, 2021. Chest radiograph February 25, 2021 FINDINGS: Left subclavian biventricular pacer/AICD is in place. Cardiomegaly is unchanged. No evidence for pulmonary edema. No consolidation to suggest pneumonia. Right upper lobe airspace opacity on prior chest radiograph has resolved. No pneumothorax or pleural effusion. IMPRESSION: No acute cardiopulmonary findings. ACT 112: Negative or not required by law. Electronically signed by: Camron Santos M.D. 06/13/2022 9:[address] 06/13/22 09:53 CT OF THE CHEST WITHOUT IV CONTRAST CLINICAL HISTORY: Shortness of breath. Cough. COMPARISON STUDY: Chest CT February 24, 2021. Chest radiograph performed earlier today. CT DOSE: 350.57 mGy.cm TECHNIQUE: Axial images of the chest were obtained without IV contrast. Images were reviewed in the axial, sagittal, and coronal planes. IV contrast was not administered for this examination. Automated exposure control was utilized for the study. A dose lowering technique was utilized adhering to the principles of ALARA. FINDINGS: Left subclavian biventricular pacer/AICD is in place. Extensive coronary calcification is present. 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 Mild cardiomegaly is noted. No pericardial effusion. No pneumothorax or pleural effusion. Bilateral lower lobe nodular thickening with mild mucus plugging is noted. Bilateral lower lobe airspace opacities are noted, including tree-in-bud nodules. No lobar consolidation is present. No central obstructing mass is present. No pneumothorax or pleural effusion. Calcified granulomas are incidentally noted. Mediastinal lymphadenopathy is similar to CT of February 24, 2021. Index right paratracheal lymph node measures 1.3 cm. Calcified mediastinal and right hilar lymph nodes are present. Gallstones within the gallbladder noted. Pancreatic calcifications are present. Pancreatic ductal dilatation is unchanged or minimally increased since abdominal CT of August 29, 2019. No acute fracture or suspicious lesion within visualized skeletal structures. IMPRESSION: 1. Bilateral lower lobe bronchial wall thickening, mucus plugging and airspace opacities with tree-in-bud nodules. The findings favor an infectious process such as bronchiolitis or developing bronchopneumonia. Although less likely, sequela of aspiration is also within the differential. 2. No significant change in mild thoracic lymphadenopathy. 3. Cholelithiasis. 4. Evidence for chronic pancreatitis. Stable to slight increase in pancreatic ductal dilatation. ACT 112: Negative or not required by law. Electronically signed by: Camron Santos M.D. 06/13/2022 11:31 AM Medications Administered Home Medications cholecalciferol (vitamin D3) 50 mcg (2,000 unit) capsule 2,000 units PO DAILY #90 caps 06/27/19 [Rx Confirmed 06/07/22] cyanocobalamin (vitamin B-12) 1,000 mcg tablet 1,000 mcg PO DAILY #90 tabs 06/27/19 [Rx Confirmed 06/07/22] ranolazine 500 mg tablet,extended release,12 hr 500 mg PO BID #180 tabs 06/27/19 [Rx Confirmed 06/07/22] aspirin 81 mg tablet,delayed release (Juan Low Dose Aspirin) 81 mg PO DAILY 02/23/21 [History Confirmed 06/07/22] albuterol sulfate 90 mcg/actuation aerosol inhaler 2 puff inhalation Q4H PRN shortness of breath or wheezing #6.7 grams 03/19/21 [Rx Confirmed 06/07/22] nitroglycerin 0.4 mg sublingual tablet 0.4 mg sublingual .COMPLEX #25 tabs 03/23/21 [Rx Confirmed 06/07/22] ascorbic acid (vitamin C) 1,000 mg tablet 1 g PO DAILY 04/30/21 [History Confi rmed 06/07/22] metoprolol succinate 25 mg tablet,extended release 24 hr 25 mg PO DAILY 06/17/21 [History Confirmed 06/07/22] pen needle, diabetic 31 gauge x 1/4" (1st Tier Unifine Pentips) #200 ea 09/25/21 [Rx Confirmed 06/07/22] levothyroxine 75 mcg capsule 75 mcg PO DAILY #90 caps 11/11/21 [Rx Confirmed 06/07/22] insulin lispro 100 unit/mL subcutaneous pen (Humalog KwikPen (U-100) Insulin) See Rx Instructions subcut TID #15 mL 12/14/21 [Rx Confirmed 06/07/22] magnesium oxide 300 mg PO DAILY #30 tabs 12/14/21 [Rx Confirmed 06/07/22] mometasone-formoterol HFA 200 mcg-5 mcg/actuation aerosol inhaler (Dulera) 2 puff inhalation BID #13 grams 12/14/21 [Rx Confirmed 06/07/22] sacubitril 24 mg-valsartan 26 mg tablet (Entresto) 1 tab PO DAILY #30 tabs 12/14/21 [Rx Confirmed 06/07/22] furosemide 20 mg tablet 20 mg PO DAILY #90 tabs 12/22/21 [Rx Confirmed 06/07/22] insulin glargine 100 unit/mL (3 mL) subcutaneous pen (Lantus Solostar U-100 Insulin) 28 unit (0.28 mL) subcut HS #15 mL 01/11/22 [Rx Confirmed 06/07/22] atorvastatin 40 mg tablet 40 mg PO DAILY #90 tabs 03/10/22 [Rx Confirmed 06/07/22] gabapentin 300 mg capsule 300 mg PO DAILY #30 caps 03/15/22 [Rx Confirmed 06/07/22] azithromycin 250 mg tablet 250 mg PO .COMPLEX cough 5 days #6 tabs 06/07/22 [Rx Confirmed 06/07/22] prednisone 10 mg tablet 10 mg PO .COMPLEX 8 days #20 tabs 06/07/22 [Rx Confirmed 06/07/22] Active Medications Acetaminophen (Acetaminophen 325 Mg Tab) 650 mg PO Q4H PRN PRN Reason: Pain or Fever Stop: 07/13/22 12:42 Albuterol (Albuterol 0.083% Nebu Soln 3 Ml Vial) 2.5 mg NEB Q6R STEPHEN; Protocol Stop: 07/13/22 12:59 Budesonide (Budesonide 0.25 Mg/2 Ml Vial (Pulmicort)) 0.25 mg NEB BIDR STEPHEN Stop: 07/13/22 18:59 Polyethylene Glycol (Polyethylene (Miralax) 17 Gm Pack) 17 gm PO DAILY PRN PRN Reason: Constipation Stop: 07/13/22 12:42 Sodium Chloride (Sodium Chlor 7% 4 Ml Neb) 4 ml NEB BIDR STEPHEN Stop: 07/13/22 18:59 Discontinued Medications Albuterol (Albut/Ipratrop 3mg/0.5mg Neb 3 Ml Vial) 3 ml NEB NOW STA; Protocol Stop: 06/13/22 09:41 Last Admin: 06/13/22 10:11 Dose: 3 ml Documented By: MO Cefepime HCl (Maxipime) 2,000 mg in 20 mls @ 5 mls/min IV NOW STA; Protocol Stop: 06/13/22 09:41 Last Admin: 06/13/22 10:07 Dose: 5 mls/min Documented By: NH ECG Additional Comments: AV dual-paced rhythm Biventricular pacemaker detected Abnormal ECG When compared with ECG of 26-FEB-2021 04:19, Vent. rate has decreased BY 2 BPM Code Status & VTE Plan Code Status CODE: DNR/DNI VTE: SCDS, Heparin 5000 units subq q12 VTE Prophylaxis Plan VTE Prophylaxis will be ordered: Yes Supervising Physician Co-Signing Physician Notes I supervised JAY Holder on this admission. I interviewed and examined the patient independently of him. The plan is as written in his note except for any following changes/exceptions: None 87yo M w/ hx of ischemic cardiomyopathy and CLL who presents with acute shortness of breath and cough that has gone on for the last 10-14 days after a cold. Procalcitonin is negative, but CT chest is showing bronchiolitis or developing bronchopneumonia. He finished a course of azithromycin and prednisone via his PCP without improvement. He does have a history of exposure to fertilizer. Will treat for bronchitis with some element of bronchiectasis. If he does not improve, will get pulmonary as he was open to bronchoscopy for me if indicated. Defer abx for now, but low threshold to restart a course aimed at S. pneumo given his pneumonia in November. PG Care Time/CCT Total # of Minutes Spent Total Time Spent with Patient: Total time spent is greater than 50% in coordination of care (as documented) at patient's floor/unit and/or counseling patient: Coding Level of Care Code INT OBSERVATION CARE 70M LVL 3 Diagnoses Bronchitis J40 Type 2 diabetes mellitus with microalbuminuria E11.29; R80.9 Hypothyroidism E03.9 Elevated troponin R77.8 CAD (coronary artery disease), [place] coronary artery I25.10 Lumbar spinal stenosis M48.061 Neuropathy G62.9 Pacemaker Z95.0 CLL (chronic lymphocytic leukemia) C91.90 Congestive heart failure (CHF) I50.9 Lymphadenopathy R59.1
[2022-06-13] MEDS: ALBUTEROL 0.083% NEBU SOLN 3 ML VIAL NEB SCH ×2 (14:19→19:40)
[2022-06-13] MEDS ORDERED: GLUCOSE 40% GEL 15 GM TUBE PO PRN (14:24)
[2022-06-13] MEDS ORDERED: CARBOHYDRATES FOR HYPOGLYCEMIA PO PRN (14:24)
[2022-06-13] MEDS ORDERED: DEXTROSE 50% 50 ML SYRINGE IV PRN (14:24)
[2022-06-13] MEDS ORDERED: GLUCOSE 10 TAB/TUBE PO PRN (14:24)
[2022-06-13] MEDS ORDERED: GLUCAGON FOR INJ 1 MG VIAL SQ PRN (14:24)
[2022-06-13] MEDS ORDERED: BUDESONIDE 0.25 MG/2 ML VIAL (PULMICORT) NEB ONE (14:45)
[2022-06-13] MEDS: INSULIN ASPART PER UNIT SC SCH ×2 (17:41→21:01)
[2022-06-13] MEDS: BUDESONIDE 0.25 MG/2 ML VIAL (PULMICORT) NEB SCH (19:40)
[2022-06-13] MEDS: SODIUM CHLOR 7% 4 ML NEB NEB SCH (19:41)
[2022-06-13] MEDS ORDERED: LANTUS PER UNIT CHARGE SQ SCH (21:00)
[2022-06-13] MEDS: RANOLAZINE 500 MG ER TAB PO SCH (21:04)
[2022-06-14] MEDS: ALBUTEROL 0.083% NEBU SOLN 3 ML VIAL NEB SCH ×2 (00:29→07:10)
--- NOTE | 2022-06-14 05:42 | Electrocardiogram Report ---
Test Reason : Blood Pressure : / mmHG Vent. Rate : 062 BPM Atrial Rate : 061 BPM P-R Int : 188 ms QRS Dur : 144 ms QT Int : 472 ms P-R-T Axes : 000 232 -23 degrees QTc Int : 479 ms Poor data quality, interpretation may be adversely affected AV dual-paced rhythm Biventricular pacemaker detected Abnormal ECG When compared with ECG of 26-FEB-2021 04:19, Vent. rate has decreased BY 2 BPM Confirmed by Tom Gleason ([id number]) on 06/14/2022 5:42:39 AM Referred By: REFERRED SELF Confirmed By:Tom Gleason
[2022-06-14] MEDS ORDERED: LEVOTHYROXINE SODIUM 75 MCG TABLET PO SCH (06:30)
[2022-06-14] MEDS: BUDESONIDE 0.25 MG/2 ML VIAL (PULMICORT) NEB SCH (07:10)
[2022-06-14] MEDS: SODIUM CHLOR 7% 4 ML NEB NEB SCH (07:10)
[2022-06-14 07:33] LABS: BUN Creatinine Ratio 17.4 (10-20); Creatinine Clr Calc Pharmacy 38.1 ml/min; Est GFR (African American) 55.8 ml/min; Est GFR (Non-African American) 48.2 ml/min; Magnesium 2.1 mg/dl (1.7-2.4); Potassium 3.8 mmol/L (3.5-5.1)
[2022-06-14 07:36] LABS: Hematocrit (blood only) 32.9 % (40.1-51.0); Hemoglobin 10.4 g/dl (14.0-18.0); Mean Corpuscular Hemoglobin 30.9 pg (25.0-34.0); Mean Corpuscular Hgb Conc 31.6 g/dL (32.0-36.0); Mean Corpuscular Volume 97.6 fL (80.0-100.0); Mean Platelet Volume 11.1 fL (9.4-12.4); Platelet Count 143 K/uL (130-400); RDW Coefficient of Variation 15.6 % (11.5-14.5); RDW Standard Deviation 54.4 fL (36.4-46.3); Red Blood Count 3.37 M/uL (4.63-6.08); White Blood Count 18.23 K/ul (4.8-10.8)
[2022-06-14 08:04] LABS: Basophils # (auto) 0.03 K/uL (0-0.2); Basophils % (auto) 0.2 %; Eosinophils # (auto) 0.12 K/uL (0-0.50); Eosinophils % (auto) 0.7 %; Immature Granulocytes # (auto) 0.06 K/uL (0.00-0.02); Immature Granulocytes % (auto) 0.3 %; Lymphocytes # (auto) 10.55 K/uL (1.2-3.4); Lymphocytes % (auto) 57.9 %; Monocytes # (auto) 1.64 K/uL (0.24-0.82); Neutrophils # (auto) 5.83 K/uL (1.4-6.5); Neutrophils % (auto) 31.9 %; Ovalocytes 1+
[2022-06-14] MEDS: RANOLAZINE 500 MG ER TAB PO SCH (08:27)
[2022-06-14] MEDS: INSULIN ASPART PER UNIT SC SCH ×2 (08:31→12:50)
[2022-06-14] MEDS ORDERED: VALSARTAN/SACUBITRIL 26/24MG TAB PO SCH (09:00)
[2022-06-14] MEDS ORDERED: GABAPENTIN 300 MG CAP PO SCH (09:00)
[2022-06-14] MEDS ORDERED: FUROSEMIDE 20 MG TAB PO SCH (09:00)
[2022-06-14] MEDS ORDERED: METOPROLOL SUCC 25MG EXT REL TAB PO SCH ×2 (09:00→21:00)
[2022-06-14] MEDS ORDERED: ATORVASTATIN 40 MG TAB PO SCH (09:00)
[2022-06-14] MEDS ORDERED: ASPIRIN 81 MG ECTAB PO SCH (09:00)
[2022-06-14] MEDS ORDERED: CHOLECALCIFEROL 1,000 UNITS 25 MCG TAB PO SCH (09:00)
[2022-06-14] MEDS: ALBUTEROL HFA 8 GM INHALER INH SCH ×2 (10:00→12:19)
[2022-06-14] MEDS ORDERED: Nursing to Pharmacy Communication SCH (10:45)
--- NOTE | 2022-06-14 12:28 | Hospitalist Progress Note ---
Date of Service June 14, 2022 Assessment & Plan (1) Bronchitis: Plan: - Likely bronchitis/bronchiolitis 2/2 rhino/enterovirus, low suspicion for acute bacterial pneumonia given afebrile, negative procalcitonin. However, low threshold to start antibiotic treatment if decompensation occurs - CT Chest- bronchial wall thickening of b/l lower lobes, mucus plugging, no focal consolidations suggestive of pneumonia - Continue supportive care at this time- discontinued scheduled duoneb, switched to albuterol inhaler q6h, flutter valve - WBC downtrending 23.5 to 18.23 today, afebrile - BCx negative at 24 hours - Stable respiratory status on RA at this time. Aim for d/c early in AM tomorrow pending pt stability and continued improvement - May discharge with a MYA/ICS/LABA (2) Type 2 diabetes mellitus with microalbuminuria: Plan: Controlled HGB a1c 6.7 - continue basal bolus insulin with Lantus 20units and aspart sliding scale CF 20 with ratio 1: 10 (3) Hypothyroidism: Plan: Continue with Synthroid (4) Elevated troponin: Plan: Troponin elevated 41.8 on admission, without chest pain or acute EKG changes. Likely demand ischemia. - Repeat troponin HS stable at 40 - Consider echocardiogram if ACS symptoms arise (5) CAD (coronary artery disease), [place] coronary artery: Plan: CAD with Anterior IA history with resulting ICM with HfrEF 30-35% in 06/03- - Cath 05.04 with 80% distal left main into proxiaml LAD - 90% D1 - Total occlusion of proximal with collaterals - Total occlusion of RCA with collaterals - Continue Entresto - Continue Statin - Continue ASA - Continue Lasix (6) Lumbar spinal stenosis: Plan: Chronic with RLS and nueropathy to feet - combination of above and DM - Continue with Gabapentin - Continue with Tylenol (7) Neuropathy: Plan: As above (8) Pacemaker: Plan: AICD - [employer] - BIv 2014 - DDD on the monitor with AV sense and AV paced (9) CLL (chronic lymphocytic leukemia): Plan: CLL in 2000 with development of Hodgkin's lymphoma in 2014 - underwent 5 cycles of chemotherapy ending in 2010 (R-CVP chemo) followed by radiation - Trial on ibrutinib but discontinued secondary to fatigue-- 201 progression of disease in 2015 revealed Hodgkin lymphoma - Hodgkin lymphoma treated with brentuximab - Trend CBC (10) Congestive heart failure (CHF): Plan: Chronic from ICM HFrEF as above - No acute exacerbation at this time (11) Lymphadenopathy: Plan: Mediastinal Lymphadenopathy - reported as stable when compared to 2020 - calcified mediastinal and hilar lymph nodes as well Admission and Anticipated Discharge Date Admission Date: June 13, 2022 Subjective No acute events overnight. Pt states he feels much better compared to admission. Denies dyspnea or chest pain. Still endorses some mild cough and congestion which is also improving. Denies any other acute complaints. Review of Systems Review of Systems: Per Subjective Physical Exam Physical Exam: General: awake, alert, no apparent distress HEENT: Normocephalic, atraumatic, no pharyngeal exudate, mucous membranes moist CV: RRR, normal S1/S2, no murmurs Resp: coarse breath sounds diffusely with expiratory wheezing, no increased work of breathing Extremities: no peripheral edema, distal LE pulses 2+, capillary refill <2s Results & Data Results & Data ([facility]) Vital Signs (Past 12 Hours) Vital Signs Temp Pulse Pulse Resp BP Pulse Ox O2 Del Method 06/14/22 11:06 36.9 C 64 18 100/56 L 94 Room Air 06/14/22 10:02 64 16 94 Room Air 06/14/22 09:36 64 06/14/22 09:36 Room Air 06/14/22 07:48 36.5 C 62 18 123/64 97 Room Air 06/14/22 07:11 64 16 95 Room Air 06/14/22 03:07 36.6 C 66 18 131/65 96 Room Air 06/14/22 00:29 60 18 93 Room Air Resident Activity Tracking Resident Involvement: Resident Care Provided Care Provided: Adult Hospital Medicine
--- NOTE | 2022-06-14 15:35 | Discharge Summary ---
Date of Service June 14, 2022 Admission HPI Per Admitting Provider 87 YOM with medical history of: PR, ICM, HFrEF, AICD, CAD, DM, PR, HLD, pneumonia, CLLL. Patient comes to the [facility] today for complaints of dyspnea over the past 2 weeks that has been getting progressively worse. He completed a course of Azithromycin and Prednisone by his PCP. He finished his steroids today. He states that about a week or so ago he had a "cold" that started with sinus congestion and then progressed into a cough. He is coughing up thick light yellow secretions. He denies any fever. He states that he also had some increase in leg swelling during that time so he has been taking double his Lasix oral dose at home - which would be 40mg that he was taking. This did not impact his breathing. In the EMD the patient had routine labs performed to include a HScTNI, CXR, CT non con of the ches, and respiratory BIOfire. He was given a dose of Cefepime and 1 albuterol nebulizer. Hospitalist was consulted for admission. Patient CT scan consistent with bronchitis/bronchiolitis and his biofire returned with entero virus. Paitient will be observed overnight with MYA nebulizers, Pulmicort, and flutter valve. Patient used to work in the [employer] for 20 years. He did not wear respirator during that time Admission Exam Per Admitting Provider PHYSICAL EXAM: General: awake, alert, no apparent distress Head: Normocephalic, atraumatic ENT: PERRL, EOMI, no pharyngeal exudate, mucous membranes moist Neuro: AAO x 3, speech clear and appropriate, strength intact bilaterally 5/5, sensation intact and equal all extremities and dermatomes, no pronator drift Chest: equal rise and fall of the chest, no accessory muscle use, inspiratory and expiratory wheezing, with scattered rhonchi, deep rasping cough Cardiac: Regular rate and rhythm, telemetry reviewed- AV paced, skin warm dry, cap refill <3 seconds, peripheral pulses +2 no JVD, no murmur, trace bilateral lower extremity edema GI: NABS x 4 quadrants, soft, nontender to palpation, no rebound, guarding or tenderness : Spontaneously voiding, no pain, no CVA tenderness, Extremities: Normal inspection, no peripheral edema or erythema, calfs nontender to palpation Psych: Normal mood and affect Skin: no rash or erythema Principal Diagnosis 30 Discharge Exam General: awake, alert, no apparent distress HEENT: Normocephalic, atraumatic, no pharyngeal exudate, mucous membranes moist CV: RRR, normal S1/S2, no murmurs Resp: coarse breath sounds diffusely with expiratory wheezing, no increased work of breathing Extremities: no peripheral edema, distal LE pulses 2+, capillary refill <2s Discharge Data Allergies Allergy/AdvReac Type Severity Reaction Status Date / Time levofloxacin Allergy Unknown UNKNOWN Verified 03/10/22 09:19 REACTION Consultations 06/13/22 12:00 ED Decision to Admit Stat Ordered Studies CT OF THE CHEST WITHOUT IV CONTRAST CLINICAL HISTORY: Shortness of breath. Cough. COMPARISON STUDY: Chest CT February 24, 2021. Chest radiograph performed earlier today. CT DOSE: 350.57 mGy.cm TECHNIQUE: Axial images of the chest were obtained without IV contrast. Images were reviewed in the axial, sagittal, and coronal planes. IV contrast was not administered for this examination. Automated exposure control was utilized for the study. A dose lowering technique was utilized adhering to the principles of ALARA. FINDINGS: Left subclavian biventricular pacer/AICD is in place. Extensive coronary calcification is present. 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 Mild cardiomegaly is noted. No pericardial effusion. No pneumothorax or pleural effusion. Bilateral lower lobe nodular thickening with mild mucus plugging is noted. Bilateral lower lobe airspace opacities are noted, including tree-in-bud nodules. No lobar consolidation is present. No central obstructing mass is present. No pneumothorax or pleural effusion. Calcified granulomas are incidentally noted. Mediastinal lymphadenopathy is similar to CT of February 24, 2021. Index right paratracheal lymph node measures 1.3 cm. Calcified mediastinal and right hilar lymph nodes are present. Gallstones within the gallbladder noted. Pancreatic calcifications are present. Pancreatic ductal dilatation is unchanged or minimally increased since abdominal CT of August 29, 2019. No acute fracture or suspicious lesion within visualized skeletal structures. IMPRESSION: 1. Bilateral lower lobe bronchial wall thickening, mucus plugging and airspace opacities with tree-in-bud nodules. The findings favor an infectious process such as bronchiolitis or developing bronchopneumonia. Although less likely, sequela of aspiration is also within the differential. 2. No significant change in mild thoracic lymphadenopathy. 3. Cholelithiasis. 4. Evidence for chronic pancreatitis. Stable to slight increase in pancreatic ductal dilatation. Hospital Course (1) Bronchitis: - Likely bronchitis/bronchiolitis 2/2 rhino/enterovirus, low suspicion for acute bacterial pneumonia given afebrile, negative procalcitonin. 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 Likely demand ischemia. - Repeat troponin HS stable at 40 (5) CAD (coronary artery disease), [place] coronary artery: CAD with Anterior PR history with resulting ICM with HfrEF 30-35% in 06/03- - Cath 05.04 with 80% distal left main into proximal LAD - 90% D1 - Total occlusion of proximal with collaterals - Total occlusion of RCA with collaterals - Continued Entresto - Continued Statin - Continued ASA - Continued Lasix (6) Lumbar spinal stenosis: Chronic with RLS and nueropathy to feet - combination of above and DM - Continued with Gabapentin - Continued with Tylenol (7) Neuropathy: As above (8) Pacemaker: AICD - [employer] - BIv 2014 - DDD on the monitor with AV sense and AV paced (9) CLL (chronic lymphocytic leukemia): CLL in 2000 with development of Hodgkin's lymphoma in 2014 - underwent 5 cycles of chemotherapy ending in 2010 (R-CVP chemo) followed by radiation - Trial on ibrutinib but discontinued secondary to fatigue-- 201 progression of disease in 2014 revealed Hodgkin lymphoma - Hodgkin lymphoma treated with brentuximab - WBC 18 on day of discharge (10) Congestive heart failure (CHF): Chronic from ICM HFrEF as above - No acute exacerbation at this time (11) Lymphadenopathy: Mediastinal Lymphadenopathy - reported as stable when compared to 202 - calcified mediastinal and hilar lymph nodes as well Total Time Total Time Spent Total Time Spent (In Minutes): 20 Discharge Plan Discharge Items Patient Disposition: Home - Self-Care Reason For Visit: DYSPNEA Discharge Diagnosis: Bronchitis Activity: Resume your previous activity Non-emergency contact: Primary Care Provider Call non-emergency contact if: you have any medication questions, your symptoms worsen and you have a fever Follow-up/Referrals: Obed Gómez MD [Primary Care Provider] - Diet: Heart Healthy Addtl Attending Provider Instructions: You were admitted to the hospital for bronchitis caused by the common cold virus. You were treated with nebulizers and inhalers. Your condition improved to the point you did not need any oxygen or antibiotics/steroids. Your body is still clearing the infection, so it may take some time until you are fully back to 100% health. A discharge summary will be sent to your primary care physician to ensure continuity of care. Please bring this discharge summary with you to your next office appointment so that your provider can review it at that time. Follow-up appointments: Make a follow-up appointment with your PCP within the next week. It is very important that you follow up with them shortly after discharge from the hospital. Medications: Your medication list has been reviewed and reconciled upon discharge to ensure accuracy and continuity of care. An updated list of all your medications is included with your hospital discharge paperwork. Please review this list closely, and make note of any changes. We gave you the albuterol you received in the hospital to take home on discharge. Please use albuterol (2 puffs) when you feel short of breath. Take your medications as instructed; do not skip a dose of your medicines. Make sure all of your doctors know every medicine you are taking (including lqdq-pca-lqpdkyz med icines, vitamins, and supplements). Call your primary care provider before taking any new medicines (including nihk-fly-hpjzyha medicines, vitamins, and supplements), because some of these may interact with your current medications, or may make your symptoms worse. Tell your primary care provider if you cannot afford your medications. CONTACT YOUR PRIMARY CARE PROVIDER if you experience any of the following: Difficulty breathing Fever Cough Nausea/vomiting Difficulty following your treatment plan, or difficulty taking medications CALL 911 OR GO TO THE EMERGENCY DEPARTMENT if you experience any of the following: Sudden, severe abdominal pain or nausea/vomiting Severe chest pain, or chest pain that radiates (moves) to your jaw or arm Sudden, severe shortness of breath or difficulty breathing Thank you for allowing us to participate in your care. Pending Studies at Discharge: No Stand-Alone Forms: My [facility], Smoking Cessation Medications and DC Order Prescriptions: Continued nitroglycerin 0.4 mg tablet, sublingual 0.4 mg SL .COMPLEX Qty: 25 3RF Rx Instructions: 0.4 mg SL EVERY 5 MINUTES FOR UP TO 2 DOSES PRN FOR CHEST PAIN. CALL 911 IF PAIN PERSISTS; (DME) pen needle, diabetic [1st Tier Unifine Pentips] 31 gauge x 1/4" needle See Rx Instructions .Route Qty: 200 5RF Rx Instructions: qid As directed furosemide 20 mg tablet 20 mg PO DAILY Qty: 90 3RF gabapentin 300 mg capsule 300 mg PO DAILY Qty: 30 2RF cholecalciferol (vitamin D3) 2,000 unit capsule 2,000 units PO DAILY Qty: 90 0RF cyanocobalamin (vitamin B-12) 1,000 mcg tablet 1,000 mcg PO DAILY Qty: 90 0RF ranolazine 500 mg tablet extended release 12 hr 500 mg PO BID Qty: 180 0RF ascorbic acid (vitamin C) 1,000 mg tablet 1 g PO DAILY albuterol sulfate 90 mcg/actuation HFA aerosol inhaler 2 puff INH Q4H PRN (Reason: shortness of breath or wheezing) Qty: 6.7 5RF Lantus Solostar U-100 Insulin 100 unit/mL (3 mL) insulin pen 28 unit SQ HS Qty: 15 11RF metoprolol succinate 25 mg tablet extended release 24 hr 25 mg PO DAILY levothyroxine 75 mcg capsule 75 mcg PO DAILY Qty: 90 3RF atorvastatin 40 mg tablet 40 mg PO DAILY Qty: 90 3RF Dulera 200-5 mcg/actuation HFA aerosol inhaler 2 puff inhalation BID Qty: 13 2RF magnesium oxide 400 mg magnesium tablet 300 mg PO DAILY Qty: 30 0RF Entresto 24-26 mg tablet 1 tab PO DAILY Qty: 30 2RF insulin lispro [Humalog KwikPen Insulin] 100 unit/mL insulin pen See Rx Instructions SQ TID Qty: 15 11RF Rx Instructions: 13U AM, 11U lunch, 20 U supper plus SS, max 50 units daily subcut three times a day; aspirin [Juan Low Dose Aspirin] 81 mg Tablet,Delayed Release (Dr/Ec) 81 mg PO DAILY Discontinued azithromycin 250 mg tablet 250 mg PO .COMPLEX MDD 2 5 Days Qty: 6 0RF Rx Instructions: 250 mg PO Two pills today pill daily for 4 more days.; prednisone 10 mg tablet 10 mg PO .COMPLEX 8 Days Qty: 20 0RF Rx Instructions: 4 for 2 days, 3 for 2 days, 2 for 2 days, 1 for 2 days then off.; Discharge Orders: Discharge Order (Routine); Ordered 06/14/22 Ordered By: Suresh Alvarez Admission Data Admit Date/Time: 06/13/22 12:45 Attending Provider: Elham Mejia Admit Provider: Bill Vasquez Primary Care Provider: Obed Gómez Other Providers: Bill Vasquez Other Interventions: Discharge Summary Assessment (RN) Last Done: 06/14/22 15:32 Supervising Physician Co-Signing Physician Notes I also saw the patient and confirmed ocononr portions of the history and exam. I agree with the impression and plan as noted above. Upon exam, he is without complaint and denies dyspnea. He is 96% on room air. He has been ambulatory from the bed to his bathroom without difficulty. Lungs are clear on inspiration, good air movement, with exp wheeze B/L. Labs show mild but improving leukocytosis, which likely due, in part, to outpatient steroids prior to admission. Given improvement and adequate oxygenation on room air, I think discharge is reasonable today. Discussed PCP follow up this week; sooner if symptoms worsen. Resident Activity Tracking Resident Involvement: Resident Care Provided Care Provided: Adult Hospital Medicine
[2022-06-15] MEDS ORDERED: ENOXAPARIN INJ 40 MG/0.4 ML SYR SQ SCH (09:00)
== END 2022-06-14 17:44 | disposition home or self-care (01) ==
LOC: 2W 09:10 → ED 09:10 → SUATTDRO 12:45 → 2W 13:57

== ENCOUNTER 2023-09-07 10:30 | Inpatient (IN) ==
[2023-09-07] MEDS ORDERED: SODIUM CHLORIDE 0.9% 1,000 ML IV ONE ×3 (11:08→12:57)
--- NOTE | 2023-09-07 11:28 | Emergency Department Note ---
History of Present Illness General Chief complaint: Weakness Time Seen by Provider: 09/07/23 11:07 History of Present Illness 88-year-old male presents emergency department with complaint of generalized weakness that started this morning. Patient was unable to get up from a chair. Patient reportedly has a history of hematuria he is currently being followed by urology Dr. Mccoy; he recently had an outpatient cystoscopy. He is scheduled for CT urogram. Patient states he has intermittent microscopic hematuria. Patient denies any chest pain shortness of breath abdominal pain nausea vomiting or blood in his stools. Patient states that he did not eat breakfast this morning. Patient denies headache slurred speech blurred vision. Patient states he had normal energy last night however this morning was unable to get up from a chair due to extreme weakness. Patient initially was found to be hypotensive in triage Home Medications Medication Instructions Recorded Confirmed Type cholecalciferol (vitamin D3) 50 2,000 units PO DAILY #90 caps 06/27/19 09/07/23 Rx mcg (2,000 unit) capsule cyanocobalamin (vitamin B-12) 1,000 mcg PO DAILY #90 tabs 06/27/19 09/07/23 Rx 1,000 mcg tablet aspirin 81 mg tablet,delayed 81 mg PO DAILY 02/23/21 09/07/23 History release (Juan Low Dose Aspirin) albuterol sulfate 90 mcg/actuation 2 puff inhalation Q4H PRN 03/19/21 09/07/23 Rx aerosol inhaler shortness of breath or wheezing #6.7 grams nitroglycerin 0.4 mg sublingual 0.4 mg sublingual .COMPLEX #25 tabs 03/23/21 09/07/23 Rx tablet magnesium oxide 300 mg PO DAILY #30 tabs 12/14/21 09/07/23 Rx sacubitril 24 mg-valsartan 26 mg 1 tab PO DAILY #30 tabs 12/14/21 09/07/23 Rx tablet (Entresto) nebulizers #1 ea 06/18/22 08/11/23 Rx ranolazine 1,000 mg 500 mg PO BID #60 tabs 08/20/22 09/07/23 Rx tablet,extended release,12 hr levothyroxine 75 mcg capsule 75 mcg PO DAILY #90 caps 10/04/22 09/07/23 Rx insulin lispro 100 unit/mL See Rx Instructions subcut TID #15 11/03/22 09/07/23 Rx subcutaneous pen (Humalog KwikPen mL (U-100) Insulin) insulin glargine 100 unit/mL (3 16 unit subcut HS 11/29/22 09/07/23 History mL) subcutaneous pen (Lantus Solostar U-100 Insulin) metoprolol succinate 25 mg 12.5 mg PO DAILY 11/29/22 09/07/23 History tablet,extended release 24 hr albuterol sulfate 1.25 mg/3 mL 1.25 mg (3 mL) inhalation QID PRN 04/12/23 09/07/23 Rx solution for nebulization shortness of breath or wheezing #90 mL glucagon 1 mg solution for 1 mg subcut Q20M PRN hypoglycemia 04/13/23 09/07/23 Rx injection (Glucagon Emergency Kit) #1 ea atorvastatin 40 mg tablet 40 mg PO DAILY #90 tabs 06/01/23 09/07/23 Rx pen needle, diabetic 31 gauge x #200 ea 08/31/23 Rx 1/4" (1st Tier Unifine Pentips) furosemide 20 mg tablet 20 mg PO DAILY 09/07/23 09/07/23 History gabapentin 300 mg capsule 300 mg PO PM 09/07/23 09/07/23 History Allergies Allergy/AdvReac Type Severity Reaction Status Date / Time levofloxacin Allergy Unknown UNKNOWN Verified 08/11/23 11:14 REACTION Past Med/Surg History Medical History Abnormal weight loss Acute renal failure KAYLI (acute kidney injury) Bronchitis CAD (coronary artery disease), [place] coronary artery Changing skin lesion Chronic obstructive pulmonary disease CLL (chronic lymphocytic leukemia) Close exposure to 2018- 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 Dyspnea on exertion Gross hematuria Hodgkin lymphoma Hypothyroidism Hypothyroidism Injury of right elbow Ischemic cardiomyopathy Left carpal tunnel syndrome Leg edema Lumbar spinal stenosis severe at L4-5 Lung infiltrate Lymphoma Memory loss Myocardial infarction Neuropathy Pacemaker Postherpetic neuralgia Rib pain Sepsis Solar keratosis Squamous cell skin cancer Excised from right forearm on June 21, 2022 Streptococcus pneumoniae pneumonia Type 2 diabetes mellitus with microalbuminuria Vitamin B 12 deficiency Surgical History History of carpal tunnel surgery of left wrist History of cataract surgery History of colonoscopy Hx of detached retina repair Status post placement of cardiac pacemaker Family History Sister Colon cancer Cancer Unknown No problems noted. Brother Cardiac disorder Cancer Father Cancer Mother Cardiac disorder Diabetes Hypertension Social History Smoking Status: Never smoker Second Hand Exposure: No; Do You Dip or Chew Tobacco: No; Hx Alcohol Use: No Hx Substance Use: No Preferred Language: Thai Communication Ability: Effective Visual Impairment: Limited Hearing Ability: Normal Pearl Stringer Required: No Beliefs That Will Affect Care: None marital status: Current Living Situation: Spouse current occupational status: retired Feels Safe at Home: Yes Childhood Exposure to Second-Hand Smoke: No Dental Care, Regularly: Yes Physical Activity Frequency: Daily Seatbelt Use: always Sunscreen Use: No Assistive Devices: Cane and Walker Review of Systems A total of 10 systems reviewed and were otherwise negative Respiratory: no cough Cardiovascular: no chest pain Gastrointestinal: no abdominal pain Genitourinary (Male): + hematuria Physical Exam Vital Signs Vital Signs - 24 hr 09/07/23 10:35 09/07/23 10:47 09/07/23 10:46 Temperature 37.2 C Temperature Source Temporal Artery Scan Pulse Rate 80 81 81 Pulse Rate [Apical] Pulse Rate from SpO2 Sensor Respiratory Rate 19 13 Blood Pressure 68/36 L Blood Pressure [Right Arm] Blood Pressure Mean 46 Blood Pressure Mean [Right Arm] Pulse Oximetry 89 L Oxygen Delivery Method Room Air Oxygen Flow Rate Sepsis Recent Fever Within 48 Hours No Sepsis New/Unexplained Change in Mental Status No Sepsis Action Taken by Nursing No Action Required Oxygen Flow Rate - Titration Pulse Oximetry Post Tiitration 09/07/23 10:47 09/07/23 10:47 09/07/23 10:55 Temperature Temperature Source Pulse Rate 81 76 Pulse Rate [Apical] Pulse Rate from SpO2 Sensor Respiratory Rate 18 18 Blood Pressure 87/41 L Blood Pressure [Right Arm] Blood Pressure Mean 54 Blood Pressure Mean [Right Arm] Pulse Oximetry Oxygen Delivery Method Oxygen Flow Rate Sepsis Recent Fever Within 48 Hours Sepsis New/Unexplained Change in Mental Status Sepsis Action Taken by Nursing Oxygen Flow Rate - Titration Pulse Oximetry Post Tiitration 09/07/23 10:55 09/07/23 11:04 09/07/23 11:31 Temperature Temperature Source Pulse Rate Pulse Rate [Apical] Pulse Rate from SpO2 Sensor Respiratory Rate Blood Pressure 90/40 L Blood Pressure [Right Arm] Blood Pressure Mean 60 Blood Pressure Mean [Right Arm] Pulse Oximetry 93 90 Oxygen Delivery Method Room Air Oxygen Flow Rate Sepsis Recent Fever Within 48 Hours Sepsis New/Unexplained Change in Mental Status Sepsis Action Taken by Nursing Oxygen Flow Rate - Titration 2 Pulse Oximetry Post Tiitration 96 09/07/23 11:00 09/07/23 11:00 09/07/23 11:10 Temperature Temperature Source Pulse Rate 74 74 Pulse Rate [Apical] Pulse Rate from SpO2 Sensor 74 73 Respiratory Rate 20 22 Blood Pressure 88/43 L Blood Pressure [Right Arm] Blood Pressure Mean 55 Blood Pressure Mean [Right Arm] Pulse Oximetry 92 93 Oxygen Delivery Method Oxygen Flow Rate 2 2 Sepsis Recent Fever Within 48 Hours Sepsis New/Unexplained Change in Mental Status Sepsis Action Taken by Nursing Oxygen Flow Rate - Titration Pulse Oximetry Post Tiitration 09/07/23 11:10 09/07/23 11:15 09/07/23 12:00 Temperature Temperature Source Pulse Rate 72 Pulse Rate [Apical] Pulse Rate from SpO2 Sensor 72 Respiratory Rate 18 Blood Pressure 88/43 L Blood Pressure [Right Arm] Blood Pressure Mean 66 Blood Pressure Mean [Right Arm] Pulse Oximetry 96 86 L Oxygen Delivery Method Room Air Oxygen Flow Rate 2 Sepsis Recent Fever Within 48 Hours Sepsis New/Unexplained Change in Mental Status Sepsis Action Taken by Nursing Oxygen Flow Rate - Titration Pulse Oximetry Post Tiitration 09/07/23 12:07 09/07/23 12:13 09/07/23 12:00 Temperature Temperature Source Pulse Rate Pulse Rate [Apical] 75 Pulse Rate from SpO2 Sensor Respiratory Rate 30 H Blood Pressure Blood Pressure [Right Arm] 78/49 L Blood Pressure Mean Blood Pressure Mean [Right Arm] 58 Pulse Oximetry 88 L 92 87 L Oxygen Delivery Method Nasal Cannula Nasal Cannula Room Air Oxygen Flow Rate 2 3 Sepsis Recent Fever Within 48 Hours Sepsis New/Unexplained Change in Mental Status Sepsis Action Taken by Nursing Oxygen Flow Rate - Titration Pulse Oximetry Post Tiitration 09/07/23 11:30 09/07/23 11:45 09/07/23 11:48 Temperature Temperature Source Pulse Rate 76 79 Pulse Rate [Apical] Pulse Rate from SpO2 Sensor 77 Respiratory Rate 31 H 24 Blood Pressure 87/48 L Blood Pressure [Right Arm] Blood Pressure Mean 64 Blood Pressure Mean [Right Arm] Pulse Oximetry 92 84 L Oxygen Delivery Method Oxygen Flow Rate Sepsis Recent Fever Within 48 Hours Sepsis New/Unexplained Change in Mental Status Sepsis Action Taken by Nursing Oxygen Flow Rate - Titration Pulse Oximetry Post Tiitration 09/07/23 11:48 09/07/23 12:00 09/07/23 12:00 Temperature Temperature Source Pulse Rate 79 76 Pulse Rate [Apical] Pulse Rate from SpO2 Sensor 79 76 Respiratory Rate 27 H 27 H Blood Pressure 78/41 L Blood Pressure [Right Arm] Blood Pressure Mean 51 Blood Pressure Mean [Right Arm] Pulse Oximetry 83 L 93 Oxygen Delivery Method Oxygen Flow Rate Sepsis Recent Fever Within 48 Hours Sepsis New/Unexplained Change in Mental Status Sepsis Action Taken by Nursing Oxygen Flow Rate - Titration Pulse Oximetry Post Tiitration 09/07/23 12:07 09/07/23 12:07 09/07/23 12:10 Temperature Temperature Source Pulse Rate 78 74 Pulse Rate [Apical] Pulse Rate from SpO2 Sensor 77 75 Respiratory Rate 29 H 31 H Blood Pressure 79/47 L Blood Pressure [Right Arm] Blood Pressure Mean 67 Blood Pressure Mean [Right Arm] Pulse Oximetry 91 91 Oxygen Delivery Method Oxygen Flow Rate Sepsis Recent Fever Within 48 Hours Sepsis New/Unexplained Change in Mental Status Sepsis Action Taken by Nursing Oxygen Flow Rate - Titration Pulse Oximetry Post Tiitration 09/07/23 12:10 09/07/23 12:13 09/07/23 12:13 Temperature Temperature Source Pulse Rate 75 Pulse Rate [Apical] Pulse Rate from SpO2 Sensor 75 Respiratory Rate 29 H Blood Pressure 76/48 L 76/41 L Blood Pressure [Right Arm] Blood Pressure Mean 60 59 Blood Pressure Mean [Right Arm] Pulse Oximetry 90 Oxygen Delivery Method Oxygen Flow Rate Sepsis Recent Fever Within 48 Hours Sepsis New/Unexplained Change in Mental Status Sepsis Action Taken by Nursing Oxygen Flow Rate - Titration Pulse Oximetry Post Tiitration 09/07/23 12:15 09/07/23 12:15 09/07/23 10:44 Temperature 38.4 C H Temperature Source Oral Pulse Rate 75 Pulse Rate [Apical] Pulse Rate from SpO2 Sensor Respiratory Rate 24 Blood Pressure 66/40 L Blood Pressure [Right Arm] Blood Pressure Mean 45 Blood Pressure Mean [Right Arm] Pulse Oximetry 94 Oxygen Delivery Method Oxygen Flow Rate Sepsis Recent Fever Within 48 Hours Sepsis New/Unexplained Change in Mental Status Sepsis Action Taken by Nursing Oxygen Flow Rate - Titration Pulse Oximetry Post Tiitration 09/07/23 12:30 09/07/23 11:03 09/07/23 12:27 Temperature 38.1 C H Temperature Source Oral Pulse Rate 75 Pulse Rate [Apical] 75 Pulse Rate from SpO2 Sensor 75 Respiratory Rate 31 H Blood Pressure Blood Pressure [Right Arm] 76/48 L Blood Pressure Mean Blood Pressure Mean [Right Arm] 57 Pulse Oximetry 99 Oxygen Delivery Method Oxygen Flow Rate Sepsis Recent Fever Within 48 Hours Sepsis New/Unexplained Change in Mental Status Sepsis Action Taken by Nursing Oxygen Flow Rate - Titration Pulse Oximetry Post Tiitration 09/07/23 12:27 09/07/23 12:30 09/07/23 12:30 Temperature Temperature Source Pulse Rate 73 Pulse Rate [Apical] Pulse Rate from SpO2 Sensor 73 Respiratory Rate 32 H Blood Pressure 86/43 L 79/46 L Blood Pressure [Right Arm] Blood Pressure Mean 57 56 Blood Pressure Mean [Right Arm] Pulse Oximetry 100 Oxygen Delivery Method Oxygen Flow Rate Sepsis Recent Fever Within 48 Hours Sepsis New/Unexplained Change in Mental Status Sepsis Action Taken by Nursing Oxygen Flow Rate - Titration Pulse Oximetry Post Tiitration 09/07/23 12:45 09/07/23 12:49 09/07/23 12:49 Temperature Temperature Source Pulse Rate 73 73 Pulse Rate [Apical] Pulse Rate from SpO2 Sensor 73 73 Respiratory Rate 31 H 30 H Blood Pressure 77/38 L Blood Pressure [Right Arm] Blood Pressure Mean 43 Blood Pressure Mean [Right Arm] Pulse Oximetry 99 99 Oxygen Delivery Method Oxygen Flow Rate Sepsis Recent Fever Within 48 Hours Sepsis New/Unexplained Change in Mental Status Sepsis Action Taken by Nursing Oxygen Flow Rate - Titration Pulse Oximetry Post Tiitration 09/07/23 12:50 09/07/23 12:50 09/07/23 13:00 Temperature Temperature Source Pulse Rate 73 Pulse Rate [Apical] Pulse Rate from SpO2 Sensor 73 Respiratory Rate 33 H Blood Pressure 84/45 L 72/46 L Blood Pressure [Right Arm] Blood Pressure Mean 59 57 Blood Pressure Mean [Right Arm] Pulse Oximetry 98 Oxygen Delivery Method Oxygen Flow Rate Sepsis Recent Fever Within 48 Hours Sepsis New/Unexplained Change in Mental Status Sepsis Action Taken by Nursing Oxygen Flow Rate - Titration Pulse Oximetry Post Tiitration 09/07/23 13:00 Temperature Temperature Source Pulse Rate 76 Pulse Rate [Apical] Pulse Rate from SpO2 Sensor 73 Respiratory Rate 27 H Blood Pressure Blood Pressure [Right Arm] Blood Pressure Mean Blood Pressure Mean [Right Arm] Pulse Oximetry 92 Oxygen Delivery Method Oxygen Flow Rate Sepsis Recent Fever Within 48 Hours Sepsis New/Unexplained Change in Mental Status Sepsis Action Taken by Nursing Oxygen Flow Rate - Titration Pulse Oximetry Post Tiitration GENERAL: Patient is awake alert in no acute distress patient is resting comfo rtably and showing no signs of anxiety; patient is alert, appears pale EYES: The conjunctivae are clear. The pupils are round and reactive. EARS, NOSE, MOUTH AND THROAT: The nose is without any evidence of any deformity. Mucous membranes are moist. Tongue is midline. NECK: The neck is nontender and supple. RESPIRATORY: Normal respiratory effort is noted there is no evidence of wheezing rhonchi or rales CARDIOVASCULAR: Regular rate and rhythm noted there no murmurs rubs or gallops normal S1 normal S2. GASTROINTESTINAL: The abdomen is soft. Abdomen is nontender. There are no palpable masses BACK: No midline tenderness or or step-off noted range of motion in flexion extension as well as rotation no signs of muscle spasm noted MUSCULOSKELETAL/EXTREMITIES: There is no evidence of gross deformity full range of motion is noted in the hips and shoulders. SKIN: There is no obvious evidence of any rash. There is pallor present; nailbed cyanosis is present NEUROLOGIC: Patient is awake alert and oriented x3 strength is symmetric Course Reevaluation(s) Reevaluation #1: Patient was given 3.5 L of IV fluids, patient's blood pressure with a manual blood pressure cuff is 80/40, the patient states that he feels much improved he is in no distress he has no current complaints he is not complaining of chest pain shortness of breath abdominal pain nausea vomiting. Patient states that he feels fine. Patient also mentioned that he may have a DO NOT RESUSCITATE order. He has family who are initially at bedside and I spoke with them are not currently at bedside due to the fact that they reportedly went home and take out a dog. Patient was also started on IV antibiotics during the emergency department evaluation as well as Tylenol. Time: 13:56 Consultations Consultation #1: Case was discussed with the [facility] hospitalist for admission Time: 01:25 Consultation #2: Case was discussed with the ICU physician sound assistant for further evaluation for ICU management Time: 13:55 Administered Medications Vancomycin HCl 1,750 mg/ (Sodium Chloride) 535 mls @ 200 mls/hr IV NOW ONE Stop: 09/07/23 15:05 Last Admin: 09/07/23 12:56 Dose: 200 mls/hr Documented By: ARA Sodium Chloride (Nss) 1,000 mls @ 999 mls/hr IV .Q1H1M ONE Stop: 09/07/23 13:57 Last Admin: 09/07/23 13:08 Dose: 999 mls/hr Documented By: ARA Discontinued Medications Acetaminophen (Acetaminophen 500 Mg Tab) 1,000 mg PO NOW STA Stop: 09/07/23 12:52 Last Admin: 09/07/23 13:15 Dose: 1,000 mg Documented By: ARA Sodium Chloride (Nss) 1,000 mls @ 999 mls/hr IV .Q1H1M ONE Stop: 09/07/23 12:08 Last Admin: 09/07/23 11:26 Dose: 999 mls/hr Documented By: ARA Piperacillin Sod/Tazobactam Sod (Zosyn) 4.5 gm in 100 mls @ 200 mls/hr IV NOW ONE Stop: 09/07/23 12:21 Last Admin: 09/07/23 12:10 Dose: 200 mls/hr Documented By: ERIC Sodium Chloride (Nss) 1,000 mls @ 999 mls/hr IV .Q1H1M ONE Stop: 09/07/23 13:24 Last Admin: 09/07/23 12:56 Dose: 999 mls/hr Documented By: ARA Critical Care Time Critical Care Time: Yes Total Critical Care Time: 35 I have personally spent greater than 35 minutes of critical care time in the direct management of this patient. This includes bedside care, interpretation of diagnostic studies, and testing, discussion with consultants, patient, and family members, and other required patient management activities. These minutes are in excess of all separately billable procedures. Medical Decision Making Medical Records Attestation: I reviewed the patient's medical records. Home Medications Current Medication List: was personally reviewed by me Laboratory Data Attestation: I reviewed the patient's lab results. Patient has an elevated white blood cell count, low hemoglobin, elevated creatinine, elevated lactate x2, elevated troponin x2 09/07/23 10:50 09/07/23 10:50 Lab Results 09/07/23 09/07/23 09/07/23 Range/Units 10:50 10:50 10:50 WBC 23.83 H (4.8-10.8) K/ul RBC 2.96 L (4.70-6.10) M/uL Hgb 9.3 L (14.0-18.0) g/dl Hct 28.9 L (42.0-52.0) % MCV 97.6 (80.0-100.0) fL MCH 31.4 (25.0-34.0) pg MCHC 32.2 (32.0-36.0) g/dL RDW Std Deviation 53.8 H (36.4-46.3) fL RDW Coeff of Real 15.2 H (11.5-14.5) % Plt Count 105 L (130-400) K/uL MPV 12.0 (9.4-12.4) fL Immature Gran % (Auto) 0.1 % Neut % (Auto) 14.8 % Lymph % (Auto) 67.9 % [place] % (Auto) 17.0 % Eos % (Auto) 0.0 % Baso % (Auto) 0.2 % Neut # (Auto) 3.52 (1.40-6.50) K/uL Lymph # (Auto) 16.19 H (1.20-3.40) K/uL [place] # (Auto) 4.05 H (0.11-0.59) K/uL Eos # (Auto) 0.00 (0.00-0.50) K/uL Baso # (Auto) 0.05 (0.00-0.20) K/uL Immature Gran # (Auto) 0.02 (0.01-0.20) K/uL Absolute Nucleated RBC 0.02 (0.00-0.12) K/uL Nucleated RBC % (auto) 0.1 % Smudge Cells Present Polychromasia 1+ Ovalocytes 1+ PT 11.9 (9.0-12.0) Seconds INR 1.1 (0.9-1.1) APTT 27.0 (21.0-31.0) Seconds PTT Ratio 1.0 Sodium 137 (136-145) mmol/L Potassium 4.1 (3.5-5.1) mmol/L Chloride 110 H (98-107) mmol/L Carbon Dioxide 17 L (21-32) mmol/L Anion Gap 10 (3-11) BUN 24 H (6-23) mg/dl Creatinine 1.88 H (0.6-1.4) mg/dl Est Cr Clr Drug Dosing Not Reportable Est GFR ( Amer) 36.1 ml/min Est GFR (Non-Af Amer) 31.2 ml/min BUN/Creatinine Ratio 12.8 (10-20) Glucose 161 H (70-99(Fasting)) mg/dl Lactate (0.4-2.0) mmol/L Calcium 8.0 L (8.6-10.3) mg/dl Magnesium 1.5 L (1.7-2.4) mg/dl Total Bilirubin 0.9 (0.2-1.0) mg/dl AST 15 (13-39) U/L ALT 12 (7-52) U/L Alkaline Phosphatase 85 (34-104) U/L Troponin I High Sens 827.9 H* (0-20) pg/ml Total Protein 5.3 L (6.0-8.3) gm/dl Albumin 3.4 (3.4-5.0) gm/dl Globulin 1.9 L (2.5-4.0) gm/dl Albumin/Globulin Ratio 1.8 (0.9-2) Procalcitonin (0-0.5) ng/ml SARS-CoV-2, RNA, NAAT (NEGATIVE) Blood Type Antibody Screen 09/07/23 09/07/23 09/07/23 Range/Units 10:50 10:57 11:35 WBC (4.8-10.8) K/ul RBC (4.70-6.10) M/uL Hgb (14.0-18.0) g/dl Hct (42.0-52.0) % MCV (80.0-100.0) fL MCH (25.0-34.0) pg MCHC (32.0-36.0) g/dL RDW Std Deviation (36.4-46.3) fL RDW Coeff of Real (11.5-14.5) % Plt Count (130-400) K/uL MPV (9.4-12.4) fL Immature Gran % (Auto) % Neut % (Auto) % Lymph % (Auto) % [place] % (Auto) % Eos % (Auto) % Baso % (Auto) % Neut # (Auto) (1.40-6.50) K/uL Lymph # (Auto) (1.20-3.40) K/uL [place] # (Auto) (0.11-0.59) K/uL Eos # (Auto) (0.00-0.50) K/uL Baso # (Auto) (0.00-0.20) K/uL Immature Gran # (Auto) (0.01-0.20) K/uL Absolute Nucleated RBC (0.00-0.12) K/uL Nucleated RBC % (auto) % Smudge Cells Polychromasia Ovalocytes PT (9.0-12.0) Seconds INR (0.9-1.1) APTT (21.0-31.0) Seconds PTT Ratio Sodium (136-145) mmol/L Potassium (3.5-5.1) mmol/L Chloride (98-107) mmol/L Carbon Dioxide (21-32) mmol/L Anion Gap (3-11) BUN (6-23) mg/dl Creatinine (0.6-1.4) mg/dl Est Cr Clr Drug Dosing Est GFR ( Amer) ml/min Est GFR (Non-Af Amer) ml/min BUN/Creatinine Ratio (10-20) Glucose (70-99(Fasting)) mg/dl Lactate 3.7 H* (0.4-2.0) mmol/L Calcium (8.6-10.3) mg/dl Magnesium (1.7-2.4) mg/dl Total Bilirubin (0.2-1.0) mg/dl AST (13-39) U/L ALT (7-52) U/L Alkaline Phosphatase (34-104) U/L Troponin I High Sens (0-20) pg/ml Total Protein (6.0-8.3) gm/dl Albumin (3.4-5.0) gm/dl Globulin (2.5-4.0) gm/dl Albumin/Globulin Ratio (0.9-2) Procalcitonin 14.85 H (0-0.5) ng/ml SARS-CoV-2, RNA, NAAT (NEGATIVE) Blood Type A Positive Antibody Screen NEGATIVE 09/07/23 09/07/23 09/07/23 Range/Units 12:15 12:41 12:41 WBC (4.8-10.8) K/ul RBC (4.70-6.10) M/uL Hgb (14.0-18.0) g/dl Hct (42.0-52.0) % MCV (80.0-100.0) fL MCH (25.0-34.0) pg MCHC (32.0-36.0) g/dL RDW Std Deviation (36.4-46.3) fL RDW Coeff of Real (11.5-14.5) % Plt Count (130-400) K/uL MPV (9.4-12.4) fL Immature Gran % (Auto) % Neut % (Auto) % Lymph % (Auto) % [place] % (Auto) % Eos % (Auto) % Baso % (Auto) % Neut # (Auto) (1.40-6.50) K/uL Lymph # (Auto) (1.20-3.40) K/uL [place] # (Auto) (0.11-0.59) K/uL Eos # (Auto) (0.00-0.50) K/uL Baso # (Auto) (0.00-0.20) K/uL Immature Gran # (Auto) (0.01-0.20) K/uL Absolute Nucleated RBC (0.00-0.12) K/uL Nucleated RBC % (auto) % Smudge Cells Polychromasia Ovalocytes PT (9.0-12.0) Seconds INR (0.9-1.1) APTT (21.0-31.0) Seconds PTT Ratio Sodium (136-145) mmol/L Potassium (3.5-5.1) mmol/L Chloride (98-107) mmol/L Carbon Dioxide (21-32) mmol/L Anion Gap (3-11) BUN (6-23) mg/dl Creatinine (0.6-1.4) mg/dl Est Cr Clr Drug Dosing Est GFR ( Amer) ml/min Est GFR (Non-Af Amer) ml/min BUN/Creatinine Ratio (10-20) Glucose (70-99(Fasting)) mg/dl Lactate 4.1 H* (0.4-2.0) mmol/L Calcium (8.6-10.3) mg/dl Magnesium (1.7-2.4) mg/dl Total Bilirubin (0.2-1.0) mg/dl AST (13-39) U/L ALT (7-52) U/L Alkaline Phosphatase (34-104) U/L Troponin I High Sens 1167.1 H* D (0-20) pg/ml Total Protein (6.0-8.3) gm/dl Albumin (3.4-5.0) gm/dl Globulin (2.5-4.0) gm/dl Albumin/Globulin Ratio (0.9-2) Procalcitonin (0-0.5) ng/ml SARS-CoV-2, RNA, NAAT NEGATIVE (NEGATIVE) Blood Type Antibody Screen Imaging Data Attestation: I personally reviewed and interpreted this imaging study as follows: My Impression: Chest x-ray interpreted by me right lower lobe pneumonia Radiologist's Impression: Chest X-Ray 09/07/23 11:03 XR chest 1V portable CLINICAL HISTORY: Sepsis. COMPARISON STUDY: Chest radiograph June 13, 2022. Chest CT April 27, 2023. FINDINGS: A left subclavian biventricular pacer/AICD remains in place. There is no pneumothorax. Suspected small right pleural effusion is noted. Asymmetric interstitial thickening and airspace opacities within the right lower lung are noted. Cardiomediastinal silhouette is stable. IMPRESSION: Asymmetric interstitial thickening and airspace opacities within the right mid and lower lung. The findings favor pneumonia. However, asymmetric pulmonary edema could appear similar. Radiographic follow-up to ensure resolution is recommended. ACT 112: Negative or not required by law. Electronically signed by: Camron Santos M.D. 09/07/2023 1:25 PM ECG Data Attestation: I personally reviewed and interpreted this ECG as follows: MDM Narrative Medical decision making differential diagnosis includes sepsis, urinary tract infection, anemia, electrolyte abnormality, dehydration, deconditioning Plan is to check sepsis labs, give IV fluids, check type and screen External medical records were reviewed by me and include a cystoscopy note from Dr. Mccoy on August 26, 2023 Patient states that his blood pressure is typically 90/40. Patient recently had a cystoscopy for bladder cancer and microscopic hematuria. This was approximately 10 days ago. Patient was in his normal state of health until this morning. Patient during the emergency department evaluation had elevated lactate above 2 was started on 30 mL/kg of IV saline, patient was treated with 2 antibiotics, Tylenol, oxygen, his EKG is paced he does not have any current chest pain although he has an elevation in his troponin this may be due to sepsis he has an elevated procalcitonin as well. The concern is for severe sepsis at this time and the patient will be admitted to the hospitalist program with admission to the ICU Impression & Plan Severe sepsis, Anemia, Pneumonia, KAYLI (acute kidney injury) Discharge Plan Visit Data Chief Complaint: Weakness ED Provider: Yariel Veloz Discharge Problem: Severe sepsis, Anemia, Pneumonia, KAYLI (acute kidney injury) Patient Disposition: Admitted As Inpatient Forms Stand Alone Forms: [facility] [employer] Prescriptions Prescriptions: No Action nitroglycerin 0.4 mg tablet, sublingual 0.4 mg SL .COMPLEX Qty: 25 3RF Rx Instructions: 0.4 mg SL EVERY 5 MINUTES FOR UP TO 2 DOSES PRN FOR CHEST PAIN. CALL 911 IF PAIN PERSISTS; levothyroxine 75 mcg capsule 75 mcg PO DAILY Qty: 90 3RF insulin lispro [Humalog KwikPen Insulin] 100 unit/mL insulin pen See Rx Instructions SQ TID Qty: 15 11RF Rx Instructions: 13U AM, 12U lunch, 12 U supper plus SS, max 50 units daily subcut three times a day; albuterol sulfate 1.25 mg/3 mL solution for nebulization 1.25 mg inhalation QID PRN (Reason: shortness of breath or wheezing) Qty: 90 5RF Glucagon Emergency Kit (human) 1 mg recon soln 1 mg subcut Q20M PRN (Reason: hypoglycemia) Qty: 1 3RF Rx Instructions: until target blood sugar attained atorvastatin 40 mg tablet 40 mg PO DAILY Qty: 90 3RF (DME) pen needle, diabetic [1st Tier Unifine Pentips] 31 gauge x 1/4" needle See Rx Instructions .Route Qty: 200 5RF Rx Instructions: qid As directed cholecalciferol (vitamin D3) 2,000 unit capsule 2,000 units PO DAILY Qty: 90 0RF cyanocobalamin (vitamin B-12) 1,000 mcg tablet 1,000 mcg PO DAILY Qty: 90 0RF albuterol sulfate 90 mcg/actuation HFA aerosol inhaler 2 puff INH Q4H PRN (Reason: shortness of breath or wheezing) Qty: 6.7 5RF (DME) nebulizers Misc See Rx Instructions .Route Qty: 1 0RF Rx Instructions: As directed J44.9 insulin glargine [Lantus Solostar U-100 Insulin] 100 unit/mL (3 mL) insulin pen 16 unit SQ HS metoprolol succinate 25 mg tablet extended release 24 hr 12.5 mg PO DAILY magnesium oxide 400 mg magnesium tablet 300 mg PO DAILY Qty: 30 0RF Entresto 24-26 mg tablet 1 tab PO DAILY Qty: 30 2RF ranolazine 1,000 mg tablet extended release 12 hr 500 mg PO BID Qty: 60 0RF aspirin [Juan Low Dose Aspirin] 81 mg Tablet,Delayed Release (Dr/Ec) 81 mg PO DAILY gabapentin 300 mg capsule 300 mg PO PM Patient Comments: per pt hes down to 300 mg daily in the evening Rx Instructions: per pt he takes 300 mg once in the pm instead of 600 mg furosemide 20 mg tablet 20 mg PO DAILY Rx Instructions: per pt he takes 20 mg instead of 40 mg Referrals Referrals: Obed Gómez MD [Primary Care Provider] -
[2023-09-07 11:42] LABS: Albumin Level 3.4 gm/dl (3.4-5.0); Anion Gap 10 (3-11); Bilirubin,Total 0.9 mg/dl (0.2-1.0); Carbon Dioxide 17 mmol/L (21-32); Chloride 110 mmol/L (98-107); Hematocrit (blood only) 28.9 % (42.0-52.0); Hemoglobin 9.3 g/dl (14.0-18.0); Magnesium 1.5 mg/dl (1.7-2.4); Mean Corpuscular Hemoglobin 31.4 pg (25.0-34.0); Mean Corpuscular Hgb Conc 32.2 g/dL (32.0-36.0); Mean Corpuscular Volume 97.6 fL (80.0-100.0); Platelet Count 105 K/uL (130-400); Potassium 4.1 mmol/L (3.5-5.1); RDW Coefficient of Variation 15.2 % (11.5-14.5); RDW Standard Deviation 53.8 fL (36.4-46.3); Red Blood Count 2.96 M/uL (4.70-6.10); Sodium 137 mmol/L (136-145)
[2023-09-07 11:48] LABS: Alanine Aminotransferase 12 U/L (7-52); Albumin Globulin Ratio 1.8 (0.9-2); Alkaline Phosphatase 85 U/L (34-104); Aspartate Aminotransferase 15 U/L (13-39); BUN Creatinine Ratio 12.8 (10-20); Blood Urea Nitrogen 24 mg/dl (6-23); Est GFR (African American) 36.1 ml/min; Est GFR (Non-African American) 31.2 ml/min; Globulin 1.9 gm/dl (2.5-4.0); Glucose 161 mg/dl (70-99(Fasting)); Total Protein 5.3 gm/dl (6.0-8.3)
[2023-09-07 11:52] LABS: INR 1.1 (0.9-1.1); Prothrombin Time 11.9 Seconds (9.0-12.0)
[2023-09-07] MEDS ORDERED: PIPERACILLIN/TAZOBACTAM 4.5 GM/100 ML BAG IV ONE (11:52)
[2023-09-07 11:58] LABS: Troponin I High Sensitivity 827.9 pg/ml (0-20)
[2023-09-07] MEDS ORDERED: VANCOMYCIN CONSULT ACTIVE PRN ×2 (12:25→16:14)
[2023-09-07] MEDS ORDERED: VANCOMYCIN HCL 1,750 MG in SODIUM CHLORIDE 0.9% 500 ML IV ONE (12:25)
[2023-09-07 12:44] LABS: Basophils # (auto) 0.05 K/uL (0.00-0.20); Basophils % (auto) 0.2 %; Immature Granulocytes # (auto) 0.02 K/uL (0.01-0.20); Immature Granulocytes % (auto) 0.1 %; Lymphocytes # (auto) 16.19 K/uL (1.20-3.40); Lymphocytes % (auto) 67.9 %; Monocytes # (auto) 4.05 K/uL (0.11-0.59); Neutrophils # (auto) 3.52 K/uL (1.40-6.50); Neutrophils % (auto) 14.8 %; Nucleated RBC # (auto) 0.02 K/uL (0.00-0.12); Nucleated RBC % (auto) 0.1 %; Ovalocytes 1+; Polychromasia 1+; Smudge Cells Present; White Blood Count 23.83 K/ul (4.8-10.8)
[2023-09-07] MEDS ORDERED: ACETAMINOPHEN 500 MG TAB PO STA (12:51)
--- NOTE | 2023-09-07 13:26 | XRay Report ---
XR chest 1V portable CLINICAL HISTORY: Sepsis. COMPARISON STUDY: Chest radiograph June 13, 2022. Chest CT April 27, 2023. FINDINGS: A left subclavian biventricular pacer/AICD remains in place. There is no pneumothorax. Susp ected small right pleural effusion is noted. Asymmetric interstitial thickening and airspace opacitie s within the right lower lung are noted. Cardiomediastinal silhouette is stable. IMPRESSION: Asymmetric interstitial thickening and airspace opacities within the right mid and lower lung. The findings favor pneumonia. However, asymmetric pulmonary edema could appear similar. Radiogr aphic follow-up to ensure resolution is recommended. ACT 112: Negative or not required by law. Electronically signed by: Camron Santos M.D. 09/07/2023 1:25 PM
--- NOTE | 2023-09-07 14:03 | History & Physical Report ---
Date of Service September 07, 2023 Assessment & Plan (1) Severe sepsis: Plan: Severe sepsis, suspect pneumonia. DDx includes urosepsis Endorses shortness of breath and some slight cough. Predominant presenting symptom was global weakness limiting his ability to stand. Denies dysuria or sputum change. Denies fever/chills. Leukocytosis, although limited by background of CLL with differential ordered at time of admission consultation CXR favoring right-sided pneumonia. PCT is elevated Received Zosyn/Vanco while in the ER. We will continue cefepime/vancomycin on admission. MRSA nares pending Lactate 3.7, uptrending at 4.1. High-sensitivity troponin 827, uptrending 1167 without chest pain. Received 3.5 L NSS in ER, patient has developed worsening shortness of breath, wet sounding crackles, and increased hypoxia. History of CHF EF approximately 30%. Remains hypotensive with uptrending biomarkers despite fluid resuscitation and initial antibiotics. Shows evidence of developing pulmonary edema and has 1+ lower extremity edema Norepinephrine ordered, IV team contacted for additional access Recommended ICU admission 2/2 pressors Patient has had persistent hematuria with 2X cystoscopies with normal findings, pending MRI for further evaluation. He denies urinary symptom Random cortisol pending, patient denies recent steroid use. If suppressed +methylpred daily (2) Pneumonia: Plan: As noted (3) KAYLI (acute kidney injury): Plan: KAYLI on CKD Baseline creatinine around 1.55, acutely elevated 1.88 on admission In the setting of sepsis, suspect Received fluids as noted, show signs of developing fluid overload Trend BMP daily, renally dosed medication (4) Gross hematuria: Plan: - Villareal placed, brisk output of sanguinous urine. Urology following as outpatient as noted. No dysuria. 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 May convert to basal bolus based on basal requirement of 16 units after downgrade (7) CAD (coronary artery disease), [facility] coronary artery: Plan: With evidence of acute heart failure with reduced ejection fraction on admit Patient on adjunct pressors as noted -Trop uptrending, every 6 hours trend added. Patient remains chest pain-free EK AV paced Limited echo for wall motion change pending Continue metoprolol when blood pressure permits Isosorbide held for hypotension Continue aspirin daily Continue atorvastatin, no transaminitis on admission Entresto held for KAYLI and hypotension (8) CLL (chronic lymphocytic leukemia): Plan: With history of both CLL and Hodgkin's lymphoma, patient reports he has relapsed CLL not on active treatment and under monitoring Differential of initial CBC which is leukocytosis is pending (9) Hyperlipidemia: Plan: Statin as noted Plan DVT prophylaxis: Heparin due to KAYLI Disposition: ICU CODE STATUS: DNR/DNI. patient does want for intubation for temporization of declining respiratory status but would not want this long-term and does not want intubation or CPR in the center of a complete cardiac or respiratory arrest History of Present Illness Primary Care Provider: Obed Gómez MD Carson Alvarado is an 88-year-old male who presents to the ER with weakness and hematuria. Patient presents the ER and was found to be hypotensive. . Echo 11/2021: EF 25-29%. Large wall motion abnormality. Chest x-ray: Interstitial thickening and airspace opacity of the right mid and lower lung favoring pneumonia, asymmetric pulmonary edema is within the differential hypotensive Lactate 3.7 increasing to 4.1 trop 827 --> 1167 PCT 14.85 KAYLI baseline Cr ~1.5, 1.88 on admit H Cardiology: severel eft main and triple vessel CAD Received 3.5 L of crystalloid in ER (30cc/kg = 2550), remains hypotensive with uptrending biomarkers. +O2, uptrending. Carson reports he lives in a home with his . Was so tired and weak he could not standing this morning. [place] normal last evening. Overnight felt more tired, tried to get up once or twice and couldn't get up/stand due to weakness. Denies chest pain, denies chest pressure. Denies dyspnea last night. Developed crackles and shortness of breath in the last hour since being in the ER. Feels his breathing is starting to get worse with 'a rattle in my throat' in the last few hours and currenly feels short of breath. No fevers or chills last few days No dysuria prior to coming in. Peed normally last night, has been bloody.Had s cysto with Urology which was unremarkable 2 weeks ago, and also has an unrema rkable cysto in the spring per pt. Is pending MRI for followup of hematuria. Denies pelvic pain or pressure. Endorses hx of heart failure s/p 3 stents, denies hx of bipass/surgery. Pt reprots has 2 known residual blockages. Reports a history of chemotherapy for cancer, pt reports he had both CLL and then Hodgkins and due to this is not a candidate for bypass sx. Reports CLL has recurred and is being monitored. No active tx. Pt takes lasix for CHF, did not take any medications thi smorning. Takes glargine 16u, + sliding scale lispro. Has a pacemaker. Reports he is not sure why. Medical History: Reviewed Medications: Reviewed Surgical History: Reviewed Family history: Reviewed Allergies: Reviewed Social History: Denies tobacco/alcohol Code Status: DNR/DNI. Reports he would not want brought back if he were so ill that he were to undergo a complete cardiac or respiratory arrest. He would want a trial of intubation for declining respiratory status if this could help get him through a reversible condition such as pneumonia. Allergies Allergy/AdvReac Type Severity Reaction Status Date / Time levofloxacin Allergy Unknown UNKNOWN Verified 08/11/23 11:14 REACTION Home Medications Medication Instructions Recorded Confirmed Type cholecalciferol (vitamin D3) 50 2,000 units PO DAILY #90 caps 06/27/19 09/07/23 Rx mcg (2,000 unit) capsule cyanocobalamin (vitamin B-12) 1,000 mcg PO DAILY #90 tabs 06/27/19 09/07/23 Rx 1,000 mcg tablet aspirin 81 mg tablet,delayed 81 mg PO DAILY 02/23/21 09/07/23 History release (Juan Low Dose Aspirin) albuterol sulfate 90 mcg/actuation 2 puff inhalation Q4H PRN 03/19/21 09/07/23 Rx aerosol inhaler shortness of breath or wheezing #6.7 grams nitroglycerin 0.4 mg sublingual 0.4 mg sublingual .COMPLEX #25 tabs 03/23/21 09/07/23 Rx tablet magnesium oxide 300 mg PO DAILY #30 tabs 12/14/21 09/07/23 Rx sacubitril 24 mg-valsartan 26 mg 1 tab PO DAILY #30 tabs 12/14/21 09/07/23 Rx tablet (Entresto) nebulizers #1 ea 06/18/22 08/11/23 Rx ranolazine 1,000 mg 500 mg PO BID #60 tabs 08/20/22 09/07/23 Rx tablet,extended release,12 hr levothyroxine 75 mcg capsule 75 mcg PO DAILY #90 caps 10/04/22 09/07/23 Rx insulin lispro 100 unit/mL See Rx Instructions subcut TID #15 11/03/22 09/07/23 Rx subcutaneous pen (Humalog KwikPen mL (U-100) Insulin) insulin glargine 100 unit/mL (3 16 unit subcut HS 11/29/22 09/07/23 History mL) subcutaneous pen (Lantus Solostar U-100 Insulin) metoprolol succinate 25 mg 12.5 mg PO DAILY 11/29/22 09/07/23 History tablet,extended release 24 hr albuterol sulfate 1.25 mg/3 mL 1.25 mg (3 mL) inhalation QID PRN 04/12/23 09/07/23 Rx solution for nebulization shortness of breath or wheezing #90 mL glucagon 1 mg solution for 1 mg subcut Q20M PRN hypoglycemia 04/13/23 09/07/23 Rx injection (Glucagon Emergency Kit) #1 ea atorvastatin 40 mg tablet 40 mg PO DAILY #90 tabs 06/01/23 09/07/23 Rx pen needle, diabetic 31 gauge x #200 ea 08/31/23 Rx 1/4" (1st Tier Unifine Pentips) furosemide 20 mg tablet 20 mg PO DAILY 09/07/23 09/07/23 History gabapentin 300 mg capsule 300 mg PO PM 09/07/23 09/07/23 History Past Med/Surg History Medical History Abnormal weight loss Acute renal failure KAYLI (acute kidney injury) Bronchitis CAD (coronary artery disease), [facility] coronary artery Changing skin lesion Chronic obstructive pulmonary disease CLL (chronic lymphocytic leukemia) Close exposure to 2018- 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 Dyspnea on exertion Gross hematuria Hodgkin lymphoma Hypothyroidism Hypothyroidism Injury of right elbow Ischemic cardiomyopathy Left carpal tunnel syndrome Leg edema Lumbar spinal stenosis severe at L4-5 Lung infiltrate Lymphoma Memory loss Myocardial infarction Neuropathy Pacemaker Postherpetic neuralgia Rib pain Sepsis Solar keratosis Squamous cell skin cancer Excised from right forearm on June 21, 2022 Streptococcus pneumoniae pneumonia Type 2 diabetes mellitus with microalbuminuria Vitamin B 12 deficiency Surgical History History of carpal tunnel surgery of left wrist History of cataract surgery History of colonoscopy Hx of detached retina repair Status post placement of cardiac pacemaker Family History Sister Colon cancer Cancer Unknown No problems noted. Brother Cardiac disorder Cancer Father Cancer Mother Cardiac disorder Diabetes Hypertension Social History Smoking Status: Never smoker Second Hand Exposure: No; Do You Dip or Chew Tobacco: No; Hx Alcohol Use: No Hx Substance Use: No Preferred Language: Thai Communication Ability: Effective Visual Impairment: Limited Hearing Ability: Normal Supervisor Lump Room Required: No Beliefs That Will Affect Care: None marital status: Current Living Situation: Spouse current occupational status: retired Feels Safe at Home: Yes Childhood Exposure to Second-Hand Smoke: No Dental Care, Regularly: Yes Physical Activity Frequency: Daily Seatbelt Use: always Sunscreen Use: No Assistive Devices: Cane and Walker Physical Exam Physical Exam: General: A&Ox3. NAD. Cooperative. HEENT: Atraumatic, normocephalic. Vision/hearing grossly intact Pulm: Coarse, diminished in the bases, diffuse crackles/rhonchi. symmetrical chest rise. No increased work of breathing. No respiratory distress. Cardiac: RRR, +sm. Radial pulses intact and symmetrical. Abdominal: Nontender, nondistended, soft. BS present. Extremities:1+ ankle edema bilaterally. Moves upper and lower extremities equally Results & Data Results & Data Vital Signs (Past 12 Hours) Vital Signs Temp Pulse Pulse Resp BP BP Pulse Ox 09/07/23 13:00 76 27 H 92 09/07/23 13:00 72/46 L 09/07/23 12:50 73 33 H 98 09/07/23 12:50 84/45 L 09/07/23 12:49 73 30 H 99 09/07/23 12:49 77/38 L 09/07/23 12:45 73 31 H 99 09/07/23 12:30 73 32 H 100 09/07/23 12:30 79/46 L 09/07/23 12:27 86/43 L 09/07/23 12:27 75 31 H 99 09/07/23 11:03 38.1 C H 09/07/23 12:30 75 76/48 L 09/07/23 10:44 38.4 C H 09/07/23 12:15 75 24 94 09/07/23 12:15 66/40 L 09/07/23 12:13 75 29 H 90 09/07/23 12:13 76/41 L 09/07/23 12:10 76/48 L 09/07/23 12:10 74 31 H 91 09/07/23 12:07 78 29 H 91 09/07/23 12:07 79/47 L 09/07/23 12:00 76 27 H 93 09/07/23 12:00 78/41 L 09/07/23 11:48 79 27 H 83 L 09/07/23 11:48 87/48 L 09/07/23 11:45 79 24 84 L 09/07/23 11:30 76 31 H 92 09/07/23 12:00 75 30 H 78/49 L 87 L 09/07/23 12:13 92 09/07/23 12:07 88 L 09/07/23 12:00 86 L 09/07/23 11:15 72 18 96 09/07/23 11:10 88/43 L 09/07/23 11:10 74 22 93 09/07/23 11:00 74 20 92 09/07/23 11:00 88/43 L 09/07/23 11:31 90 09/07/23 11:04 93 09/07/23 10:55 90/40 L 09/07/23 10:55 76 18 09/07/23 10:47 81 18 09/07/23 10:47 87/41 L 09/07/23 10:46 81 13 09/07/23 10:47 81 09/07/23 10:35 37.2 C 80 19 68/36 L 89 L O2 Del Method O2 Flow Rate 09/07/23 13:00 09/07/23 13:00 09/07/23 12:50 09/07/23 12:50 09/07/23 12:49 09/07/23 12:49 09/07/23 12:45 09/07/23 12:30 09/07/23 12:30 09/07/23 12:27 09/07/23 12:27 09/07/23 11:03 09/07/23 12:30 09/07/23 10:44 09/07/23 12:15 09/07/23 12:15 09/07/23 12:13 09/07/23 12:13 09/07/23 12:10 09/07/23 12:10 09/07/23 12:07 09/07/23 12:07 09/07/23 12:00 09/07/23 12:00 09/07/23 11:48 09/07/23 11:48 09/07/23 11:45 09/07/23 11:30 09/07/23 12:00 Room Air 09/07/23 12:13 Nasal Cannula 3 09/07/23 12:07 Nasal Cannula 2 09/07/23 12:00 Room Air 09/07/23 11:15 2 09/07/23 11:10 09/07/23 11:10 2 09/07/23 11:00 2 09/07/23 11:00 09/07/23 11:31 Room Air 09/07/23 11:04 09/07/23 10:55 09/07/23 10:55 09/07/23 10:47 09/07/23 10:47 09/07/23 10:46 09/07/23 10:47 09/07/23 10:35 Room Air PG Care Time/CCT Total # of Minutes Spent Total Time Spent with Patient: Total time spent is greater than 50% in coordination of care (as documented) at patient's floor/unit and/or counseling patient: Coding Level of Care Code 90438 INT INP/OBS CARE 3/75MIN Diagnoses Severe sepsis A41.9; R65.20 Pneumonia J18.9 KAYLI (acute kidney injury) N17.9 Gross hematuria R31.0 Chronic obstructive pulmonary disease J44.9 Type 2 diabetes mellitus with microalbuminuria E11.29; R80.9 CAD (coronary artery disease), [facility] coronary artery I25.10 CLL (chronic lymphocytic leukemia) C91.90 Hyperlipidemia E78.5
[2023-09-07 14:17] LABS: Appearance Urine Turbid (Clear); Bilirubin Urine 1+ (Negative); Blood Urine 3+ (Negative); Color Urine Brown; Glucose Urine UA Negative (Negative); Ketones Urine Trace (Negative); Leukocyte Esterase Urine Negative (Negative); Nitrite Urine Negative (Negative); Protein Urine 3+ (Negative); Urobilinogen Urine Negative (Negative); pH Urine 5.5 (4.5-7.5)
[2023-09-07 14:27] LABS: RBC Urine >30 /hpf (0-4)
[2023-09-07 14:28] LABS: Bacteria Urine 1+ (Negative)
[2023-09-07] MEDS ORDERED: STAT IV Infusion **Titration per Protocol STA ×2 (14:39→17:12)
[2023-09-07] MEDS: NOREPINEPHRINE/D5W 4 MG/250 ML PLCT IV SCH ×2 (15:11→20:56)
--- NOTE | 2023-09-07 15:32 | Critical Care Consultation ---
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 NEURO - * CAM ICU: NEGATIVE CARDIAC/VASCULAR - * Hypotension: * In the setting of severe sepsis with septic shock. * Initially received aggressive fluid resuscitation in the emergency department. * Patient now requiring vasopressors. * Currently on Levophed. Will add vasopressin if pressor requirement continues to escalate. * Will check random cortisol. * Elevated troponin: * Likely in the setting of demand ischemia in the patient with prior history of ischemic cardiomyopathy and coronary disease. * Patient without complaints of chest discomfort at this time. * Continue to trend troponins to peak. * Ischemic cardiomyopathy: * Patient with an EF of 25 to 29% in 2021. * AICD in place. * Acute CHF exacerbation: * Likely secondary to aggressive volume resuscitation. * Hopefully patient will improve with improved forward flow with the addition of vasopressors. * Consider the need for PPV if needed to aid in breathing. * EKG: Paced rhythm at 73 bpm. * Monitor on telemetry. RESPIRATORY - * RIGHT lower lobe infiltrate: * In review of patient's chart, the patient presented similarly to [facility] in November for similar presentation with findings of RIGHT lower lobe infiltrate and found sepsis. * Currently on cefepime and vancomycin. * Patient denies any recent aspiration or vomiting. 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 * Hypoxia: * Breathing has worsened after administration of IV fluid. Question volume overload in the patient with ischemic cardiomyopathy. * May require PPV necessary. * Continue to provide supplemental oxygen as needed. GI/NUTRITION - * N.p.o. in the setting of pressor requirement * Patient would likely benefit from swallow study given this recurrence of RIGHT lower lobe infiltrative findings. * Prophylaxis: Famotidine RENAL/LYTES - * KAYLI on what appears to be CKD: * Likely prerenal in the setting of profound hypotension and sepsis. * Continue to monitor renal function. * Strict I&O's. * Hold on additional IV fluids in the setting of volume overload currently. - * Donovan hematuria: * Patient has been extensively evaluated by urology including 2 separate cystoscopies. * Urinalysis with microbiology pending, however findings with significant red blood cell volume. * Currently covered with antibiotics regardless. * Consider having urology weigh in urine cultures. * Low threshold for CT abdomen pelvis pending patient's clinical response. Patient to unstable at this time to undergo CT scan. * Villareal in place - Strict I&Os. ENDO - * DMII * BSGs per unit protocol. ISS --> gtt per unit policy. HEME - * h/o CLL: * Apparently without treatment at this point. * Anemia: * ?? Ongoing urologic losses. ID - * Severe sepsis with septic shock: * In the setting of RIGHT lower lobe infiltrate versus possible urologic skye rces. * Urine cultures pending. * Currently on cefepime and vancomycin. * Deescalate as able. * PCT >14. * Lactate trending up (3.7-->4.1). * Blood cultures/Urine Cultures pending. LINES/IV ACCESS - * PIVs x3 * RIGHT IJ CVL * LEFT Radial Arterial Line * Villareal DVT PROPHYLAXIS - * Heparin sq * SCDs I have personally spent 60 minutes of critical care time in the direct management of this patient. This is a life/limb threatening event. This includes time spent evaluating patient, direct bedside care, chart review, placing orders, interpretation of diagnostic studies, discussion with consultants, pat ient, and family members, as well as other required patient management activities. This time is exclusive of all separately billable procedures, and teaching time and separate from and in addition to any other critical care service time. Thank you for allowing us to participate in the care of this patient. Please refer to my attending physician's documentation for any further recommendations. Supervising Physician Co-Signing Physician Notes Patient seen and examined. EMR reviewed as well as imaging. Pt with severe sepsis with septic shock. Sources vs respiratory. Cont abx. Adequately volume resuscitated, continue pressors. Awaiting cortisol. Follow renal function, at risk for deterioration. Increased trop likely supply demand but will recheck echo. Trend markers until peak. At risk for deterioration and need for more aggressive support. CVC and A lines placed on arrival to ICU. consult for gross hematuria, history of bladder CA in the past but recent negative cysto. Follow Hgb. Nephrology consult if kidney function worsens. Trend lactate and check ABG History of Present Illness Reason for Consultation: Sepsis Requesting Physician: Dr. Irizarry Attending Physician: Dr. Irizarry History of Present Illness Patient is an 88-year-old gentleman with a significant past medical history of CLL, coronary artery disease status post coronary intervention x3, diabetes, COPD, heart failure with reduced ejection fraction, status post pacemaker placement, hypertension, ischemic cardiomyopathy, and recent evaluation for gross hematuria. Patient has recently undergone 2 separate cystoscopies and evaluation for his hematuria. He reports that last evening he could not get comfortable and eventually slept in his recliner. This morning, he was unable to get out of the recliner which prompted his family calling EMS. Upon arrival in the emergency room, the patient was found to be profoundly hypotensive with systolics in the 60s. He was resuscitated with 3.5 L of crystalloid. He received IV Zosyn and vancomycin. White blood cell count significantly elevated greater than 23,000. Slight KAYLI and metabolic acidosis appreciated. Lactic acidosis with a lactate that climbed from 3.7-4.1. Troponin continues to climb from 800-11 100. Procalcitonin elevated to greater than 14. Patient now requiring supplemental oxygen after fluid resuscitation. Upon evaluation at bedside, the patient is awake and alert. He reports that his breathing does feel worse at this point. He states that he generally feels weak and fatigued. He denies recent episodes of coughing or upper respiratory symptoms otherwise. He has not had a history of recurrent pneumonia. No recent episodes of vomiting. He denies complaints of chest pain, palpitations, dizziness, or lightheadedness. Allergies Allergy/AdvReac Type Severity Reaction Status Date / Time levofloxacin Allergy Unknown UNKNOWN Verified 08/11/23 11:14 REACTION Home Medications Medication Instructions Recorded Confirmed Type cholecalciferol (vitamin D3) 50 2,000 units PO DAILY #90 caps 06/27/19 09/07/23 Rx mcg (2,000 unit) capsule cyanocobalamin (vitamin B-12) 1,000 mcg PO DAILY #90 tabs 06/27/19 09/07/23 Rx 1,000 mcg tablet aspirin 81 mg tablet,delayed 81 mg PO DAILY 02/23/21 09/07/23 History release (Juan Low Dose Aspirin) albuterol sulfate 90 mcg/actuation 2 puff inhalation Q4H PRN 03/19/21 09/07/23 Rx aerosol inhaler shortness of breath or wheezing #6.7 grams nitroglycerin 0.4 mg sublingual 0.4 mg sublingual .COMPLEX #25 tabs 03/23/21 09/07/23 Rx tablet magnesium oxide 300 mg PO DAILY #30 tabs 12/14/21 09/07/23 Rx sacubitril 24 mg-valsartan 26 mg 1 tab PO DAILY #30 tabs 12/14/21 09/07/23 Rx tablet (Entresto) nebulizers #1 ea 06/18/22 08/11/23 Rx ranolazine 1,000 mg 500 mg PO BID #60 tabs 08/20/22 09/07/23 Rx tablet,extended release,12 hr levothyroxine 75 mcg capsule 75 mcg PO DAILY #90 caps 10/04/22 09/07/23 Rx insulin lispro 100 unit/mL See Rx Instructions subcut TID #15 11/03/22 09/07/23 Rx subcutaneous pen (Humalog KwikPen mL (U-100) Insulin) insulin glargine 100 unit/mL (3 16 unit subcut HS 11/29/22 09/07/23 History mL) subcutaneous pen (Lantus Solostar U-100 Insulin) metoprolol succinate 25 mg 12.5 mg PO DAILY 11/29/22 09/07/23 History tablet,extended release 24 hr albuterol sulfate 1.25 mg/3 mL 1.25 mg (3 mL) inhalation QID PRN 04/12/23 09/07/23 Rx solution for nebulization shortness of breath or wheezing #90 mL glucagon 1 mg solution for 1 mg subcut Q20M PRN hypoglycemia 04/13/23 09/07/23 Rx injection (Glucagon Emergency Kit) #1 ea atorvastatin 40 mg tablet 40 mg PO DAILY #90 tabs 06/01/23 09/07/23 Rx pen needle, diabetic 31 gauge x #200 ea 08/31/23 Rx 1/4" (1st Tier Unifine Pentips) furosemide 20 mg tablet 20 mg PO DAILY 09/07/23 09/07/23 History gabapentin 300 mg capsule 300 mg PO PM 09/07/23 09/07/23 History Patient History Medical History Abnormal weight loss Acute renal failure KAYLI (acute kidney injury) Bronchitis CAD (coronary artery disease), sitka coronary artery Changing skin lesion Chronic obstructive pulmonary disease CLL (chronic lymphocytic leukemia) Close exposure to [employer] 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 Dyspnea on exertion Gross hematuria Hodgkin lymphoma Hypothyroidism Hypothyroidism Injury of right elbow Ischemic cardiomyopathy Left carpal tunnel syndrome Leg edema Lumbar spinal stenosis severe at L4-5 Lung infiltrate Lymphoma Memory loss Myocardial infarction Neuropathy Pacemaker Postherpetic neuralgia Rib pain Sepsis Solar keratosis Squamous cell skin cancer Excised from right forearm on June 21, 2022 Streptococcus pneumoniae pneumonia Type 2 diabetes mellitus with microalbuminuria Vitamin B 12 deficiency Surgical History History of carpal tunnel surgery of left wrist History of cataract surgery History of colonoscopy Hx of detached retina repair Status post placement of cardiac pacemaker Family History Sister Colon cancer Cancer Unknown No problems noted. 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 All else were negative. Physical Exam Physical Exam: VITAL SIGNS - Vital signs and nursing notes were reviewed. GENERAL - 88-year-old male appearing his stated age who is in no acute distress. Communicates well with provider and answers questions appropriately. SKIN - Without rashes. HEAD - NC/AT. EYES - PERRL with EOMI bilaterally. Sclera anicteric. EARS - No deformities of external structures noted on gross examination bilaterally. NOSE - Midline and without cyanosis. MOUTH/OROPHARYNX - Without perioral cyanosis. Buccal mucosa pink and dry. NECK - Neck with FROM. LUNGS - Audible upper airway gargling noted. Diffuse rales appreciated. CARDIAC - RRR with S1/S2. No murmur, rubs, or gallops appreciated. ABDOMEN - Abdominal contour flat without pulsations or visible masses. BS normoactive all four quadrants. No tenderness, palpable masses, hepatosplenomegaly, or ascites noted. EXTREMITIES - No clubbing or peripheral cyanosis. No pretibial edema present. +3/5 radial pulses palpated throughout. NEUROLOGIC - Cranial nerves II through XII grossly intact. Sensory intact to light touch throughout. Patellar reflexes +2/4. PSYCH - A&Ox3 and cooperates fully with examiner. Pt is very pleasant and interacts well with examiner. Results & Data Results & Data Vital Signs (Past 12 Hours) Vital Signs Temp Pulse Pulse Resp BP BP Pulse Ox 09/07/23 14:39 74 09/07/23 14:30 73 31 H 94 09/07/23 14:20 90/44 L 09/07/23 14:20 74 31 H 98 09/07/23 14:15 75 30 H 97 09/07/23 14:10 74/47 L 09/07/23 14:10 74 31 H 97 09/07/23 14:00 76 27 H 100 09/07/23 14:00 85/44 L 09/07/23 13:50 77 33 H 99 09/07/23 13:50 75/46 L 09/07/23 13:45 77 30 H 99 09/07/23 13:41 79/38 L 09/07/23 13:41 78 29 H 93 09/07/23 13:30 80 32 H 96 09/07/23 13:30 83/42 L 09/07/23 13:20 90/55 L 09/07/23 13:20 79 22 98 09/07/23 13:15 78 27 H 98 09/07/23 13:11 80/38 L 09/07/23 13:11 78 30 H 97 09/07/23 13:00 76 27 H 92 09/07/23 13:00 72/46 L 09/07/23 12:50 73 33 H 98 09/07/23 12:50 84/45 L 09/07/23 12:49 73 30 H 99 09/07/23 12:49 77/38 L 09/07/23 12:45 73 31 H 99 09/07/23 12:30 73 32 H 100 09/07/23 12:30 79/46 L 09/07/23 12:27 86/43 L 09/07/23 12:27 75 31 H 99 09/07/23 11:03 38.1 C H 09/07/23 12:30 75 76/48 L 09/07/23 10:44 38.4 C H 09/07/23 12:15 75 24 94 09/07/23 12:15 66/40 L 09/07/23 12:13 75 29 H 90 09/07/23 12:13 76/41 L 09/07/23 12:10 76/48 L 09/07/23 12:10 74 31 H 91 09/07/23 12:07 78 29 H 91 09/07/23 12:07 79/47 L 09/07/23 12:00 76 27 H 93 09/07/23 12:00 78/41 L 09/07/23 11:48 79 27 H 83 L 09/07/23 11:48 87/48 L 09/07/23 11:45 79 24 84 L 09/07/23 11:30 76 31 H 92 09/07/23 12:00 75 30 H 78/49 L 87 L 09/07/23 12:13 92 09/07/23 12:07 88 L 09/07/23 12:00 86 L 09/07/23 11:15 72 18 96 09/07/23 11:10 88/43 L 09/07/23 11:10 74 22 93 09/07/23 11:00 74 20 92 09/07/23 11:00 88/43 L 09/07/23 11:31 90 09/07/23 11:04 93 09/07/23 10:55 90/40 L 09/07/23 10:55 76 18 09/07/23 10:47 81 18 09/07/23 10:47 87/41 L 09/07/23 10:46 81 13 09/07/23 10:47 81 09/07/23 10:35 37.2 C 80 19 68/36 L 89 L O2 Del Method O2 Flow Rate 09/07/23 14:39 09/07/23 14:30 09/07/23 14:20 09/07/23 14:20 09/07/23 14:15 09/07/23 14:10 09/07/23 14:10 09/07/23 14:00 09/07/23 14:00 09/07/23 13:50 09/07/23 13:50 09/07/23 13:45 09/07/23 13:41 09/07/23 13:41 09/07/23 13:30 09/07/23 13:30 09/07/23 13:20 09/07/23 13:20 09/07/23 13:15 09/07/23 13:11 09/07/23 13:11 09/07/23 13:00 09/07/23 13:00 09/07/23 12:50 09/07/23 12:50 09/07/23 12:49 09/07/23 12:49 09/07/23 12:45 09/07/23 12:30 09/07/23 12:30 09/07/23 12:27 09/07/23 12:27 09/07/23 11:03 09/07/23 12:30 09/07/23 10:44 09/07/23 12:15 09/07/23 12:15 09/07/23 12:13 09/07/23 12:13 09/07/23 12:10 09/07/23 12:10 09/07/23 12:07 09/07/23 12:07 09/07/23 12:00 09/07/23 12:00 09/07/23 11:48 09/07/23 11:48 09/07/23 11:45 09/07/23 11:30 09/07/23 12:00 Room Air 09/07/23 12:13 Nasal Cannula 3 09/07/23 12:07 Nasal Cannula 2 09/07/23 12:00 Room Air 09/07/23 11:15 2 09/07/23 11:10 09/07/23 11:10 2 10/25/23 11:00 2 09/07/23 11:00 09/07/23 11:31 Room Air 09/07/23 11:04 09/07/23 10:55 09/07/23 10:55 09/07/23 10:47 09/07/23 10:47 09/07/23 10:46 09/07/23 10:47 09/07/23 10:35 Room Air Coding Level of Care Code 71292 CRITICAL CARE 1ST 30-74M Diagnoses Severe sepsis A41.9; R65.20 Pneumonia J18.9 Gross hematuria R31.0 KAYLI (acute kidney injury) N17.9 Chronic obstructive pulmonary disease J44.9 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
[2023-09-07] MEDS: ICU Protocol for HYPERglycemia SCH ×2 (16:16→21:09)
--- NOTE | 2023-09-07 16:41 | Procedure Note ---
Procedure Note Date of Service September 07, 2023 Note ARTERIAL LINE PROCEDURE NOTE: Procedure: Arterial Line Placement Provider: Ta Brandt MD Indication: Monitoring on Pressors Anesthesia: None Verbal consent was obtained from the patient prior to the procedure. Indication, risks, and benefits were explained at length. A time-out was completed verifying correct patient, procedure, site, positioning, and implant(s) or special equipment if applicable. Allens test was performed to ensure adequate perfusion. Patients left wrist was prepped and draped in the usual sterile fashion. Using anatomic landmarks, a 20g Arrow arterial line was introduced into the left radial artery. Catheter was threaded, and the needle was removed with appropriate blood return. Good waveform was observed. The patient tolerated the procedure well. Blood Loss: Minimal Complications: None Coding CPT Codes Tubes, Drains, and Vasc Access - Tubes, Drains, and Vasc Access: [id number] Arterial Cath/Cannulation Sampling/Monitoring/Transfusion ([id number]) [facility] [place] Codes (Charges) Tubes, Drains, and Vasc Access Procedure 1: Tubes, Drains, and Vasc Access: [id number] Arterial Cath/Cannulation Sampling/Monitoring/Transfusion
--- NOTE | 2023-09-07 17:11 | XRay Report ---
XR chest 1V portable CLINICAL HISTORY: s/p RIGHT IJ COMPARISON STUDY: Chest CT April 27, 2023. Chest radiograph performed earlier today. FINDINGS: There is no pneumothorax following placement of a right internal jugular central line. The tip is within the mid SVC. A left subclavian biventricular pacer/AICD remains in place. Small to mode rate right pleural effusion with asymmetric right lung airspace opacities and interstitial thickening is again noted. Cardiomegaly is unchanged. IMPRESSION: 1. No pneumothorax placement of a right internal jugular central line. 2. Smwoi-mr-kosjovew right pleural effusion with asymmetric right lung airspace opacities and interst itial thickening. The findings favor pneumonia however asymmetric pulmonary edema could appear simila r. ACT 112: Negative or not required by law. Electronically signed by: Camron Santos M.D. 09/07/2023 5:09 PM
--- NOTE | 2023-09-07 17:11 | Procedure Note ---
Procedure Note Date of Service September 07, 2023 Note Procedure: Internal Jugular Central Line Placement Attending: Dr. Brandt APC: Danilo Joseph PA-C Indication: Central Drug Administration, Poor Venous Access, Multiple Lab Draws Necessary, etc. Anesthesia: Lidocaine 1% Verbal consent was obtained in the setting of poor peripheral access with need for advanced medications including vasopressors and patient's clinical deterioration status. A time-out was completed verifying correct patient, procedure, site, positioning, and implants(s) or special equipment if applicable. Patients RIGHT Neck was cleansed and draped in the typical sterile fashion using Chloraprep. The Internal Jugular Vein and Carotid Artery were identified using ultrasound. The superficial tissue was anesthetized using 4.0 mL of 1% lidocaine without epinephrine under direct visualization with the ultrasound. After adequate anesthetization was achieved, the Internal Jugular vein was cannulated under direct ultrasound guidance using an introducer needle on a syringe. Good venous blood return was maintained prior to removal of syringe from introducer needle. Using Seldinger Technique, a guide wire was advanced through the introducer needle without resistance. The introducer needle was removed and ultrasound images were obtained of the guide wire within the Internal Jugular Vein and saved to the patients medical record. A small incision was made in penetrating fashion at the guide wire insertion site utilizing an 11 blade scalpel. The dilator was advanced to the vessel without resistance. The dilator was exchanged for the triple lumen catheter which was advanced into the vessel without resistance. The guide wire was removed intact from the catheter without issue. Claves were placed on each catheter tip with confirmation of good blood flow from each lumen. Each port was easily flushed with sterile saline. The catheter was placed at 15 cm and sutured in place. BioPatch was applied to the catheter and a sterile Tegaderm dressing was applied over the catheter with careful attention to sterility. Patient tolerated procedure well. No immediate complications were met. Post procedure x-ray was completed, placement was appropriate and no pneumothorax was noted. Images obtained are saved for permanent record Procedural Ultrasound Guidance: Procedure Date: 09/07/2023 Indication: Pressors, Poor peripheral access, multiple medications, multiple blood draws. Attending: Dr. Brandt APC: Danilo Joseph PA-C Artery AND Vein visualized: YES Compressible Vein: YES Guidewire or Short Catheter seen in vein prior to dilation: YES Line confirmed in Vein with ultrasound: YES Images obtained are saved for permanent record. Coding CPT Codes Tubes, Drains, and Vasc Access - Tubes, Drains, and Vasc Access: [id number] Insertion Of Non-tunneled Catheter Age 5 Yrs> ([id number]) Tubes, Drains, and Vasc Access - Tubes, Drains, and Vasc Access: [id number] Ultrasound Guidance For Vascular ([id number]) [facility] [place] Codes (Charges) Tubes, Drains, and Vasc Access Procedure 1: Tubes, Drains, and Vasc Access: [id number] Insertion Of Non-tunneled Catheter Age 5 Yrs> Procedure 2: Tubes, Drains, and Vasc Access: [id number] Ultrasound Guidance For Vascular
[2023-09-07] MEDS: CEFEPIME 1,000 MG in SYRINGE 0 ML IV SCH (17:30)
[2023-09-07] MEDS: VASOPRESSIN 20 UNITS in 0.9 % SODIUM CHLORIDE 100 ML IV SCH (17:38)
[2023-09-07 17:52] LABS: Base Excess ABG -13.5 mEq/L (-9-1.8); HCO3 ABG 14 mmol/L (19-24); PCO2 ABG 36 mmHg (35-46); PO2 ABG 72 mmHg (80-95)
--- NOTE | 2023-09-07 18:12 | Billing Data ---
Date of Service September 07, 2023 Coding Level of Care Code 32335 CRITICAL CARE 1ST 30-74M Time Spent (min) 35 Comment 35 min CCT performed in addition to all separately billable procedures.
[2023-09-07] MEDS: FAMOTIDINE 20 MG in SYRINGE 3 ML IV SCH (18:32)
[2023-09-07 18:33] LABS: pH ABG 7.19 (7.35-7.45)
[2023-09-07] MEDS ORDERED: SODIUM BICARB 8.4% INJ 50 MEQ/50 ML SYR IV STA (19:05)
[2023-09-07] MEDS ORDERED: STAT IV/IM STA (19:05)
[2023-09-07] MEDS ORDERED: SODIUM BICARBONATE 8.4% 150 MEQ in DEXTROSE 5% 1,000 ML IV SCH (19:30)
--- NOTE | 2023-09-07 20:09 | Urology Consultation ---
I have discussed Mr. Alvarado's case with Ricky Gallagher PA-C and agree with the above documentation. He is currently undergoing work-up for hematuria with Dr. Mccoy, although no underlying cause has been identified yet. There may be a component of urinary tract infection, although his urinalysis was not overly suspicious. It is reasonable to treat for infection as he is being treated for pneumonia as well. At this point, as long as the bladder continues to drain, I would recommend that he stay well-hydrated to keep the urine as dilute as possible. If he starts to have clots, he can be started on continuous bladder irrigation or hand irrigated as needed. Urology will follow along -Sameer Duke MD. Date of Consultation September 07, 2023 Assessment & Plan (1) Gross hematuria: Patient has been admitted to the intensive care unit due to septic shock with underlying pneumonia as the suspected source He is currently receiving BiPAP to aid his respirations. Patient is noted to have an elevated troponin which may be in the setting of demand ischemia but he does have an underlying history of ischemic cardiomyopathy. Troponins are being trended. Plans noted for patient to undergo a 2D echo. The patient is currently receiving blood pressure support with vasopressors as well as a bicarb drip He is receiving broad-spectrum antibiotics in form of cefepime and vancomycin had appropriate cultures have been sent. Cultures should be monitored and antibiotics be tailored based on these results I discussed the patient's hematuria with my attending physician Dr. Duke: The cause of patient's gross hematuria has not been ascertained -recommend maintaining the patient's Villareal catheter to gravity drainage. If it does become clogged manual irrigation attempts can be employed Recommend following serial hemoglobin hematocrits The patient does have a underlying history of previous bladder cancer and he has undergone cystoscopies as described in history of present illness with the most recent one being earlier in August of this year without findings of a source of his hematuria Plans were in place for patient undergo a CT urogram as an outpatient this cannot be performed at the present time due to the patient's acute kidney injury The ICU staff was considering obtaining a CT scan of the abdomen pelvis but he is considered too unstable to transport to CAT scan at this time We will be preferable to avoid anticoagulants and antiplatelets however the patient has an underlying history of coronary artery disease and an uptrending troponin. The patient's cardiac status would take precedence over his hematuria and if anticoagulation is needed from a cardiovascular standpoint any sequelae of ongoing or worsening hematuria would merely need to be managed. This would consist of following serial hemoglobin and hematocrit and transfuse the patient as needed. If needed continuous bladder irrigation could be employed and cystoscopy could even be utilized if the patient was considered stable enough. We will continue to follow along with you while the patient is hospitalized History of Present Illness Reason for Consultation: Gross hematuria Attending Physician: Werner Irizarry MD History of Present Illness This is an 88-year-old male who presented to [facility] earlier today with severe sepsis and septic shock. The patient reports that over the past 24 hours particulate night he could not get comfortable. He therefore slept in recliner but when he went to get up this morning he was very weak and had a great deal of difficulty getting out of his recliner. Due to this problem the family summoned EMS and the patient was noted to be profoundly hypotensive with reported systolic blood pressure in the 60s. The patient did report that he did have some shortness of breath and he felt generally weak and fatigued. He denies any abdominal pain. He denies any coughing or other upper respiratory symptoms. He has not had any nausea or vomiting. He also denies any fevers, shakes, or chills. The patient notes that he has had gross hematuria for quite some time. He follows with Dr. Mccoy of [facility] urology. He has an underlying history of bladder cancer and the patient has had outpatient cystoscopies with the most recent one being on 08/26/2023 which was noted to be essentially normal except for some debris in the bladder. As the patient does have hematuria plans were made for patient undergo a CT urogram in September of this year but this has yet to be undertaken. Because of the patient's presentation he has been admitted to [facility] in the intensive care unit. And urology has been asked to see the patient for his gross hematuria. I did asked patient about urologic symptoms and addition to the hematuria he specifically denies any dysuria or urinary frequency. He also does not report any urinary retention Since admission to the hospital the patient has had labs and imaging which independent reviewed. The patient did have a chest x-ray performed that showed a 6 metric interstitial thickening and airspace opacities in the right mid and right lower lung favoring a diagnosis of pneumonia. Labs include a CBC her white blood cell count was 28.8. Hemoglobin and hematocrit are 9.3 and 28.9. Platelet count was 105,000. Coagulation studies are noted to be normal. The patient did have an arterial blood gas with a pH of 7.19 and a PCO2 of 36 PO2 of 72 and a bicarb level of 14. Chemistry profile showed sodium and potassium were normal. His BUN and creatinine were 24 and 1.8. Lactic acid level was performed and peaked at 4.1. It is now improved to 3.0. Troponin levels were checked and were initially 827.9 but have increased to 1167.1. A procalcitonin level was elevated at 14.8. Urinalysis showed turbid urine but was negative for nitrites. It was also negative for leukocyte Estrace and only had 5-10 white blood cells per high-power field. There is 1+ bacteria on this study. An MRSA nasal swab was negative. The patient she was checked for COVID-19 which was negative. Since arrival to the ICU the patient has been placed on BiPAP. At the present time he is resting comfortably in bed and does not appear to be in any distress. Allergies Allergy/AdvReac Type Severity Reaction Status Date / Time levofloxacin Allergy Unknown UNKNOWN Verified 08/11/23 11:14 REACTION Home Medications Medication Instructions Recorded Confirmed Type cholecalciferol (vitamin D3) 50 2,000 units PO DAILY #90 caps 06/27/19 09/07/23 Rx mcg (2,000 unit) capsule cyanocobalamin (vitamin B-12) 1,000 mcg PO DAILY #90 tabs 06/27/19 09/07/23 Rx 1,000 mcg tablet aspirin 81 mg tablet,delayed 81 mg PO DAILY 02/23/21 09/07/23 History release (Juan Low Dose Aspirin) albuterol sulfate 90 mcg/actuation 2 puff inhalation Q4H PRN 03/19/21 09/07/23 Rx aerosol inhaler shortness of breath or wheezing #6.7 grams nitroglycerin 0.4 mg sublingual 0.4 mg sublingual .COMPLEX #25 tabs 03/23/21 09/07/23 Rx tablet magnesium oxide 300 mg PO DAILY #30 tabs 12/14/21 09/07/23 Rx sacubitril 24 mg-valsartan 26 mg 1 tab PO DAILY #30 tabs 12/14/21 09/07/23 Rx tablet (Entresto) nebulizers #1 ea 06/18/22 08/11/23 Rx ranolazine 1,000 mg 500 mg PO BID #60 tabs 08/20/22 09/07/23 Rx tablet,extended release,12 hr levothyroxine 75 mcg capsule 75 mcg PO DAILY #90 caps 10/04/22 09/07/23 Rx insulin lispro 100 unit/mL See Rx Instructions subcut TID #15 11/03/22 09/07/23 Rx subcutaneous pen (Humalog KwikPen mL (U-100) Insulin) insulin glargine 100 unit/mL (3 16 unit subcut HS 11/29/22 09/07/23 History mL) subcutaneous pen (Lantus Solostar U-100 Insulin) metoprolol succinate 25 mg 12.5 mg PO DAILY 11/29/22 09/07/23 History tablet,extended release 24 hr albuterol sulfate 1.25 mg/3 mL 1.25 mg (3 mL) inhalation QID PRN 04/12/23 09/07/23 Rx solution for nebulization shortness of breath or wheezing #90 mL glucagon 1 mg solution for 1 mg subcut Q20M PRN hypoglycemia 04/13/23 09/07/23 Rx injection (Glucagon Emergency Kit) #1 ea atorvastatin 40 mg tablet 40 mg PO DAILY #90 tabs 06/01/23 09/07/23 Rx pen needle, diabetic 31 gauge x #200 ea 08/31/23 Rx 1/4" (1st Tier Unifine Pentips) furosemide 20 mg tablet 20 mg PO DAILY 09/07/23 09/07/23 History gabapentin 300 mg capsule 300 mg PO PM 09/07/23 09/07/23 History Patient History Medical History Abnormal weight loss Acute renal failure KAYLI (acute kidney injury) Bronchitis CAD (coronary artery disease), [place] coronary artery Changing skin lesion Chronic obstructive pulmonary disease CLL (chronic lymphocytic leukemia) Close exposure to 2018- 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 Dyspnea on exertion Gross hematuria Hodgkin lymphoma Hypothyroidism Hypothyroidism Injury of right elbow Ischemic cardiomyopathy Left carpal tunnel syndrome Leg edema Lumbar spinal stenosis severe at L4-5 Lung infiltrate Lymphoma Memory loss Myocardial infarction Neuropathy Pacemaker Postherpetic neuralgia Rib pain Sepsis Solar keratosis Squamous cell skin cancer Excised from right forearm on June 21, 2022 Streptococcus pneumoniae pneumonia Type 2 diabetes mellitus with microalbuminuria Vitamin B 12 deficiency Surgical History History of carpal tunnel surgery of left wrist History of cataract surgery History of colonoscopy Hx of detached retina repair Status post placement of cardiac pacemaker Family History Sister Colon cancer Cancer Unknown No problems noted. Brother Cardiac disorder Cancer Father Cancer Mother Cardiac disorder Diabetes Hypertension Social History Smoking Status: Never smoker Second Hand Exposure: No; Do You Dip or Chew Tobacco: No; Hx Alcohol Use: No Hx Substance Use: No Preferred Language: Romansh Communication Ability: Effective Visual Impairment: Limited Hearing Ability: Normal Compounding Assistant Required: No Beliefs That Will Affect Care: None marital status: Current Living Situation: Family current occupational status: retired Other Information That Helps Us Care for You: No Feels Safe at Home: Yes Safety Concerns: Feels Safe At This Time Childhood Exposure to Second-Hand Smoke: No Dental Care, Regularly: Yes Physical Activity Frequency: Daily Seatbelt Use: always Sunscreen Use: No Assistive Devices: Cane and Glasses Review of Systems Constitutional: + weakness; no fever Ear, Nose, Mouth, Throat: no hearing loss Respiratory: + dyspnea; no cough Cardiovascular: no chest pain Gastrointestinal: no abdominal pain, no nausea and no vomiting Genitourinary: + as per Subjective / HPI Musculoskeletal: no back pain Integumentary: no rash Neurologic: no localized weakness Physical Exam Constitutional: WD/WN, vitals as above Eyes: no conjunctival abnormality ENMT: Ears: no hearing impairment Neck: trachea midline Respiratory: Patient's respirations are currently aided by BiPAP. The patient was not using accessory muscles to aid in respiration and he did not appear overtly dyspneic at the time of my exam. Cardiovascular: Rate/Rhythm: regular rate and regular rhythm Gastrointestinal (Abdomen): Abdomen is soft and nondistended. It is nonrigid. There is no pain with palpation. Musculoskeletal: No calf tenderness is noted. Skin: no rashes Neurologic: moves all extremities Psychiatric: A+Ox3, euthymic affect Genitourinary: A Villareal catheter is in place. This has been placed this hospital admission. Is draining gross hematuria without visible blood clots and does appear patent. Results & Data Vital Signs (Past 12 Hours) Vital Signs Temp Pulse Pulse Resp BP BP BP 09/07/23 18:45 97 H 32 H 09/07/23 18:36 96 H 35 H 09/07/23 18:36 107/61 09/07/23 18:30 94 H 37 H 09/07/23 18:15 93 H 31 H 09/07/23 18:00 94 H 28 H 09/07/23 17:30 88 26 H 09/07/23 17:00 87 32 H 09/07/23 16:30 83 31 H 09/07/23 16:19 81 29 H 09/07/23 18:24 09/07/23 16:50 137/40 L 09/07/23 16:40 124/38 L 09/07/23 16:35 114/35 L 09/07/23 16:52 36.5 C 85 26 H 112/29 L 09/07/23 15:50 78 28 H 09/07/23 15:50 98/46 L 09/07/23 16:14 83 09/07/23 15:40 77 30 H 09/07/23 15:40 96/60 L 09/07/23 15:30 76 29 H 09/07/23 15:30 99/49 L 09/07/23 15:20 71 30 H 09/07/23 15:20 92/51 L 09/07/23 15:10 74 27 H 09/07/23 15:10 85/46 L 09/07/23 15:00 71 29 H 09/07/23 15:00 75/45 L 09/07/23 14:50 72 29 H 09/07/23 14:50 79/45 L 09/07/23 14:41 74 27 H 09/07/23 14:41 78/45 L 09/07/23 14:40 74 30 H 09/07/23 14:39 74 09/07/23 14:30 73 31 H 09/07/23 14:20 90/44 L 09/07/23 14:20 74 31 H 09/07/23 14:15 75 30 H 09/07/23 14:10 74/47 L 09/07/23 14:10 74 31 H 09/07/23 14:00 76 27 H 09/07/23 14:00 85/44 L 09/07/23 13:50 77 33 H 09/07/23 13:50 75/46 L 09/07/23 13:45 77 30 H 09/07/23 13:41 79/38 L 09/07/23 13:41 78 29 H 09/07/23 13:30 80 32 H 09/07/23 13:30 83/42 L 09/07/23 13:20 90/55 L 09/07/23 13:20 79 22 09/07/23 13:15 78 27 H 09/07/23 13:11 80/38 L 09/07/23 13:11 78 30 H 09/07/23 13:00 76 27 H 09/07/23 13:00 72/46 L 09/07/23 12:50 73 33 H 09/07/23 12:50 84/45 L 09/07/23 12:49 73 30 H 09/07/23 12:49 77/38 L 09/07/23 12:45 73 31 H 09/07/23 12:30 73 32 H 09/07/23 12:30 79/46 L 09/07/23 12:27 86/43 L 09/07/23 12:27 75 31 H 09/07/23 11:03 38.1 C H 09/07/23 12:30 75 76/48 L 09/07/23 10:44 38.4 C H 09/07/23 12:15 75 24 09/07/23 12:15 66/40 L 09/07/23 12:13 75 29 H 09/07/23 12:13 76/41 L 09/07/23 12:10 76/48 L 09/07/23 12:10 74 31 H 09/07/23 12:07 78 29 H 09/07/23 12:07 79/47 L 09/07/23 12:00 76 27 H 09/07/23 12:00 78/41 L 09/07/23 11:48 79 27 H 09/07/23 11:48 87/48 L 09/07/23 11:45 79 24 09/07/23 11:30 76 31 H 09/07/23 12:00 75 30 H 78/49 L 09/07/23 12:13 09/07/23 12:07 09/07/23 12:00 09/07/23 11:15 72 18 09/07/23 11:10 88/43 L 09/07/23 11:10 74 22 09/07/23 11:00 74 20 09/07/23 11:00 88/43 L 09/07/23 11:31 09/07/23 11:04 09/07/23 10:55 90/40 L 09/07/23 10:55 76 18 09/07/23 10:47 81 18 09/07/23 10:47 87/41 L 09/07/23 10:46 81 13 09/07/23 10:47 81 09/07/23 10:35 37.2 C 80 19 68/36 L Pulse Ox O2 Del Method O2 Flow Rate 09/07/23 18:45 92 09/07/23 18:36 91 09/07/23 18:36 09/07/23 18:30 92 09/07/23 18:15 93 09/07/23 18:00 87 L 09/07/23 17:30 97 09/07/23 17:00 98 09/07/23 16:30 100 09/07/23 16:19 98 09/07/23 18:24 Nasal Cannula 3 09/07/23 16:50 09/07/23 16:40 09/07/23 16:35 09/07/23 16:52 100 Nasal Cannula 3 09/07/23 15:50 97 Nasal Cannula 3 09/07/23 15:50 09/07/23 16:14 09/07/23 15:40 96 09/07/23 15:40 09/07/23 15:30 96 Room Air 09/07/23 15:30 09/07/23 15:20 95 09/07/23 15:20 09/07/23 15:10 96 09/07/23 15:10 09/07/23 15:00 97 09/07/23 15:00 09/07/23 14:50 96 09/07/23 14:50 09/07/23 14:41 97 09/07/23 14:41 09/07/23 14:40 97 09/07/23 14:39 09/07/23 14:30 94 09/07/23 14:20 09/07/23 14:20 98 09/07/23 14:15 97 09/07/23 14:10 09/07/23 14:10 97 09/07/23 14:00 100 09/07/23 14:00 09/07/23 13:50 99 09/07/23 13:50 09/07/23 13:45 99 09/07/23 13:41 09/07/23 13:41 93 09/07/23 13:30 96 09/07/23 13:30 09/07/23 13:20 09/07/23 13:20 98 09/07/23 13:15 98 09/07/23 13:11 09/07/23 13:11 97 09/07/23 13:00 92 09/07/23 13:00 09/07/23 12:50 98 09/07/23 12:50 09/07/23 12:49 99 09/07/23 12:49 09/07/23 12:45 99 09/07/23 12:30 100 09/07/23 12:30 09/07/23 12:27 09/07/23 12:27 99 09/07/23 11:03 09/07/23 12:30 09/07/23 10:44 09/07/23 12:15 94 09/07/23 12:15 09/07/23 12:13 90 09/07/23 12:13 09/07/23 12:10 09/07/23 12:10 91 09/07/23 12:07 91 09/07/23 12:07 09/07/23 12:00 93 09/07/23 12:00 09/07/23 11:48 83 L 09/07/23 11:48 09/07/23 11:45 84 L 09/07/23 11:30 92 09/07/23 12:00 87 L Room Air 09/07/23 12:13 92 Nasal Cannula 3 09/07/23 12:07 88 L Nasal Cannula 2 09/07/23 12:00 86 L Room Air 09/07/23 11:15 96 2 09/07/23 11:10 09/07/23 11:10 93 2 09/07/23 11:00 92 2 09/07/23 11:00 09/07/23 11:31 90 Room Air 09/07/23 11:04 93 09/07/23 10:55 09/07/23 10:55 09/07/23 10:47 09/07/23 10:47 09/07/23 10:46 09/07/23 10:47 09/07/23 10:35 89 L Room Air PG Care Time/CCT Total # of Minutes Spent Total Time Spent with Patient: Total time spent is greater than 50% in coordination of care (as documented) at patient's floor/unit and/or counseling patient: Coding Level of Care Code 66344 INT INP/OBS CARE 3/75MIN Diagnoses Gross hematuria R31.0
[2023-09-07 20:31] LABS: Allen Test Pos (Pos)
[2023-09-07 20:37] LABS: iSTAT Art Bld Gas pCO2 Correct 35 mmHg (35-46); iSTAT Art Bld Gas pH Corrected 7.192 (7.35-7.45); iSTAT Arterial Blood Gas HCO3 14 meg/L (19-24); iSTAT Arterial Blood Gas pCO2 35 mmHg (35-46); iSTAT Arterial Blood Gas pH 7.19 (7.35-7.45); iSTAT Arterial Blood Gas pO2 77 mmHg (80-95); iSTAT Arterial Blood Gas pO2 C 76; iSTAT Carbon Dioxide 15 mmol/L (24-31); iSTAT FiO2 50 %; iSTAT Hematocrit 28 % (42-52); iSTAT Hemoglobin 9.5 g/dl (14.0-18.0); iSTAT Potassium 4.4 mmol/L (3.3-5.0); iSTAT Site Art Line; iSTAT Sodium 138 mmol/L (135-144)
[2023-09-07] MEDS: HEPARIN SOD 5,000 UNIT/0.5 ML VIAL SQ SCH (20:58)
[2023-09-07] MEDS ORDERED: GLUCOSE 10 TAB/TUBE PO PRN (21:10)
[2023-09-07] MEDS ORDERED: GLUCAGON FOR INJ 1 MG VIAL SQ PRN (21:10)
[2023-09-07] MEDS ORDERED: GLUCOSE 40% GEL 15 GM TUBE PO PRN (21:10)
[2023-09-07] MEDS ORDERED: CARBOHYDRATES FOR HYPOGLYCEMIA PO PRN (21:10)
[2023-09-07] MEDS ORDERED: DEXTROSE 50% 50 ML SYRINGE IV PRN (21:10)
[2023-09-07 21:55] LABS: BUN Creatinine Ratio 16.9 (10-20); Creatinine Clr Calc Pharmacy 29.7 ml/min; Est GFR (African American) 38.9 ml/min; Est GFR (Non-African American) 33.5 ml/min; Magnesium 1.4 mg/dl (1.7-2.4); Potassium 4.6 mmol/L (3.5-5.1)
[2023-09-07] MEDS: MAGNESIUM SULFATE / D5W 1 GM/100 ML BAG IV SCH (22:41)
[2023-09-08] MEDS: INSULIN ASPART PER UNIT CHARGE SC SCH ×6 (00:16→22:02)
[2023-09-08] MEDS: VASOPRESSIN 20 UNITS in 0.9 % SODIUM CHLORIDE 100 ML IV SCH ×3 (00:16→15:55)
[2023-09-08] MEDS: MAGNESIUM SULFATE / D5W 1 GM/100 ML BAG IV SCH ×3 (00:16→04:16)
[2023-09-08] MEDS: NOREPINEPHRINE/D5W 4 MG/250 ML PLCT IV SCH ×10 (01:31→22:23)
[2023-09-08] MEDS ORDERED: SODIUM BICARB 8.4% INJ 50 MEQ/50 ML SYR IV STA ×2 (03:10→08:18)
[2023-09-08 03:17] LABS: iSTAT Art Bld Gas pCO2 Correct 33 mmHg (35-46); iSTAT Art Bld Gas pH Corrected 7.212 (7.35-7.45); iSTAT Arterial Blood Gas HCO3 13 meg/L (19-24); iSTAT Arterial Blood Gas pCO2 33 mmHg (35-46); iSTAT Arterial Blood Gas pH 7.21 (7.35-7.45); iSTAT Arterial Blood Gas pO2 83 mmHg (80-95); iSTAT Arterial Blood Gas pO2 C 82; iSTAT Carbon Dioxide 14 mmol/L (24-31); iSTAT FiO2 35 %; iSTAT Hematocrit 28 % (42-52); iSTAT Hemoglobin 9.5 g/dl (14.0-18.0); iSTAT Potassium 4.4 mmol/L (3.3-5.0); iSTAT Site Art Line; iSTAT Sodium 137 mmol/L (135-144)
[2023-09-08] MEDS: CEFEPIME 1,000 MG in SYRINGE 0 ML IV SCH ×2 (04:15→16:30)
[2023-09-08] MEDS: HEPARIN SOD 5,000 UNIT/0.5 ML VIAL SQ SCH ×2 (05:45→13:39)
[2023-09-08] MEDS: FAMOTIDINE 20 MG in SYRINGE 3 ML IV SCH (05:45)
--- NOTE | 2023-09-08 05:49 | Communication Note ---
Date of Service: September 08, 2023 Spoke with cardiology earlier this evening regarding the patient's elevated troponin which is now at 4500. EKG earlier was without ST elevation, and pat ient is not experiencing angina. Hematuria complicates ability to anticoagulate and cardiology was consulted. Per our conversation no recommendation for heparin drip without evidence of ACS. Suspect elevated troponin likely due to demand ischemia in the setting of septic shock with KAYLI and hypoxia. We will follow-up echo this a.m. Continue to trend troponin for peak. Coding Level of Care Code None
[2023-09-08] MEDS: ICU Protocol for HYPERglycemia SCH ×4 (05:58→22:02)
[2023-09-08 06:04] LABS: Albumin Level 2.9 gm/dl (3.4-5.0); BUN Creatinine Ratio 17.5 (10-20); Bilirubin Direct 0.2 mg/dl (0-0.2); Bilirubin,Total 0.6 mg/dl (0.2-1.0); Calcium 7.1 mg/dl (8.6-10.3); Creatinine Clr Calc Pharmacy 27.1 ml/min; Est GFR (African American) 34.8 ml/min; Magnesium 2.4 mg/dl (1.7-2.4); Phosphorus 5.6 mg/dl (2.5-4.9); Potassium 4.4 mmol/L (3.5-5.1); Total Protein 4.8 gm/dl (6.0-8.3); Troponin I High Sensitivity 4078.2 pg/ml (0-20)
[2023-09-08] MEDS ORDERED: STAT IV Infusion **Titration per Protocol STA (06:08)
[2023-09-08] MEDS ORDERED: INSULIN PROTOCOL GOAL RANGE ONE (06:08)
[2023-09-08] MEDS ORDERED: INSULIN REGULAR 250 UNITS in SODIUM CHLORIDE 0.9% 247.5 ML IV SCH (06:30)
[2023-09-08] MEDS ORDERED: NovoLIN-R BOLUS FROM BAG IV ONE (06:30)
[2023-09-08 06:37] LABS: Hematocrit (blood only) 28.9 % (42.0-52.0); Mean Corpuscular Hgb Conc 31.1 g/dL (32.0-36.0); Mean Corpuscular Volume 99.7 fL (80.0-100.0); Mean Platelet Volume 12.3 fL (9.4-12.4); Platelet Count 137 K/uL (130-400); RDW Coefficient of Variation 15.5 % (11.5-14.5); RDW Standard Deviation 56.2 fL (36.4-46.3); White Blood Count 45.97 K/ul (4.8-10.8)
[2023-09-08 07:04] LABS: Basophils # (auto) 0.03 K/uL (0.00-0.20); Basophils % (auto) 0.1 %; Echinocytes 2+; Immature Granulocytes % (auto) 0.7 %; Lymphocytes # (auto) 33.28 K/uL (1.20-3.40); Lymphocytes % (auto) 72.4 %; Monocytes # (auto) 5.29 K/uL (0.11-0.59); Monocytes % (auto) 11.5 %; Neutrophils # (auto) 7.07 K/uL (1.40-6.50); Neutrophils % (auto) 15.3 %; Smudge Cells Present
[2023-09-08] MEDS ORDERED: VANCOMYCIN HCL 1,000 MG in SODIUM CHLORIDE 0.9% 250 ML IV SCH (08:00)
[2023-09-08] MEDS ORDERED: CARBOHYDRATES FOR HYPOGLYCEMIA PO PRN (08:00)
[2023-09-08] MEDS ORDERED: GLUCOSE 40% GEL 15 GM TUBE PO PRN (08:00)
[2023-09-08] MEDS ORDERED: GLUCAGON FOR INJ 1 MG VIAL IM PRN (08:00)
[2023-09-08] MEDS ORDERED: DEXTROSE 50% 50 ML SYRINGE IV PRN (08:00)
[2023-09-08] MEDS ORDERED: GLUCOSE 10 TAB/TUBE PO PRN (08:00)
--- NOTE | 2023-09-08 08:27 | Critical Care Progress Note ---
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 NEURO - * CAM ICU: POSITIVE * AMS: * Symptoms seem to wax and wane. * Improvement in mental status throughout the day. * Likely reflecting metabolic encephalopathy in the setting of profound sepsis and metabolic acidosis. CARDIAC/VASCULAR - * Hypotension: * In the setting of severe sepsis with septic shock. * Initially received aggressive fluid resuscitation in the emergency department. * Continues to have increase in pressor requirement. * Random cortisol 40s. * Elevated troponin: * Likely in the setting of demand ischemia in the patient with prior history of ischemic cardiomyopathy and coronary disease. * Patient without complaints of chest discomfort at this time. * Continue to trend troponins to peak. * Appreciate cardiology consultation. * Would avoid heparin gtt in the setting of ongoing gross hematuria. * Ischemic cardiomyopathy: * Patient with an EF of 25 to 29% in 2021. * AICD in place. * Acute CHF exacerbation: * Doing well with PPV. * Likely more patient portal representative of a RLL pneumonia versus significant failure given CT findings. * EKG: Paced rhythm at 73 bpm. * Monitor on telemetry. RESPIRATORY - * RIGHT lower lobe infiltrate: * In review of patient's chart, the patient presented similarly to [facility] in November for similar presentation with findings of RIGHT lower lobe infiltrate and found sepsis. * Currently on cefepime and vancomycin. * Will add Flagyl given worsening illness and concerns for ongoing aspiration on CT. * Patient denies any recent aspiration or vomiting. * Prior diagnosis of COPD, however I am unable to appreciate any formal pulmonary function testing or prior evaluation from ghost writer. * Hypoxia: * Breathing has worsened after administration of IV fluid. Question volume overload in the patient with ischemic cardiomyopathy. * Doing well on PPV. GI/NUTRITION - * N.p.o. in the setting of pressor requirement * Patient would likely benefit from swallow study at some point given this recurrence of RIGHT lower lobe infiltrative findings. * Prophylaxis: Famotidine RENAL/LYTES - * KAYLI on what appears to be CKD: * Likely prerenal in the setting of profound hypotension and sepsis. * Continue to monitor renal function. * Strict I&O's. * Metabolic Acidosis: * In the setting of KAYLI and lactic acidosis. * Continue w/ BiCarb gtt - * Donovan hematuria: * Appreciate Urology input. * Villareal in place - Strict I&Os. ENDO - * DMII * BSGs per unit protocol. ISS --> gtt per unit policy. HEME - * h/o CLL: * Apparently without treatment at this point. * Anemia: * ?? Ongoing urologic losses. * Trend H&H. ID - * Severe sepsis with septic shock: * In the setting of RIGHT lower lobe infiltrate versus possible urologic sour cristobal. * Urine cultures pending. * Currently on cefepime and vancomycin. * Deescalate as able. * PCT >14. * Lactate trending up (3.7-->4.1-->6.4). * Blood cultures/Urine Cultures pending. LINES/IV ACCESS - * PIVs x3 * RIGHT IJ CVL * LEFT Radial Arterial Line * Villareal DVT PROPHYLAXIS - * Hold in the setting of profound hematuria. * SCDs CODE STATUS - * Had extensive conversation with multiple family members throughout the day. The patient continues to require significant amount of pressors and remains metabolically acidotic and with a lactate that is trending up. Informed him of these findings. The patient's mentation seems to continue to wax and wane. At this point, we will continue with current care, however I did discuss with them that if his symptoms were to worsen, would likely benefit from a comfort approach at that point. I have personally spent 55 minutes of critical care time in the direct management of this patient. This is a life/limb threatening event. This includes time spent evaluating patient, direct bedside care, chart review, placing orders, interpretation of diagnostic studies, discussion with consultants, patient, and family members, as well as other required patient management activities. This time is exclusive of all separately billable procedures, and teaching time and separate from and in addition to any other critical care service time. Thank you for allowing us to participate in the care of this patient. Please refer to my attending physician's documentation for any further recommendations. Admission and Anticipated Discharge Date Admission Date: September 07, 2023 Supervising Physician Co-Signing Physician Notes Patient seen and examined. EMR reviewed. Discussed with MONICA and agree with assessment plan as noted. The patient unfortunately is deteriorating with progressive acidosis and persistent pressor requirements. He has had progressive hypoxemic respiratory failure necessitating application of noninvasive positive pressure ventilation. His echocardiogram was reviewed. He has been seen by urology, cardiology, and nephrology. His echocardiogram showed an EF of 30 to 35% with global hypokinesis. He has moderate to severe MR now. His IVC showed normal collapsibility with an estimated right atrial pressure of around 3. Unfortunately the patient appears to be trending towards multiorgan system dysfunction/failure. He reiterates that he does not want CPR, defibrillation, or intubation or mechanical ventilation which I certainly think is reasonable given his comorbid conditions. I advised him this morning that I did them not sure that this is going to be a survivable illness for him. He expressed understanding and is in discussions with his family. Subjective Patient with increasing pressor requirement overnight as well as worsening respiratory status. He was provided BiPAP which did help improve symptoms. He remains persistently metabolically acidotic and with ongoing lactic acidosis. Slightly confused this morning. No specific complaints. Review of Systems Review of Systems: A complete 10 point review of systems was reviewed with the patient with pertinent positives and negatives as per history of present illness. All else were negative. Physical Exam Physical Exam: VITAL SIGNS - Vital signs and nursing notes were reviewed. GENERAL - 88-year-old male appearing his stated age who is in no acute distress. Communicates well with provider and answers questions appropriately. SKIN - Without rashes. EYES - PERRL with EOMI bilaterally. Sclera anicteric. EARS - No deformities of external structures noted on gross examination bilaterally. NOSE - Midline and without cyanosis. MOUTH/OROPHARYNX - Without perioral cyanosis. Buccal mucosa pink and dry. LUNGS - Audible upper airway gargling noted. Diffuse rales appreciated. CARDIAC - RRR with S1/S2. No murmur, rubs, or gallops appreciated. ABDOMEN - Abdominal contour flat without pulsations or visible masses. BS normoactive all four quadrants. No tenderness, palpable masses, hepatosplenomegaly, or ascites noted. EXTREMITIES - No clubbing or peripheral cyanosis. No pretibial edema present. +3/5 radial pulses palpated throughout. NEUROLOGIC - No focal neurological deficits appreciated. Pleasantly confused. Results & Data Results & Data Vital Signs (Past 12 Hours) Vital Signs Temp Pulse Resp BP Pulse Ox O2 Del Method FiO2 09/08/23 06:00 98 H 30 H 98/59 L 95 BiPAP 35 09/08/23 05:00 99 H 32 H 113/65 92 BiPAP 35 09/08/23 02:10 99 H 30 H 97 35 09/08/23 04:00 36.8 C 101 H 30 H 108/62 95 BiPAP 35 09/08/23 03:00 93 H 30 H 106/57 L 92 BiPAP 35 09/08/23 02:00 90 28 H 94/64 L 97 BiPAP 35 09/08/23 01:00 96 H 27 H 107/61 99 BiPAP 35 09/08/23 00:00 37 C 91 H 28 H 107/58 L 96 BiPAP 35 09/07/23 23:00 91 H 28 H 108/64 98 BiPAP 35 09/07/23 22:00 88 28 H 103/77 98 BiPAP 40 09/07/23 21:00 82 31 H 130/62 96 BiPAP 50 09/07/23 22:35 89 29 H 98 35 Coding Level of Care Code 29963 CRITICAL CARE 1ST 30-74M Diagnoses Severe sepsis A41.9; R65.20 Pneumonia J18.9 Gross hematuria R31.0 KAYLI (acute kidney injury) N17.9 Chronic obstructive pulmonary disease J44.9 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
[2023-09-08] MEDS ORDERED: SODIUM BICARBONATE 8.4% 150 MEQ in WATER, STERILE 1,000 ML IV SCH (08:30)
[2023-09-08] MEDS ORDERED: LEVOTHYROXINE SODIUM 75 MCG TABLET PO SCH (09:00)
[2023-09-08] MEDS ORDERED: ASPIRIN 81 MG ECTAB PO SCH (09:00)
[2023-09-08] MEDS ORDERED: VANCOMYCIN HCL 1,250 MG in SODIUM CHLORIDE 0.9% 500 ML IV SCH (09:00)
[2023-09-08] MEDS: ALBUMIN 25% 25 GM/100 ML VIAL IV SCH ×2 (09:01→10:47)
--- NOTE | 2023-09-08 09:22 | CT Scan Report ---
ABDOMEN AND PELVIS CT WITHOUT CONTRAST HISTORY: Acute chest and abdominal pain with septic shock. History of lymphoma. [place], septic shock TECHNIQUE: Multiaxial CT images of the abdomen and pelvis were performed without contrast. A dose lo wering technique was utilized adhering to the principles of ALARA. COMPARISON STUDY: Chest CT of same day, CT abdomen and pelvis 04/06/2023, 08/29/2019. FINDINGS: Limited exam without the use of IV contrast. Cardiomegaly with left ventricular wall calcif ications. Coronary artery calcifications with partially imaged pacer/AICD leads. Small bilateral pleu ral effusions. Mild left basilar opacities suggestive of atelectasis. Right lower lobe consolidation with volume loss and air bronchograms with mucous plugging. There is no free air. The unenhanced spleen is normal in size. Atrophic pancreas with coarse calcific ations compatible with chronic pancreatitis. Chronic pancreatic biliary ductal dilation. Distended ga llbladder with cholelithiasis. No biliary ductal dilation or definite gallbladder wall thickening. No rmal right adrenal gland. Unchanged mild chronic left adrenal gland thickening. The liver is within n ormal limits. 2 nonobstructing calculi in the left kidney measure up to 9 mm. There are a few punctate renal calcul i noted within the left ureteropelvic junction. Bilateral renal vascular calcifications. Mild dilatio n of the bilateral renal collecting systems with normal caliber of the ureters is a stable finding wi th chronic perinephric infiltration, right greater than left. Stable 1.2 cm right renal cyst. Decompr essed urinary bladder with Villareal catheter in place. Small fat filled inguinal hernias. Atherosclerosis of the aorta. Chronic retroperitoneal soft tissue thickening, most pronounced surroun ding the aorta, IVC and iliac vessels. Borderline enlarged retroperitoneal lymph nodes appear stable. No bowel obstruction. Moderate rectal fecal retention. Trace pelvic ascites. Normal appendix. Mild wa ll thickening of the cecum with partial distention. Anasarca. No acute fracture. Healing subacute non displaced posterior right eighth through 11th rib fractures. Unchanged sclerosis of the SI joints. IMPRESSION: 1. Small layering pleural effusions with right lower lobe consolidation and mucous plugging. Please r efer to the chest CT of same day for additional findings. 2. Soft tissue thickening with infiltration again noted within the retroperitoneum and also surroundi ng the bilateral kidneys compatible with the patient's clinical history of lymphoma. 3. Left nephrolithiasis with punctate calculi within the left ureteropelvic junction. There is unchan ged mild prominence of the bilateral renal collecting systems. 4. Distended gallbladder with cholelithiasis. This finding could be correlated with right upper quadr ant ultrasound. 5. Evidence of chronic pancreatitis. 6. Mild wall thickening of the cecum is likely secondary to partial distention. A nonspecific colitis considered less likely. 7. Healing subacute nondisplaced posterior right-sided rib fractures. 8. Additional findings as above. ACT 112: Negative or not required by law. The above report was generated using voice recognition software. It may contain grammatical, syntax o r spelling errors. Electronically signed by: Moise Recinos M.D. 09/08/2023 9:20 AM
--- NOTE | 2023-09-08 09:29 | CT Scan Report ---
CT OF THE CHEST WITHOUT IV CONTRAST CLINICAL HISTORY: Septic shock. COMPARISON STUDY: Chest CT April 27, 2023. Chest radiograph September 07, 2023. CT DOSE: 1941.13 mGy.cm TECHNIQUE: Axial images of the chest were obtained without IV contrast. Images were reviewed in the axial, sagittal, and coronal planes. IV contrast was not administered for this examination. Automat ed exposure control was utilized for the study. A dose lowering technique was utilized adhering to [facility] principles of ALARA. FINDINGS: Tip of the right internal jugular central line is within the SVC. There is a left subclavi an pacer/AICD. Mild cardiomegaly is noted. There is extensive coronary artery calcification. There is no pericardial effusion. Mildly enlarged mediastinal lymph nodes are unchanged since CT of April 27, 2023. There are small bilateral pleural effusions. There is no pneumothorax. Mild interlobular septal thickening is present. There is dense airspace opacity throughout the near entirety of the right low er lobe with minimal aeration. There is also moderate dependent airspace opacity within the right upp er lobe. Segmental left lower lobe airspace opacity is present. There are secretions within the dista l trachea and mainstem bronchi. There are extensive secretions within the right lower lobe segmental bronchi. No central obstructing mass is noted. No acute fractures within the bony thorax are noted. [facility] abdomen and pelvis CT will be reported separately. Gallstones within the gallbladder. Gallbladder is mildly distended. IMPRESSION: 1. Dense consolidation throughout the majority of the right lower lobe with moderate right upper lobe and left lower lobe airspace opacity. The findings favor multifocal pneumonia or aspiration pneumoni tis. Extensive secretions within the right lower lobe segmental bronchi. 2. Small bilateral pleural effusions. No pneumothorax. 3. Interlobular septal thickening consistent with mild interstitial pulmonary edema. 4. No change in mildly enlarged mediastinal lymph nodes since CT of 04/27/2023. 5. Mild cardiomegaly. Extensive coronary artery calcification. ACT 112: Negative or not required by law. Electronically signed by: Camron Santos M.D. 09/08/2023 9:27 AM
[2023-09-08] MEDS ORDERED: metroNIDAZOLE 500 MG/100 ML BAG IV STA (09:43)
[2023-09-08] MEDS ORDERED: CALCIUM CHLORIDE 10% 1,000 MG in DEXTROSE 5% 50 ML IV STA (10:00)
--- NOTE | 2023-09-08 11:08 | Cardiology Consultation ---
Date of Consultation September 08, 2023 Assessment & Plan (1) Severe sepsis: History: 1. Anterior myocardial infarction, most recent echocardiogram EF of 30-35% (05/2021) with an extensive LAD infarct. 2. Coronary artery disease status post angioplasty and stenting of the proximal left anterior descending artery with a bare-metal stent and an additional 3 x 9 mm bare-metal stent was placed in the mid LAD (12/2010). 3. Status post biventricular defibrillator 10/[address] [employer] Quadra Assura Device. 4. Cardiac catheterization 04/2021 with an 80% distal left main lesion into the proximal LAD; 90% D1 lesion; total occlusion of the proximal circumflex with [id number] collaterals; with total occlusion of the proximal RCA and left to right collaterals; ramus intermediate branch arises from the left main and is medium in size and mildly diseased. 5. Hyperlipidemia with low HDL. 6 CLL/lymphoma, status post treatment in 2011. 7. Diabetes mellitus type 2. 8. Chronic systolic heart failure. 9. Chronic kidney disease with a creatinine at this point which has normalized. 10. Spinal stenosis. 11. Hodgkin's lymphoma with completion of his treatment June 2016. 12. Chronic stable angina remaining functional class 2. 13. Hospitalization for septic shock, pneumonia, and acute kidney injury, 11/2021. (2) NSTEMI (non-ST elevated myocardial infarction): (3) Pneumonia: (4) CAD (coronary artery disease), [place] coronary artery: (5) Ischemic cardiomyopathy: Plan History: 1. Anterior myocardial infarction, most recent echocardiogram EF of 30-35% (05/2021) with an extensive LAD infarct. 2. Coronary artery disease status post angioplasty and stenting of the proximal left anterior descending artery with a bare-metal stent and an additional 3 x 9 mm bare-metal stent was placed in the mid LAD (12/2010). 3. Status post biventricular defibrillator 10/[address] [employer] [employer] Quadra Assura Device. 4. Cardiac catheterization 04/2021 with an 80% distal left main lesion into the proximal LAD; 90% D1 lesion; total occlusion of the proximal circumflex with [id number] collaterals; with total occlusion of the proximal RCA and left to right collaterals; ramus intermediate branch arises from the left main and is medium in size and mildly diseased. 5. Hyperlipidemia with low HDL. 6 CLL/lymphoma, status post treatment in 2011. 7. Diabetes mellitus type 2. 8. Chronic systolic heart failure. 9. Chronic kidney disease with a creatinine at this point which has normalized. 10. Spinal stenosis. 11. Hodgkin's lymphoma with completion of his treatment June 2016. 12. Chronic stable angina remaining functional class 2. 13. Hospitalization for septic shock, pneumonia, and acute kidney injury, 11/2021. Mr. Petersen is gravely ill and prognosis is very poor. His most recent labs have gone in the wrong direction. His lactate is 6.4, his hs trop is back over 5,000 and his procal is over 100. He is requiring vasopressor support and bipap. He had an echocardiogram this morning which is not resulted yet. His CT showed mild pulmonary edema and small effusion. He has a mild KAYLI. As discussed with the sr. operations manager, will hold off on for right now. His troponin is elevated. He denies any chest pain. Given his extensive cardiac history it is not surprising that he is ischemic in the setting of demand from sepsis. Agree with the recommendation from junior automation engineer cardiology overnight to avoid heparin drip for now given that he is experiencing ongoing hematuria and no overt signs of acute coronary syndrome. Mr. Alvarado is a dnr/dni. The sr. operations manager team spoke with the family and patient concerning goals this morning and were going to reconvene after the most recent lab work. Ultimately, if a decision is made to move to a palliative/comfort approach that would be appropriate. History of Present Illness Attending Physician: Christopher Shelton MD History of Present Illness Mr. Alvarado was admitted yesterday for septic shock secondary to pneumonia. He is currently requiring vasopressor support and bipap. His troponin did trend up and peaked at 4426. He denies any chest pain. He does feel sob. He is mentating surprisingly well for how sick he is. Allergies Allergy/AdvReac Type Severity Reaction Status Date / Time levofloxacin Allergy Unknown UNKNOWN Verified 08/11/23 11:14 REACTION Home Medications Medication Instructions Recorded Confirmed Type cholecalciferol (vitamin D3) 50 2,000 units PO DAILY #90 caps 06/27/19 09/07/23 Rx mcg (2,000 unit) capsule cyanocobalamin (vitamin B-12) 1,000 mcg PO DAILY #90 tabs 06/27/19 09/07/23 Rx 1,000 mcg tablet aspirin 81 mg tablet,delayed 81 mg PO DAILY 02/23/21 09/07/23 History release (Juan Low Dose Aspirin) albuterol sulfate 90 mcg/actuation 2 puff inhalation Q4H PRN 03/19/21 09/07/23 Rx aerosol inhaler shortness of breath or wheezing #6.7 grams nitroglycerin 0.4 mg sublingual 0.4 mg sublingual .COMPLEX #25 tabs 03/23/21 09/07/23 Rx tablet magnesium oxide 300 mg PO DAILY #30 tabs 12/14/21 09/07/23 Rx sacubitril 24 mg-valsartan 26 mg 1 tab PO DAILY #30 tabs 12/14/21 09/07/23 Rx tablet (Entresto) nebulizers #1 ea 06/18/22 08/11/23 Rx ranolazine 1,000 mg 500 mg PO BID #60 tabs 08/20/22 09/07/23 Rx tablet,extended release,12 hr levothyroxine 75 mcg capsule 75 mcg PO DAILY #90 caps 10/04/22 09/07/23 Rx insulin lispro 100 unit/mL See Rx Instructions subcut TID #15 11/03/22 09/07/23 Rx subcutaneous pen (Humalog KwikPen mL (U-100) Insulin) insulin glargine 100 unit/mL (3 16 unit subcut HS 11/29/22 09/07/23 History mL) subcutaneous pen (Lantus Solostar U-100 Insulin) metoprolol succinate 25 mg 12.5 mg PO DAILY 11/29/22 09/07/23 History tablet,extended release 24 hr albuterol sulfate 1.25 mg/3 mL 1.25 mg (3 mL) inhalation QID PRN 04/12/23 09/07/23 Rx solution for nebulization shortness of breath or wheezing #90 mL glucagon 1 mg solution for 1 mg subcut Q20M PRN hypoglycemia 04/13/23 09/07/23 Rx injection (Glucagon Emergency Kit) #1 ea atorvastatin 40 mg tablet 40 mg PO DAILY #90 tabs 06/01/23 09/07/23 Rx pen needle, diabetic 31 gauge x #200 ea 08/31/23 Rx 1/4" (1st Tier Unifine Pentips) furosemide 20 mg tablet 20 mg PO DAILY 09/07/23 09/07/23 History gabapentin 300 mg capsule 300 mg PO PM 09/07/23 09/07/23 History Patient History Medical History Abnormal weight loss Acute renal failure KAYLI (acute kidney injury) Bronchitis CAD (coronary artery disease), [place] coronary artery Changing skin lesion Chronic obstructive pulmonary disease CLL (chronic lymphocytic leukemia) Close exposure to [employer] 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 Dyspnea on exertion Gross hematuria Hodgkin lymphoma Hypothyroidism Hypothyroidism Injury of right elbow Ischemic cardiomyopathy Left carpal tunnel syndrome Leg edema Lumbar spinal stenosis severe at L4-5 Lung infiltrate Lymphoma Memory loss Myocardial infarction Neuropathy Pacemaker Postherpetic neuralgia Rib pain Sepsis Solar keratosis Squamous cell skin cancer Excised from right forearm on June 21, 2022 Streptococcus pneumoniae pneumonia Type 2 diabetes mellitus with microalbuminuria Vitamin B 12 deficiency Surgical History History of carpal tunnel surgery of left wrist History of cataract surgery History of colonoscopy Hx of detached retina repair Status post placement of cardiac pacemaker Family History Sister Colon cancer Cancer Unknown No problems noted. Brother Cardiac disorder Cancer Father Cancer Mother Cardiac disorder Diabetes Hypertension Social History Smoking Status: Never smoker Second Hand Exposure: No; Do You Dip or Chew Tobacco: No; Hx Alcohol Use: No Hx Substance Use: No Preferred Language: Finnish Communication Ability: Effective Visual Impairment: Limited Hearing Ability: Normal Pull Through [place]er Required: No Beliefs That Will Affect Care: None marital status: Current Living Situation: Family current occupational status: retired Other Information That Helps Us Care for You: No Feels Safe at Home: Yes Safety Concerns: Feels Safe At This Time Childhood Exposure to Second-Hand Smoke: No Dental Care, Regularly: Yes Physical Activity Frequency: Daily Seatbelt Use: always Sunscreen Use: No Assistive Devices: Cane and Glasses Review of Systems Review of Systems: All systems reviewed & are unremarkable except as noted in HPI & below Physical Exam Constitutional: + ill appearing and cooperative Respiratory: normal respiratory effort Auscultation: + rhonchi Cardiovascular: RRR, no murmur, no edema Skin: no rashes, warm and dry Neurologic: moves all extremities and awake Psychiatric: A+Ox3, euthymic affect Results & Data Vital Signs (Past 12 Hours) Vital Signs Temp Pulse Resp BP Pulse Ox O2 Del Method FiO2 09/08/23 08:00 BiPAP 30 09/08/23 08:00 86 09/08/23 08:53 103 H 30 H 100 35 09/08/23 06:00 98 H 30 H 98/59 L 95 BiPAP 35 09/08/23 05:00 99 H 32 H 113/65 92 BiPAP 35 09/08/23 02:10 99 H 30 H 97 35 09/08/23 04:00 36.8 C 101 H 30 H 108/62 95 BiPAP 35 09/08/23 03:00 93 H 30 H 106/57 L 92 BiPAP 35 09/08/23 02:00 90 28 H 94/64 L 97 BiPAP 35 09/08/23 01:00 96 H 27 H 107/61 99 BiPAP 35 09/08/23 00:00 37 C 91 H 28 H 107/58 L 96 BiPAP 35
[2023-09-08 11:20] LABS: BUN Creatinine Ratio 19.1 (10-20); Calcium 8.5 mg/dl (8.6-10.3); Creatinine Clr Calc Pharmacy 27.3 ml/min; Est GFR (African American) 34.8 ml/min; Magnesium 2.5 mg/dl (1.7-2.4); Potassium 3.7 mmol/L (3.5-5.1)
[2023-09-08 11:21] LABS: iSTAT Allen Test Pass; iSTAT Art Bld Gas pCO2 Correct 36 mmHg (35-46); iSTAT Art Bld Gas pH Corrected 7.245 (7.35-7.45); iSTAT Arterial Blood Gas HCO3 16 meg/L (19-24); iSTAT Arterial Blood Gas pCO2 36 mmHg (35-46); iSTAT Arterial Blood Gas pH 7.24 (7.35-7.45); iSTAT Arterial Blood Gas pO2 69 mmHg (80-95); iSTAT Arterial Blood Gas pO2 C 68; iSTAT Carbon Dioxide 17 mmol/L (24-31); iSTAT Hematocrit 29 % (42-52); iSTAT Hemoglobin 9.9 g/dl (14.0-18.0); iSTAT Potassium 5.2 mmol/L (3.3-5.0); iSTAT Site Art Line; iSTAT Sodium 137 mmol/L (135-144)
--- NOTE | 2023-09-08 11:49 | Pharmacy Report ---
Pharmacy PK ABX Note - Date of Service September 08, 2023 - Assessment and Plan Assessment 88 year old M receiving Vancomycin and Cefepime for treatment of sepsis. * Day #1 of antimicrobial therapy. * Lactate up to 6.4, white count up to 46k, SCr up to 1.94, Procal at 102. * Cultures pending. Plan Vancomycin * Loading dose: 1750 mg IV x 1 * Maintenance dose: 1000 mg IV every 24 hours * Regimen is predicted to achieve target AUC/ROCAEL of 400-600 mg/L.hr * Random level ordered for: 09/11/23 Pharmacy will continue to follow and will adjust dose/frequency as necessary. Thank you. Pharmacy has transitioned to AUC monitoring for vancomycin. AUC/ROCAEL is the preferred PK/PD target and is associated with decreased risk of nephrotoxicity compared to traditional trough targets.
[2023-09-08] MEDS ORDERED: SODIUM BICARBONATE 8.4% 150 MEQ, POTASSIUM CHLORIDE 20 MEQ in WATER, STERILE 1,000 ML IV SCH (13:15)
--- NOTE | 2023-09-08 15:54 | XCELERA ---
[id number] \\[email or web address]\[id number]
--- NOTE | 2023-09-08 16:04 | Urology Progress Note ---
Date of Service September 08, 2023 Assessment & Plan (1) Gross hematuria: Plan 88yo/M admitted septic shock with underlying pneumonia as the suspected source. -Urology consulted for hematuria. -Afebrile, labs reviewed -WBC 45.97, hemoglobin 9.0, creatinine 1.94. Continue to trend. -Urine culture with more than 3 types of organisms, all high counts. Blood cultures preliminary no growth. -He is receiving broad-spectrum antibiotics in form of cefepime and vancomycin. Cultures should be monitored and antibiotics be tailored based on these results. -Villareal catheter intact, draining with hematuria. Continue to monitor. Ok to hand irrigate as needed for clots, retention, suprapubic pain. -If he starts to have clots, can consider exchanging the catheter to a 3-way and start continuous bladder irrigation. -Anticoagulation per primary team. The patient's cardiac status would take precedence over his hematuria. Urology will manage hematuria as needed. -Urology will follow. Plan of care reviewed with Dr. Duke, concrete floor installer urologist. Admission and Anticipated Discharge Date Admission Date: September 07, 2023 Subjective Pt examined at bedside this afternoon in the ICU. Awake, resting in bed on arrival. Family at bedside. Villareal draining w/hematuria. Denies abdominal and suprapubic pain at present. On BiPAP. Afebrile at present. Review of Systems Constitutional: as per Subjective / HPI Genitourinary: + as per Subjective / HPI Physical Exam Constitutional: + ill appearing and cooperative Respiratory: On BiPAP Neurologic: awake Psychiatric: Orientation: alert Genitourinary: Villareal intact, draining w/ hematuria Results & Data Vital Signs (Past 12 Hours) Vital Signs Temp Pulse Resp BP Pulse Ox O2 Del Method FiO2 09/08/23 15:15 108 H 28 H 83 L 09/08/23 15:00 107 H 26 H 88 L 09/08/23 14:45 105 H 29 H 93 09/08/23 14:31 87/58 L 09/08/23 14:31 103 H 31 H 94 09/08/23 14:30 103 H 35 H 90 09/08/23 14:15 105 H 32 H 94 09/08/23 14:01 92/76 L 09/08/23 14:01 108 H 31 H 87 L 09/08/23 14:00 106 H 33 H 91 09/08/23 13:45 107 H 24 90 09/08/23 13:31 99/58 L 09/08/23 13:31 105 H 32 H 91 09/08/23 13:30 106 H 27 H 91 09/08/23 13:15 104 H 26 H 91 09/08/23 13:07 83/55 L 09/08/23 13:07 105 H 24 86 L 09/08/23 13:00 105 H 25 H 89 L 09/08/23 13:00 75/57 L 09/08/23 12:45 105 H 26 H 92 09/08/23 12:30 105 H 27 H 91 09/08/23 12:30 97/70 L 09/08/23 12:15 105 H 26 H 09/08/23 12:01 106 H 29 H 95 09/08/23 12:01 106/56 L 09/08/23 12:00 107 H 31 H 09/08/23 12:00 103 H 09/08/23 12:22 103 H 34 H 90 45 09/08/23 11:45 106 H 29 H 67 L 09/08/23 11:42 106 H 26 H 09/08/23 11:42 133/69 09/08/23 11:30 105 H 31 H 09/08/23 11:25 101/70 09/08/23 11:25 105 H 24 09/08/23 11:15 105 H 25 H 09/08/23 11:00 108 H 26 H 56 L 09/08/23 10:45 104 H 26 H 93 09/08/23 10:30 100 H 26 H 89 L 09/08/23 10:17 91 H 26 H 09/08/23 10:17 112/54 L 09/08/23 10:15 80 28 H 09/08/23 10:00 102 H 28 H 97 09/08/23 10:00 109/57 L 09/08/23 09:45 101 H 31 H 99 09/08/23 09:30 103 H 29 H 93 09/08/23 09:15 103 H 26 H 100 09/08/23 09:00 102 H 24 98 09/08/23 09:00 114/55 L 09/08/23 08:45 104 H 24 85 L 09/08/23 08:45 109/62 09/08/23 08:38 106 H 17 09/08/23 08:15 97 H 32 H 09/08/23 08:00 99 H 26 H 87 L 09/08/23 08:00 99/55 L 09/08/23 07:45 98 H 26 H 97 09/08/23 07:30 97 H 26 H 98 09/08/23 07:15 100 H 26 H 98 09/08/23 07:00 101 H 28 H 97 09/08/23 07:00 107/67 09/08/23 06:45 100 H 32 H 94 09/08/23 06:30 98 H 32 H 99 09/08/23 06:15 99 H 31 H 93 09/08/23 08:00 BiPAP 30 09/08/23 08:00 86 09/08/23 08:53 103 H 30 H 100 35 09/08/23 06:00 98 H 30 H 98/59 L 95 BiPAP 35 09/08/23 05:00 99 H 32 H 113/65 92 BiPAP 35 09/08/23 04:00 36.8 C 101 H 30 H 108/62 95 BiPAP 35 PG Care Time/CCT Total # of Minutes Spent Total Time Spent with Patient: Total time spent is greater than 50% in coordination of care (as documented) at patient's floor/unit and/or counseling patient: Coding Level of Care Code 61484 SUB INP/OBS CARE 2/35MIN Diagnoses Gross hematuria R31.0
--- NOTE | 2023-09-08 16:42 | Hospitalist Progress Note ---
Date of Service September 08, 2023 Assessment & Plan (1) Severe sepsis: Plan: Severe sepsis, suspect pneumonia. global weakness leukocytosis with background of CLL CXR/CT chest favoring right-sided pneumonia. PCT is elevated continue cefepime/vancomycin on admission. MRSA nares pending Lactate uptrending despite fluid resuscitation and supportive blood pressure with pressors High-sensitivity troponin 827, uptrending 1167 without chest pain. history of chronic systolic heart failure ejection fraction approximately 30% History of CHF EF approximately 30%. hold metoprolol resume when blood pressure permits, Entresto held for KAYLI and hypotension Isosorbide held for hypotension Continue aspirin daily atorvastatin, Patient has had persistent gross hematuria with 2X cystoscopies with normal findings, pending MRI for further evaluation. 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 May convert to basal bolus based on basal requirement of 16 units after downgrade (5) CLL (chronic lymphocytic leukemia): Plan: With history of both CLL and Hodgkin's lymphoma, patient reports he has relapsed CLL not on active treatment and under monitoring Differential of initial CBC which is leukocytosis is pending Plan DVT prophylaxis: Heparin due to KAYLI CODE STATUS: DNR/DNI. does not want intubation or CPR in the center of a complete cardiac or respiratory arrest Admission and Anticipated Discharge Date Admission Date: September 07, 2023 Subjective patient on BiPAP difficulty speaking is awake tries to answer questions does respond with purposeful movements is fairly dyspneic Physical Exam Physical Exam: coarse breath sounds are heard bilaterally without focal loss. Cardiac exam is regular but difficult to hear over breath sounds from BiPAP abdomen is NABS soft and nontender Results & Data Results & Data Vital Signs (Past 12 Hours) Vital Signs Pulse Resp BP Pulse Ox O2 Del Method FiO2 09/08/23 15:15 108 H 28 H 83 L 09/08/23 15:00 107 H 26 H 88 L 09/08/23 14:45 105 H 29 H 93 09/08/23 14:31 87/58 L 09/08/23 14:31 103 H 31 H 94 09/08/23 14:30 103 H 35 H 90 09/08/23 14:15 105 H 32 H 94 09/08/23 14:01 92/76 L 09/08/23 14:01 108 H 31 H 87 L 09/08/23 14:00 106 H 33 H 91 09/08/23 13:45 107 H 24 90 09/08/23 13:31 99/58 L 09/08/23 13:31 105 H 32 H 91 09/08/23 13:30 106 H 27 H 91 09/08/23 13:15 104 H 26 H 91 09/08/23 13:07 83/55 L 09/08/23 13:07 105 H 24 86 L 09/08/23 13:00 105 H 25 H 89 L 09/08/23 13:00 75/57 L 09/08/23 12:45 105 H 26 H 92 09/08/23 12:30 105 H 27 H 91 09/08/23 12:30 97/70 L 09/08/23 12:15 105 H 26 H 09/08/23 12:01 106 H 29 H 95 09/08/23 12:01 106/56 L 09/08/23 12:00 107 H 31 H 09/08/23 12:00 103 H 09/08/23 12:22 103 H 34 H 90 45 09/08/23 11:45 106 H 29 H 67 L 09/08/23 11:42 106 H 26 H 09/08/23 11:42 133/69 09/08/23 11:30 105 H 31 H 09/08/23 11:25 101/70 09/08/23 11:25 105 H 24 09/08/23 11:15 105 H 25 H 09/08/23 11:00 108 H 26 H 56 L 09/08/23 10:45 104 H 26 H 93 09/08/23 10:30 100 H 26 H 89 L 09/08/23 10:17 91 H 26 H 09/08/23 10:17 112/54 L 09/08/23 10:15 80 28 H 09/08/23 10:00 102 H 28 H 97 09/08/23 10:00 109/57 L 09/08/23 09:45 101 H 31 H 99 09/08/23 09:30 103 H 29 H 93 09/08/23 09:15 103 H 26 H 100 09/08/23 09:00 102 H 24 98 09/08/23 09:00 114/55 L 09/08/23 08:45 104 H 24 85 L 09/08/23 08:45 109/62 09/08/23 08:38 106 H 17 09/08/23 08:15 97 H 32 H 09/08/23 08:00 99 H 26 H 87 L 09/08/23 08:00 99/55 L 09/08/23 07:45 98 H 26 H 97 09/08/23 07:30 97 H 26 H 98 09/08/23 07:15 100 H 26 H 98 09/08/23 07:00 101 H 28 H 97 09/08/23 07:00 107/67 09/08/23 06:45 100 H 32 H 94 09/08/23 06:30 98 H 32 H 99 09/08/23 06:15 99 H 31 H 93 09/08/23 08:00 BiPAP 30 09/08/23 08:00 86 09/08/23 08:53 103 H 30 H 100 35 09/08/23 06:00 98 H 30 H 98/59 L 95 BiPAP 35 09/08/23 05:00 99 H 32 H 113/65 92 BiPAP 35 Laboratory Results reviewed CBC reviewed chemistry PG Care Time/CCT Total # of Minutes Spent Total Time Spent with Patient: Total time spent is greater than 50% in coordination of care (as documented) at patient's floor/unit and/or counseling patient: Coding Level of Care Code 49217 SUB INP/OBS CARE 3/50MIN Diagnoses Severe sepsis A41.9; R65.20 KAYLI (acute kidney injury) N17.9 Chronic obstructive pulmonary disease J44.9 Type 2 diabetes mellitus with microalbuminuria E11.29; R80.9 CLL (chronic lymphocytic leukemia) C91.90
[2023-09-08 16:49] LABS: BUN Creatinine Ratio 18.7 (10-20); Calcium 7.9 mg/dl (8.6-10.3); Creatinine Clr Calc Pharmacy 25.3 ml/min; Est GFR (African American) 31.8 ml/min; Est GFR (Non-African American) 27.4 ml/min; Magnesium 2.4 mg/dl (1.7-2.4); Phosphorus 5.3 mg/dl (2.5-4.9); Potassium 3.8 mmol/L (3.5-5.1)
[2023-09-08] MEDS: metroNIDAZOLE 500 MG/100 ML BAG IV SCH (17:06)
[2023-09-08 19:52] LABS: BUN Creatinine Ratio 19.1 (10-20); Calcium 7.6 mg/dl (8.6-10.3); Creatinine Clr Calc Pharmacy 24.6 ml/min; Est GFR (African American) 30.7 ml/min; Est GFR (Non-African American) 26.5 ml/min; Magnesium 2.4 mg/dl (1.7-2.4); Phosphorus 6.1 mg/dl (2.5-4.9)
[2023-09-08] MEDS ORDERED: STAT IV/IM STA (20:54)
[2023-09-08] MEDS ORDERED: SODIUM BICARBONATE 8.4% 150 MEQ, POTASSIUM CHLORIDE 20 MEQ in DEXTROSE 5% 1,000 ML IV SCH (21:00)
[2023-09-08] MEDS ORDERED: ALBUMIN 5% 250 ML IV ONE (22:49)
[2023-09-08 23:02] LABS: BUN Creatinine Ratio 17.5 (10-20); Calcium 7.5 mg/dl (8.6-10.3); Creatinine Clr Calc Pharmacy 22.1 ml/min; Est GFR (African American) 26.9 ml/min; Est GFR (Non-African American) 23.2 ml/min; Magnesium 2.5 mg/dl (1.7-2.4); Potassium 4.5 mmol/L (3.5-5.1)
--- NOTE | 2023-09-08 23:21 | Communication Note ---
Date of Service: September 08, 2023 Patient admitted for severe septic shock with sources being urine and/or pulmonary. Patient has continued to need increasing dose of vasopressors throug h the day and into this evening. He remains with minimal to no urine output as the day has progressed. His bladder scans reveal no urine in bladder and has been irrigated with no return of urine. His lactate continues to increase as well as worsening of his renal function and troponin continue to increase. Overall the patient is exhibiting multiorgan failure at this time. I did call and discuss follow on care with his son Arnaud. We discussed the options of adding on a third vasopressor, He is maintaining a MAP of 65-70 with escalation of Levophed, and adding another vasopressor on will likely continue to worsen his overall organ failure. His troponin level and Lactate levels are now most likely mortality indicators. I will provide him with some albumin for volume. His son did echo the same response as noted earlier in today's progress note, that his dad would not want to live on life support or other mechanical support and would not want to have to live in senior living or rehab facility following long ICU course. He currently would not want to add on further therapies that would just prolong his dad's suffering. He would like to continue current supportive care with fluids, continued current vasopressors and antibiotics. We did discuss likely challenging his kidney's with Lasix in the morning and if no response or continued worsening he would most likely move to comfort care at that time, which is reasonable given his age and comorbidities. This note is for communication and continuity purposes- no coding charge Sav THOMPSON ([facility]) [id number] Patient with worsening lactic acidosis and blood pressure remaining barely with MAPS 60- Family notified around 1400 and elected to come in and spend time with their family. Will place magnet on AICD to turn off defibrillator function. Likely to transition to full comfort measures when all family is here and they feel they are ready. Sav THOMPSON ([facility])
[2023-09-08] MEDS ORDERED: HALOPERIDOL LACTATE 5 MG/ML 1 ML VIAL IV STA (23:51)
[2023-09-09] MEDS ORDERED: Double Conc; 16mg in 500mL IV SCH
[2023-09-09] MEDS: NOREPINEPHRINE/D5W 4 MG/250 ML PLCT IV SCH ×2 (00:56→01:44)
[2023-09-09] MEDS: VASOPRESSIN 20 UNITS in 0.9 % SODIUM CHLORIDE 100 ML IV SCH (01:49)
[2023-09-09] MEDS: HEPARIN SOD 5,000 UNIT/0.5 ML VIAL SQ SCH (02:46)
[2023-09-09] MEDS: metroNIDAZOLE 500 MG/100 ML BAG IV SCH (02:53)
[2023-09-09] MEDS ORDERED: ATROPINE SULFATE 1% OP SOLN 5 ML BTL SL PRN (03:29)
[2023-09-09] MEDS ORDERED: ONDANSETRON INJ 2 MG/ML 2 ML VIAL IV PRN (03:29)
[2023-09-09] MEDS ORDERED: ONDANSETRON 4 MG OD TAB SL PRN (03:29)
[2023-09-09] MEDS ORDERED: LORazepam 0.5 MG TAB PO PRN (03:29)
[2023-09-09] MEDS ORDERED: HYDROmorphone BOLUS from BAG IV PRN (03:29)
[2023-09-09] MEDS ORDERED: LORazepam 2 MG/1 ML VIAL IV PRN (03:29)
[2023-09-09] MEDS ORDERED: HYDROmorphone INJ 0.5 MG/0.5 ML SYR IV PRN (03:29)
[2023-09-09] MEDS ORDERED: HYDROmorphone/NSS 100 MG/100 ML BAG IV SCH (03:30)
--- NOTE | 2023-09-09 04:46 | Death Pronouncement Note ---
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 Started on broad spectrum antibiotics for pneumonia and/or urinary source. Patient progressed to multiple vasopressors at high dose as well as multiorgan failure. Patient was with increasing lactate, renal failure, pulmonary failure, and incrasing Troponin levels. He was made comfort care early in the morning on september 09, 2023 and patient shortly thereafter. He was with his family. Summary Additional details: PRONOUNCEMENT NOTE - Date: 09/09/23 Time: 042 I was contacted by nursing staff regarding the patient cessation of spontaneous respirations, he was with paced rhythm without blood pressure and no mechanical pulse, following removal of vasopressor agents and movement to comfort measures. pronouncement at 0420 Short hospital course as above Assessment: I presented to the patients room for evaluation. Upon assessment, the patient was found to be in a terminal state. Pupils were fixed and dilated without response. No palpable pulses appreciated as well as no heart sounds were audible. No spontaneous breaths noted. No response to painful stimuli. Time of : 419 as pronounced by myself. Family- and immediate family were present at bedside. Appropriate response to grief appreciated. Condolences provided. Questions were addressed and emotional support was provided. Patients primary service was contacted and made aware of patient demise. Pronouncement section of the Certificate was filled out and signed by myself. Cause of : Primary - Severe Septic Shock Secondary - Pneumonia Contributing Causes of - Acute renal failure, CLL, ischemic cardiomyopathy Please feel free to contact me with any questions regarding the above-mentioned course. 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
--- NOTE | 2023-09-09 06:05 | Electrocardiogram Report ---
Test Reason : Blood Pressure : / mmHG Vent. Rate : 073 BPM Atrial Rate : 073 BPM P-R Int : 178 ms QRS Dur : 104 ms QT Int : 366 ms P-R-T Axes : 035 220 -20 degrees QTc Int : 403 ms Atrial-sensed ventricular-paced rhythm Biventricular pacemaker detected Abnormal ECG When compared with ECG of 13-JUN-2022 09:30, Vent. rate has increased BY 11 BPM Confirmed by Tom Gleason ([id number]) on 09/09/2023 6:04:53 AM Referred By: Confirmed By:Tom Gleason
--- NOTE | 2023-09-09 07:06 | Discharge Summary ---
Date of Service September 09, 2023 Admission HPI Per Admitting Provider Carson Alvarado is an 88-year-old male who presents to the ER with weakness and hematuria. Patient presents the ER and was found to be hypotensive. . Echo 11/2021: EF 25-29%. Large wall motion abnormality. Chest x-ray: Interstitial thickening and airspace opacity of the right mid and lower lung favoring pneumonia, asymmetric pulmonary edema is within the differential hypotensive Lactate 3.7 increasing to 4.1 trop 827 --> 1167 PCT 14.85 KAYLI baseline Cr ~1.5, 1.88 on admit PSH Cardiology: severel eft main and triple vessel CAD Received 3.5 L of crystalloid in ER (30cc/kg = 2550), remains hypotensive with uptrending biomarkers. +O2, uptrending. Carson reports he lives in a home with his . Was so tired and weak he could not standing this morning. Morgan normal last evening. Overnight felt more tired, tried to get up once or twice and couldn't get up/stand due to weakness. Denies chest pain, denies chest pressure. Denies dyspnea last night. Developed crackles and shortness of breath in the last hour since being in the ER. Feels his breathing is starting to get worse with 'a rattle in my throat' in the last few hours and currenly feels short of breath. No fevers or chills last few days No dysuria prior to coming in. Peed normally last night, has been bloody.Had s cysto with Urology which was unremarkable 2 weeks ago, and also has an unremarkable cysto in the spring per pt. Is pending MRI for followup of hematuria. Denies pelvic pain or pressure. Endorses hx of heart failure s/p 3 stents, denies hx of bipass/surgery. Pt reprots has 2 known residual blockages. Reports a history of chemotherapy for cancer, pt reports he had both CLL and then Hodgkins and due to this is not a candidate for bypass sx. Reports CLL has recurred and is being monitored. No active tx. Pt takes lasix for CHF, did not take any medications thi smorning. Takes glargine 16u, + sliding scale lispro. Has a pacemaker. Reports he is not sure why. Medical History: Reviewed Medications: Reviewed Surgical History: Reviewed Family history: Reviewed Allergies: Reviewed Social History: Denies tobacco/alcohol Code Status: DNR/DNI. Reports he would not want brought back if he were so ill that he were to undergo a complete cardiac or respiratory arrest. He would want a trial of intubation for declining respiratory status if this could help get him through a reversible condition such [place]. [place] [address]/09/23 secondary to severe septic shock from pneumonia pt was made comfort care prior to Discharge Exam pt was pronounced overnight Discharge Data Allergies Allergy/AdvReac Type Severity Reaction Status Date / Time levofloxacin Allergy Unknown UNKNOWN Verified 08/11/23 11:14 REACTION Consultations 09/07/23 13:33 ED Decision to Admit Stat 09/07/23 16:14 Consult Pole Setter Routine 09/07/23 17:16 Consult Urology Routine 09/08/23 01:39 Consult Cardiology Routine Ordered Studies 09/07/23 16:12 sono, invasive monitoring [US point of care ultrasound] Urgent 09/08/23 06:52 CT Abd and Pelvis [CT abd pelvis wo con] Stat CT chest diagnostic wo con Stat Hospital Course (1) Severe sepsis: Severe sepsis, suspect pneumonia. global weakness leukocytosis with background of CLL PT [place] [address]209/09/23 CXR/CT chest favoring right-sided pneumonia. PCT is elevated history of chronic systolic heart failure ejection fraction approximately 30% History of CHF EF approximately 30%. 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
[2023-09-09] MEDS ORDERED: PANTOprazole 40 MG in SYRINGE 0 ML IV SCH (11:00)
--- NOTE | 2023-09-09 20:46 | Electrocardiogram Report ---
Test Reason : Blood Pressure : / mmHG Vent. Rate : 092 BPM Atrial Rate : 092 BPM P-R Int : 000 ms QRS Dur : 142 ms QT Int : 388 ms P-R-T Axes : 052 218 -09 degrees QTc Int : 479 ms Ventricular-paced rhythm Biventricular pacemaker detected Abnormal ECG When compared with ECG of 07-SEP-2023 11:02, Vent. rate has increased BY 19 BPM Confirmed by Tom Gleason ([id number]) on 09/09/2023 8:45:43 PM Referred By: REFERRED SELF Confirmed By:Tom Gleason
[2023-09-11] MEDS ORDERED: VANCOMYCIN LEVEL ONE (07:30)
== END 2023-09-09 04:55 | disposition expired | DRG 871 ==
LOC: ED 10:30 → SUATTDRO 14:53 → 1E 14:53